=== PATIENT | male | born 1935 | race Caucasian/White ===

== ENCOUNTER 2017-07-27 20:28 | Emergency (ER) | payer MEDICARE, BC ==
[~2017-07-27] VITALS: Ht 5954.8 cm; Wt 95.0 kg
[~2017-07-27 20:28] MED LIST: FURO40TA4 PO; IPRA4AER IH; METH5TAB PO; MULT1TAB74 PO; NORCO10T PO; PANT-47 PO; POTA20TA19 PO
[2017-07-27 22:00] LABS: BASOPHILS % (AUTO) 0.5 % (0-1); EOSINOPHILS # (AUTO) 0.3 X10'3 (0-0.9); EOSINOPHILS % (AUTO) 3.6 % (0-6); HEMATOCRIT 31.5 % (42.0-52.0); HEMOGLOBIN 10.1 g/dl (14.0-17.9); LYMPHOCYTES # (AUTO) 1.1 X10'3 (1.1-4.8); LYMPHOCYTES % (AUTO) 15.7 % (21-51); MEAN CORPUSCULAR HGB CONC 31.9 % (33.0-36.5); MEAN CORPUSCULAR VOLUME 84.7 FL (78-98); MONOCYTES % (AUTO) 13.5 % (2-12); NEUTROPHILS # (AUTO) 4.7 X10'3 (1.8-7.7); NEUTROPHILS % (AUTO) 66.7 % (42-75); PLATELET COUNT 250 X10'3 (140-440); RED BLOOD COUNT 3.72 X10'6 (4.70-6.10); RED CELL DISTRIBUTION WIDTH 17.3 % (11.5-14.5); WHITE BLOOD COUNT 7.1 X10'3 (4.5-11.0)
[2017-07-27] MEDS ORDERED: LISI10TA4 (22:11)
[2017-07-27] MEDS ORDERED: PER5325T (22:11)
[2017-07-27] MEDS ORDERED: APIX5TAB3 (22:11)
[2017-07-27] MEDS ORDERED: CARV-50 (22:11)
[2017-07-27 22:16] LABS: ACETAMINOPHEN < 2.0 UG/ML (10-30); ALANINE AMINOTRANSFERASE 21 U/L (12-78); ALBUMIN 3.4 G/DL (3.4-5.0); ALBUMIN/GLOBULIN RATIO 1.1 (1.1-1.5); ALKALINE PHOSPHATASE 72 IU/L (46-116); ANION GAP 4 (8-16); ASPARTATE AMINO TRANSFERASE 19 U/L (10-37); BILIRUBIN,TOTAL 0.4 MG/DL (0.1-1.0); BLOOD UREA NITROGEN 20 MG/DL (7-18); BUN/CREATININE RATIO 16.3 (5.4-32.0); CALCIUM 8.2 MG/DL (8.5-10.1); CHLORIDE 105 MMOL/L (99-107); CREATININE 1.23 MG/DL (0.60-1.10); ETHANOL 0.202 GM/DL (0.0-0.010); GLUCOSE 94 MG/DL (70-104); POTASSIUM 4.2 MMOL/L (3.5-5.1); SODIUM 142 MMOL/L (135-145); TOTAL CARBON DIOXIDE 32.9 MMOL/L (24-32); TOTAL PROTEIN 6.5 G/DL (6.4-8.2); eGFR 57 ML/MIN
[2017-07-27 22:51] LABS: URINE AMPHETAMINE SCREEN NEGATIVE (Neg); URINE BARBITUATE SCREEN NEGATIVE (Neg); URINE BENZODIAZEPINES SCREEN NEGATIVE (Neg); URINE CANNABINOID SCREEN NEGATIVE (Neg); URINE COCAINE SCREEN NEGATIVE (Neg); URINE METHADONE SCREEN POSITIVE (Neg); URINE OPIATE SCREEN NEGATIVE (Neg); URINE PHENCYCLIDINE SCREEN NEGATIVE (Neg)
[2017-07-28] MEDS ORDERED: ipratropium/albuterol 3ml nebule IH PRN (03:30)
[2017-07-28] MEDS ORDERED: lisinopril 10 MG tablet PO SCH (08:00)
[2017-07-28] MEDS ORDERED: carVEDilol 12.5mg tablet PO SCH (08:00)
[2017-07-28] MEDS ORDERED: potassium Cl 20 mEq SR tablet PO SCH (08:00)
[2017-07-28] MEDS ORDERED: methadone 5mg tablet PO SCH (08:00)
[2017-07-28] MEDS ORDERED: multivitamins, therapeutics tablet PO SCH (08:00)
[2017-07-28] MEDS ORDERED: apixaban 5mg tablet PO SCH (08:00)
[2017-07-28] MEDS ORDERED: HYDROcodone/acetaminophen 10/325mg tab PO ONE (08:45)
[2017-07-28] MEDS ORDERED: LORazepam 1 MG tablet PO ONE (10:45)
[2017-07-28] MEDS ORDERED: LORA0.5T PO (11:20)
[2017-07-28 11:35] VITALS: BP 130/84
== END 2017-07-28 11:42 | disposition home or self-care (01) ==
LOC: ER 20:28
DX: T51.91XA Toxic effect of unspecified alcohol, accidental (unintentional), initial encounter (principal); R45.851 Suicidal ideations; I11.0 Hypertensive heart disease with heart failure; I50.9 Heart failure, unspecified; I48.91 Unspecified atrial fibrillation; J44.9 Chronic obstructive pulmonary disease, unspecified; K21.9 Gastro-esophageal reflux disease without esophagitis; G89.29 Other chronic pain; Z95.0 Presence of cardiac pacemaker; Z79.899 Other long term (current) drug therapy; Y92.89 Other specified places as the place of occurrence of the external cause
CPT/HCPCS: 36415; 80053; 80305; 80320; 80329; 85025; 94760; 99284

== ENCOUNTER 2018-02-07 07:53 | Day surgery (SDC) | payer MEDICARE, BC ==
[2018-01-31 14:37] LABS: BASOPHILS % (AUTO) 0.5 % (0-1); EOSINOPHILS # (AUTO) 0.2 X10'3 (0-0.9); EOSINOPHILS % (AUTO) 2.9 % (0-6); LYMPHOCYTES # (AUTO) 1.1 X10'3 (1.1-4.8); LYMPHOCYTES % (AUTO) 15.6 % (21-51); MEAN CORPUSCULAR HEMOGLOBIN 28.1 PG (27.0-31.0); MEAN CORPUSCULAR HGB CONC 31.8 % (33.0-36.5); MEAN CORPUSCULAR VOLUME 88.1 FL (78-98); MEAN PLATELET VOLUME 6.4 FL (7.4-10.4); MONOCYTES % (AUTO) 14.1 % (2-12); NEUTROPHILS # (AUTO) 4.6 X10'3 (1.8-7.7); NEUTROPHILS % (AUTO) 66.9 % (42-75); PRE OP HEMATOCRIT 33.9 % (42.0-52.0); PRE OP PLATELET COUNT 167 X10'3 (140-440); RED BLOOD COUNT 3.85 X10'6 (4.70-6.10); RED CELL DISTRIBUTION WIDTH 19.7 % (11.5-14.5)
[2018-01-31 14:42] LABS: PRE OP HEMOGLOBIN 10.8 g/dL (14.0-17.9)
[2018-01-31 14:47] LABS: PRE OP INR 1.1 INR; PRE OP PROTIME 10.9 SECONDS (9.0-12.0)
[2018-01-31 14:51] LABS: ALBUMIN 3.5 G/DL (3.4-5.0); ALBUMIN/GLOBULIN RATIO 1.1 (1.1-1.5); ALKALINE PHOSPHATASE 53 IU/L (46-116); BLOOD UREA NITROGEN 24 MG/DL (7-18); BUN/CREATININE RATIO 23.8 (5.4-32.0); CHLORIDE 103 MMOL/L (99-107); CREATININE 1.01 MG/DL (0.60-1.10); PRE OP ALT 18 U/L (30-65); PRE OP ANION GAP 3 (8-16); PRE OP AST 17 U/L (10-37); PRE OP BILIRUB, TOTAL 0.4 MG/DL (0.0-1.0); PRE OP GLUCOSE 108 MG/DL (70-104); PRE OP POTASSIUM 4.4 MMOL/L (3.4-5.1); PRE OP SODIUM 140 MMOL/L (135-145); TOTAL CARBON DIOXIDE 33.6 MMOL/L (24-32); TOTAL PROTEIN 6.7 G/DL (6.4-8.2); eGFR 71 ML/MIN
[~2018-02-07] VITALS: Ht 180.3 cm; Wt 100.5 kg
[2018-02-07] VITALS (7 sets, daily range): BP systolic 130–144; BP diastolic 74–82
[~2018-02-07 07:53] MED LIST changes: +ALBU18HF2 IH; +ASPI-1265 PO; +CARV-50 PO; +Cefazolin 2GM/50ML dext iso,osmotic IVPB IV ONE; +DOCUMENT DATE & TIME OF BETA-BLOCKER PO ONE; -FURO40TA4 PO; +FURO80TA87 PO; -IPRA4AER IH; +LISI40TA4 PO; -MULT1TAB74 PO; -PANT-47 PO; +albuterol 2.5 MG/3 ML nebule NEB ONE; +famotidine 20mg tablet PO ONE; +ringers solution, lacted 1,000 ML IV SCH
[2018-02-07] MEDS ORDERED: LIDOcaine 0.5% (5mg/ml) 50ml vial ONE (09:00)
[2018-02-07] MEDS ORDERED: BUPIVAcaine/PF 2.5mg/ml (0.25%) 10ml vial ONE (10:13)
[2018-02-07] MEDS ORDERED: ondansetron/PF 4mg/2ml inj IV PRN (10:20)
[2018-02-07] MEDS ORDERED: ringers solution, lacted 1,000 ML IV SCH (10:20)
[2018-02-07] MEDS ORDERED: morphine 4 MG/ML inj SYRINge IV PRN (10:20)
[2018-02-07] MEDS ORDERED: midazolam 2 mg/2 ml injection ONE (10:22)
[2018-02-07] MEDS ORDERED: fentaNYL/PF 50MCG/1 ML 2ML syringe ONE (10:22)
[2018-02-07] MEDS ORDERED: labetalol 5mg/ml 20ml inj. IV ONE (10:44)
== END 2018-02-07 11:37 | disposition home or self-care (01) ==
LOC: PAS 07:53
PROVIDERS: ATTEND Orthopaedic Surgery Hand Surgery
DX: G56.02 Carpal tunnel syndrome, left upper limb (principal); I48.91 Unspecified atrial fibrillation; I42.8 Other cardiomyopathies; J44.9 Chronic obstructive pulmonary disease, unspecified; I49.8 Other specified cardiac arrhythmias; I11.0 Hypertensive heart disease with heart failure; I50.9 Heart failure, unspecified; G89.29 Other chronic pain; K21.9 Gastro-esophageal reflux disease without esophagitis; M06.9 Rheumatoid arthritis, unspecified; Z90.89 Acquired absence of other organs; Z79.82 Long term (current) use of aspirin; Z95.1 Presence of aortocoronary bypass graft; Z99.81 Dependence on supplemental oxygen; Z72.89 Other problems related to lifestyle; Z90.49 Acquired absence of other specified parts of digestive tract; Z95.0 Presence of cardiac pacemaker; Z86.14 Personal history of Methicillin resistant Staphylococcus aureus infection; Z87.891 Personal history of nicotine dependence; Z87.01 Personal history of pneumonia (recurrent); Z85.028 Personal history of other malignant neoplasm of stomach; Z96.641 Presence of right artificial hip joint; Z79.891 Long term (current) use of opiate analgesic; Z79.2 Long term (current) use of antibiotics; Z98.890 Other specified postprocedural states; Z79.899 Other long term (current) drug therapy
CPT/HCPCS: 36415; 64721; 71046; 80053; 85025; 85610; 85730; 93005; A6222; A6449; J0690; J2001; J2250; J3010; J3490; J7120

== ENCOUNTER 2018-03-16 12:04 | Inpatient (IN) | payer MEDICARE, BC ==
[~2018-03-16] VITALS: Ht 180.3 cm; Wt 97.7 kg
[~2018-03-16 12:04] MED LIST changes: -Cefazolin 2GM/50ML dext iso,osmotic IVPB IV ONE; -DOCUMENT DATE & TIME OF BETA-BLOCKER PO ONE; -albuterol 2.5 MG/3 ML nebule NEB ONE; -famotidine 20mg tablet PO ONE; -ringers solution, lacted 1,000 ML IV SCH
[2018-03-16] MEDS ORDERED: normal saline 1000ML IV soln IVB ONE (12:30)
[2018-03-16] MEDS ORDERED: ondansetron/PF 4mg/2ml inj IV ONE ×2 (12:30)
[2018-03-16] MEDS ORDERED: pantoprazole 40 MG vial IV ONE ×2 (12:30→14:30)
[2018-03-16 12:57] LABS: BASOPHILS # (AUTO) 0.1 X10'3 (0-0.2); BASOPHILS % (AUTO) 0.8 % (0-1); EOSINOPHILS # (AUTO) 0.3 X10'3 (0-0.9); EOSINOPHILS % (AUTO) 2.8 % (0-6); HEMATOCRIT 36.4 % (42.0-52.0); HEMOGLOBIN 12.1 g/dl (14.0-17.9); LYMPHOCYTES # (AUTO) 1.1 X10'3 (1.1-4.8); LYMPHOCYTES % (AUTO) 9.3 % (21-51); MEAN CORPUSCULAR HEMOGLOBIN 30.1 PG (27.0-31.0); MEAN CORPUSCULAR HGB CONC 33.3 % (33.0-36.5); MEAN CORPUSCULAR VOLUME 90.2 FL (78-98); MEAN PLATELET VOLUME 6.6 FL (7.4-10.4); MONOCYTES # (AUTO) 1.1 X10'3 (0-0.9); MONOCYTES % (AUTO) 9.3 % (2-12); NEUTROPHILS % (AUTO) 77.8 % (42-75); PLATELET COUNT 227 X10'3 (140-440); RED BLOOD COUNT 4.03 X10'6 (4.70-6.10); RED CELL DISTRIBUTION WIDTH 19.2 % (11.5-14.5); WHITE BLOOD COUNT 11.5 X10'3 (4.5-11.0)
[2018-03-16 13:07] LABS: PROTHROMBIN TIME 10.3 SECONDS (9.0-12.0)
[2018-03-16 13:16] LABS: ALANINE AMINOTRANSFERASE 13 U/L (12-78); ALBUMIN 3.7 G/DL (3.4-5.0); ALBUMIN/GLOBULIN RATIO 1.3 (1.1-1.5); ALKALINE PHOSPHATASE 55 IU/L (46-116); ANION GAP 7 (8-16); ASPARTATE AMINO TRANSFERASE 14 U/L (10-37); BILIRUBIN,TOTAL 0.7 MG/DL (0.1-1.0); BLOOD UREA NITROGEN 51 MG/DL (7-18); BUN/CREATININE RATIO 41.5 (5.4-32.0); CALCIUM 8.6 MG/DL (8.5-10.1); CHLORIDE 103 MMOL/L (99-107); CREATININE 1.23 MG/DL (0.60-1.10); GLUCOSE 116 MG/DL (70-104); POTASSIUM 4.6 MMOL/L (3.5-5.1); SODIUM 138 MMOL/L (135-145); TOTAL CARBON DIOXIDE 28.3 MMOL/L (24-32); TOTAL PROTEIN 6.6 G/DL (6.4-8.2); eGFR 57 ML/MIN
[2018-03-16 13:21] LABS: MAGNESIUM 2.1 MG/DL (1.5-2.4); TROPONIN I < 0.04 NG/ML (0.0-0.05)
[2018-03-16] MEDS: morphine 4 MG/ML inj SYRINge IV PRN ×4 (13:25→19:30)
[2018-03-16] MEDS ORDERED: TRAM50TA2 PO (13:36)
[2018-03-16 14:30] LABS: OCCULT BLOOD STOOL POSITIVE (Neg)
[2018-03-16] MEDS: normal saline 1000ml 1,000 ML IV SCH (14:49)
[2018-03-16] MEDS ORDERED: magnesium 1gm/100ml D5W IVPB 100 ML IV PRN (14:50)
[2018-03-16] MEDS ORDERED: diphenhydrAMINE 50 mg/ml inj IV PRN (14:50)
[2018-03-16] MEDS ORDERED: magnesium hydroxide 30ml (MOM) UD suspension PO PRN (14:50)
[2018-03-16] MEDS ORDERED: magnesium 4gm in 100ml NS 100 ML IV PRN (14:50)
[2018-03-16] MEDS ORDERED: potassium Cl 20 mEq SR tablet PO PRN ×2 (14:50)
[2018-03-16] MEDS ORDERED: potassium Cl 40MEQ/NS 500ml 500 ML IV PRN ×2 (14:50)
[2018-03-16] MEDS ORDERED: mag hydrox/Alum hydrox/simeth 30ml oral suspension PO PRN (14:50)
[2018-03-16] MEDS ORDERED: diphenhydrAMINE 25mg capsule PO PRN (14:50)
[2018-03-16] MEDS ORDERED: metoclopramide 5 mg/ml inj IV PRN (14:50)
[2018-03-16] MEDS ORDERED: HYDROcodone/acetaminophen 5mg/325mg tablet PO PRN (14:50)
[2018-03-16] MEDS: K and/or MAG REPLACEMENT MC SCH (14:50)
[2018-03-16] MEDS ORDERED: morphine 4 MG/ML inj SYRINge IV PRN (14:50)
[2018-03-16] MEDS ORDERED: acetaminophen 325mg tablet PO PRN ×2 (14:50)
[2018-03-16] MEDS ORDERED: ondansetron/PF 4mg/2ml inj IV PRN (14:50)
[2018-03-16] MEDS ORDERED: magnesium Cl slow-release 64mg tablet PO PRN (14:50)
[2018-03-16 15:25] LABS: CLARITY,URINE CLEAR (Clear); COLOR,URINE YELLOW (Yellow); GLUCOSE, URINE NEGATIVE (Neg); KETONES,URINE NEGATIVE (Neg); LEUKOCYTE ESTERASE ,URINE NEGATIVE (Neg); NITRITES, URINE NEGATIVE (Neg); OCCULT BLOOD,URINE NEGATIVE (Neg); PROTEIN,URINE NEGATIVE (Neg); UROBILINOGEN,URINE 0.2 E.U/dL (0.2-1.0)
[2018-03-16 15:30] LABS: UA COLLECTION TYPE URINAL
[2018-03-16 16:07] VITALS: BP 144/94
[2018-03-16] MEDS: pantoprazole 40MG/NS 100ML BAG 100 ML IV SCH ×2 (17:12→21:14)
[2018-03-16 19:20] VITALS: BP 135/62
[2018-03-16] MEDS ORDERED: temazepam 15mg capsule PO PRN (21:00)
[2018-03-16] MEDS: carVEDilol 12.5mg tablet PO SCH (21:13)
[2018-03-16] MEDS: albuterol 2.5 MG/3 ML nebule NEB SCH (22:19)
[2018-03-16 23:00] VITALS: BP 103/54
[2018-03-16] MEDS: HYDROcodone/acetaminophen 10/325mg tab PO PRN (23:39)
[2018-03-17] VITALS (15 sets, daily range): BP systolic 91–144; BP diastolic 43–88
[2018-03-17] MEDS: pantoprazole 40MG/NS 100ML BAG 100 ML IV SCH ×5 (01:39→21:04)
[2018-03-17] MEDS: normal saline 1000ml 1,000 ML IV SCH ×3 (01:40→20:49)
[2018-03-17] MEDS: HYDROcodone/acetaminophen 10/325mg tab PO PRN ×4 (03:48→23:50)
[2018-03-17] MEDS: morphine 4 MG/ML inj SYRINge IV PRN ×3 (05:02→15:51)
[2018-03-17 05:46] LABS: BASOPHILS % (AUTO) 0.4 % (0-1); EOSINOPHILS # (AUTO) 0.2 X10'3 (0-0.9); HEMATOCRIT 32.4 % (42.0-52.0); HEMOGLOBIN 10.7 g/dl (14.0-17.9); LYMPHOCYTES # (AUTO) 1.2 X10'3 (1.1-4.8); LYMPHOCYTES % (AUTO) 14.9 % (21-51); MEAN CORPUSCULAR HEMOGLOBIN 30.2 PG (27.0-31.0); MEAN CORPUSCULAR HGB CONC 32.9 % (33.0-36.5); MEAN CORPUSCULAR VOLUME 91.7 FL (78-98); MEAN PLATELET VOLUME 7.3 FL (7.4-10.4); MONOCYTES # (AUTO) 0.9 X10'3 (0-0.9); MONOCYTES % (AUTO) 11.9 % (2-12); NEUTROPHILS # (AUTO) 5.6 X10'3 (1.8-7.7); NEUTROPHILS % (AUTO) 69.8 % (42-75); PLATELET COUNT 199 X10'3 (140-440); RED BLOOD COUNT 3.54 X10'6 (4.70-6.10); RED CELL DISTRIBUTION WIDTH 18.3 % (11.5-14.5); WHITE BLOOD COUNT 7.9 X10'3 (4.5-11.0)
[2018-03-17 06:06] LABS: ANION GAP 7 (8-16); BLOOD UREA NITROGEN 32 MG/DL (7-18); BUN/CREATININE RATIO 34.8 (5.4-32.0); CHLORIDE 107 MMOL/L (99-107); CREATININE 0.92 MG/DL (0.60-1.10); GLUCOSE 93 MG/DL (70-104); POTASSIUM 4.3 MMOL/L (3.5-5.1); SODIUM 140 MMOL/L (135-145); TOTAL CARBON DIOXIDE 26.3 MMOL/L (24-32); eGFR 79 ML/MIN
[2018-03-17 06:07] LABS: ALANINE AMINOTRANSFERASE 11 U/L (12-78); ALBUMIN 2.9 G/DL (3.4-5.0); ALKALINE PHOSPHATASE 44 IU/L (46-116); ASPARTATE AMINO TRANSFERASE 12 U/L (10-37); BILIRUBIN,TOTAL 0.4 MG/DL (0.1-1.0); TOTAL PROTEIN 5.7 G/DL (6.4-8.2)
[2018-03-17] MEDS: K and/or MAG REPLACEMENT MC SCH (08:00)
[2018-03-17] MEDS: furosemide 40mg tablet PO SCH (08:26)
[2018-03-17] MEDS: carVEDilol 12.5mg tablet PO SCH ×2 (08:26→20:00)
[2018-03-17] MEDS: lisinopril 10 MG tablet PO SCH (08:26)
[2018-03-17] MEDS: albuterol 2.5 MG/3 ML nebule NEB SCH ×2 (09:39→20:38)
[2018-03-17] MEDS ORDERED: MIDAZolam 5mg/5ml vial ONE (12:48)
[2018-03-17] MEDS ORDERED: fentaNYL/PF 50MCG/1 ML 2ML syringe ONE (12:48)
[2018-03-17] MEDS ORDERED: LIDOcaine Viscous 15ml cup ONE (12:48)
[2018-03-18] MEDS: normal saline 1000ml 1,000 ML IV SCH ×2 (01:12→11:16)
[2018-03-18] MEDS: pantoprazole 40MG/NS 100ML BAG 100 ML IV SCH ×3 (01:47→11:15)
[2018-03-18] MEDS: morphine 4 MG/ML inj SYRINge IV PRN ×2 (01:56→07:50)
[2018-03-18] MEDS: HYDROcodone/acetaminophen 10/325mg tab PO PRN ×2 (05:40→11:19)
[2018-03-18 06:13] LABS: BASOPHILS % (AUTO) 0.3 % (0-1); EOSINOPHILS # (AUTO) 0.3 X10'3 (0-0.9); EOSINOPHILS % (AUTO) 3.5 % (0-6); HEMATOCRIT 30.8 % (42.0-52.0); HEMOGLOBIN 10.1 g/dl (14.0-17.9); LYMPHOCYTES % (AUTO) 12.4 % (21-51); MEAN CORPUSCULAR HEMOGLOBIN 29.8 PG (27.0-31.0); MEAN CORPUSCULAR VOLUME 90.2 FL (78-98); MEAN PLATELET VOLUME 6.6 FL (7.4-10.4); MONOCYTES # (AUTO) 0.8 X10'3 (0-0.9); NEUTROPHILS # (AUTO) 5.6 X10'3 (1.8-7.7); NEUTROPHILS % (AUTO) 72.8 % (42-75); PLATELET COUNT 182 X10'3 (140-440); RED BLOOD COUNT 3.41 X10'6 (4.70-6.10); RED CELL DISTRIBUTION WIDTH 19.5 % (11.5-14.5); WHITE BLOOD COUNT 7.7 X10'3 (4.5-11.0)
[2018-03-18 06:19] LABS: ALANINE AMINOTRANSFERASE 19 U/L (12-78); ALBUMIN 2.9 G/DL (3.4-5.0); ALKALINE PHOSPHATASE 45 IU/L (46-116); ANION GAP 5 (8-16); ASPARTATE AMINO TRANSFERASE 15 U/L (10-37); BILIRUBIN,TOTAL 0.6 MG/DL (0.1-1.0); BLOOD UREA NITROGEN 23 MG/DL (7-18); BUN/CREATININE RATIO 21.3 (5.4-32.0); CALCIUM 8.3 MG/DL (8.5-10.1); CHLORIDE 105 MMOL/L (99-107); CREATININE 1.08 MG/DL (0.60-1.10); GLUCOSE 114 MG/DL (70-104); MAGNESIUM 1.9 MG/DL (1.5-2.4); POTASSIUM 4.4 MMOL/L (3.5-5.1); SODIUM 139 MMOL/L (135-145); TOTAL CARBON DIOXIDE 28.6 MMOL/L (24-32); TOTAL PROTEIN 5.8 G/DL (6.4-8.2); eGFR 66 ML/MIN
[2018-03-18 06:34] LABS: ANISOCYTOSIS 2+; PLATELET ESTIMATE NORMAL
[2018-03-18 07:00] VITALS: BP 120/51
[2018-03-18] MEDS: lisinopril 10 MG tablet PO SCH (07:48)
[2018-03-18] MEDS: carVEDilol 12.5mg tablet PO SCH (07:49)
[2018-03-18] MEDS: furosemide 40mg tablet PO SCH (07:49)
[2018-03-18] MEDS: K and/or MAG REPLACEMENT MC SCH (08:00)
[2018-03-18] MEDS: albuterol 2.5 MG/3 ML nebule NEB SCH (09:04)
[2018-03-18 11:00] VITALS: BP 106/58
[2018-03-18] MEDS ORDERED: MELA3TAB PO (14:34)
[2018-03-18] MEDS ORDERED: PANT40TA4 PO (14:34)
== END 2018-03-18 15:44 | disposition home or self-care (01) | DRG 377 ==
LOC: ER 12:04 → ED HOLD 14:49 → EDBEDREQ 15:12 → SUR 3N 15:55
PROVIDERS: ADMIT Family Medicine; ATTEND Family Medicine
PROC: 0DB68ZX Excision of Stomach, Via Natural or Artificial Opening Endoscopic, Diagnostic (ICD-10-PCS; principal; 2018-03-17)
DX: K92.1 Melena (principal); N17.0 Acute kidney failure with tubular necrosis; S27.321A Contusion of lung, unilateral, initial encounter; K26.9 Duodenal ulcer, unspecified as acute or chronic, without hemorrhage or perforation; K29.70 Gastritis, unspecified, without bleeding; E86.0 Dehydration; I25.10 Atherosclerotic heart disease of native coronary artery without angina pectoris; D35.01 Benign neoplasm of right adrenal gland; G89.4 Chronic pain syndrome; I11.0 Hypertensive heart disease with heart failure; I48.91 Unspecified atrial fibrillation; I50.9 Heart failure, unspecified; J44.9 Chronic obstructive pulmonary disease, unspecified; J98.4 Other disorders of lung; K21.9 Gastro-esophageal reflux disease without esophagitis; M54.9 Dorsalgia, unspecified; I25.2 Old myocardial infarction; Z98.0 Intestinal bypass and anastomosis status; Z95.0 Presence of cardiac pacemaker; Z79.82 Long term (current) use of aspirin; Z79.899 Other long term (current) drug therapy; Z87.891 Personal history of nicotine dependence; Z87.01 Personal history of pneumonia (recurrent); Z80.0 Family history of malignant neoplasm of digestive organs
CPT/HCPCS: 36415; 43239; 71045; 71250; 80053; 81003; 82272; 83735; 83880; 84100; 84484; 85025; 85610; 86885; 86900; 86901; 87070; 88305; 93005; 94640; 94760; 96361; 96374; 96375; 99285; A4620; C9113; G0500; J2250; J2270; J2405; J3010; J7030

== ENCOUNTER 2018-04-11 16:01 | Emergency (ER) | payer MEDICARE, BC ==
[~2018-04-11] VITALS: Ht 647.4 cm; Wt 101.8 kg
[~2018-04-11 16:01] MED LIST changes: -ASPI-1265 PO; +MELA3TAB PO; -METH5TAB PO; +PANT40TA4 PO; +TRAM50TA2 PO
[2018-04-11 16:40] LABS: BASOPHILS % (AUTO) 0.3 % (0-1); EOSINOPHILS # (AUTO) 0.2 X10'3 (0-0.9); EOSINOPHILS % (AUTO) 2.9 % (0-6); HEMOGLOBIN 8.9 g/dl (14.0-17.9); LYMPHOCYTES # (AUTO) 0.9 X10'3 (1.1-4.8); LYMPHOCYTES % (AUTO) 13.7 % (21-51); MEAN CORPUSCULAR HEMOGLOBIN 28.4 PG (27.0-31.0); MEAN CORPUSCULAR HGB CONC 31.9 % (33.0-36.5); MEAN CORPUSCULAR VOLUME 88.8 FL (78-98); MONOCYTES % (AUTO) 15.3 % (2-12); NEUTROPHILS # (AUTO) 4.5 X10'3 (1.8-7.7); NEUTROPHILS % (AUTO) 67.8 % (42-75); PLATELET COUNT 177 X10'3 (140-440); RED BLOOD COUNT 3.16 X10'6 (4.70-6.10); RED CELL DISTRIBUTION WIDTH 19.1 % (11.5-14.5); WHITE BLOOD COUNT 6.6 X10'3 (4.5-11.0)
[2018-04-11 16:49] LABS: INR 1.1 INR; PARTIAL THROMBOPLASTIN TIME 29 SECONDS (22-32); PROTHROMBIN TIME 11.3 SECONDS (9.0-12.0)
[2018-04-11 16:54] LABS: ALANINE AMINOTRANSFERASE 22 U/L (12-78); ALBUMIN 3.3 G/DL (3.4-5.0); ALBUMIN/GLOBULIN RATIO 1.1 (1.1-1.5); ALKALINE PHOSPHATASE 60 IU/L (46-116); ANION GAP 4 (8-16); ASPARTATE AMINO TRANSFERASE 20 U/L (10-37); BILIRUBIN,TOTAL 0.7 MG/DL (0.1-1.0); BLOOD UREA NITROGEN 19 MG/DL (7-18); BUN/CREATININE RATIO 17.1 (5.4-32.0); CALCIUM 8.4 MG/DL (8.5-10.1); CHLORIDE 105 MMOL/L (99-107); CREATININE 1.11 MG/DL (0.60-1.10); GLUCOSE 90 MG/DL (70-104); POTASSIUM 4.2 MMOL/L (3.5-5.1); SODIUM 145 MMOL/L (135-145); TOTAL CARBON DIOXIDE 36.1 MMOL/L (24-32); TOTAL PROTEIN 6.4 G/DL (6.4-8.2); eGFR 64 ML/MIN
[2018-04-11] MEDS ORDERED: LEVO750T46 PO (17:43)
[2018-04-11] MEDS ORDERED: furosemide 10 MG/1 ML 10ml inj IV ONE (17:55)
[2018-04-11 18:32] VITALS: BP 147/89
== END 2018-04-11 18:35 | disposition home or self-care (01) ==
LOC: ER 16:01
DX: J90 Pleural effusion, not elsewhere classified (principal); J18.1 Lobar pneumonia, unspecified organism; I48.91 Unspecified atrial fibrillation; I25.10 Atherosclerotic heart disease of native coronary artery without angina pectoris; I11.0 Hypertensive heart disease with heart failure; I50.9 Heart failure, unspecified; I25.2 Old myocardial infarction; J44.9 Chronic obstructive pulmonary disease, unspecified; K21.9 Gastro-esophageal reflux disease without esophagitis; G89.29 Other chronic pain; Z87.11 Personal history of peptic ulcer disease; Z90.49 Acquired absence of other specified parts of digestive tract; Z95.0 Presence of cardiac pacemaker; Z98.890 Other specified postprocedural states; Z79.899 Other long term (current) drug therapy; Z99.81 Dependence on supplemental oxygen
CPT/HCPCS: 36415; 71045; 80053; 84484; 85025; 85610; 85730; 93005; 96374; 99285; J1940

== ENCOUNTER 2018-04-18 13:16 | Inpatient (IN) | payer MEDICARE, BC ==
[2018-04-18] VITALS (10 sets, daily range): BP systolic 111–144; BP diastolic 62–86
[~2018-04-18] VITALS: Ht 182.9 cm; Wt 111.3 kg
[~2018-04-18 13:16] MED LIST changes: +LEVO750T46 PO
[2018-04-18 13:45] LABS: BASOPHILS # (AUTO) 0.1 X10'3 (0-0.2); BASOPHILS % (AUTO) 1.4 % (0-1); EOSINOPHILS % (AUTO) 0.5 % (0-6); HEMOGLOBIN 9.5 g/dl (14.0-17.9); LYMPHOCYTES # (AUTO) 0.8 X10'3 (1.1-4.8); LYMPHOCYTES % (AUTO) 9.8 % (21-51); MEAN CORPUSCULAR HEMOGLOBIN 27.5 PG (27.0-31.0); MEAN CORPUSCULAR HGB CONC 31.5 % (33.0-36.5); MEAN CORPUSCULAR VOLUME 87.4 FL (78-98); MEAN PLATELET VOLUME 6.6 FL (7.4-10.4); MONOCYTES # (AUTO) 1.4 X10'3 (0-0.9); MONOCYTES % (AUTO) 17.4 % (2-12); NEUTROPHILS # (AUTO) 5.9 X10'3 (1.8-7.7); NEUTROPHILS % (AUTO) 70.9 % (42-75); PLATELET COUNT 174 X10'3 (140-440); RED BLOOD COUNT 3.44 X10'6 (4.70-6.10); RED CELL DISTRIBUTION WIDTH 19.7 % (11.5-14.5); WHITE BLOOD COUNT 8.3 X10'3 (4.5-11.0)
[2018-04-18 13:55] LABS: INR 1.4 INR; PARTIAL THROMBOPLASTIN TIME 31 SECONDS (22-32)
[2018-04-18 13:59] LABS: ANISOCYTOSIS 2+; ELLIPTOCYTES FEW; HYPOCHROMASIA 1+; PLATELET ESTIMATE NORMAL; POLYCHROMASIA 1+; TARGET CELLS FEW
[2018-04-18 14:00] LABS: SCHISTOCYTES FEW
[2018-04-18 14:07] LABS: ALANINE AMINOTRANSFERASE 22 U/L (12-78); ALBUMIN 3.5 G/DL (3.4-5.0); ALBUMIN/GLOBULIN RATIO 1.2 (1.1-1.5); ALKALINE PHOSPHATASE 67 IU/L (46-116); ANION GAP 8 (8-16); ASPARTATE AMINO TRANSFERASE 26 U/L (10-37); BLOOD UREA NITROGEN 41 MG/DL (7-18); BUN/CREATININE RATIO 22.7 (5.4-32.0); CALCIUM 9.6 MG/DL (8.5-10.1); CHLORIDE 100 MMOL/L (99-107); CREATININE 1.81 MG/DL (0.60-1.10); GLUCOSE 104 MG/DL (70-104); POTASSIUM 4.2 MMOL/L (3.5-5.1); SODIUM 142 MMOL/L (135-145); TOTAL CARBON DIOXIDE 34.2 MMOL/L (24-32); TOTAL PROTEIN 6.5 G/DL (6.4-8.2); eGFR 36 ML/MIN
[2018-04-18] MEDS ORDERED: acetaminophen 325mg tablet PO PRN ×2 (15:25)
[2018-04-18] MEDS ORDERED: mag hydrox/Alum hydrox/simeth 30ml oral suspension PO PRN (15:25)
[2018-04-18] MEDS ORDERED: potassium Cl 40MEQ/NS 500ml 500 ML IV PRN ×2 (15:25)
[2018-04-18] MEDS ORDERED: potassium Cl 20 mEq SR tablet PO PRN ×2 (15:25)
[2018-04-18] MEDS ORDERED: magnesium Cl slow-release 64mg tablet PO PRN (15:25)
[2018-04-18] MEDS ORDERED: magnesium 4gm in 100ml NS 100 ML IV PRN (15:25)
[2018-04-18] MEDS ORDERED: magnesium hydroxide 30ml (MOM) UD suspension PO PRN (15:25)
[2018-04-18] MEDS ORDERED: magnesium 1gm/100ml D5W IVPB 100 ML IV PRN (15:25)
[2018-04-18] MEDS ORDERED: ondansetron/PF 4mg/2ml inj IV PRN (15:25)
[2018-04-18] MEDS ORDERED: albuterol 2.5 MG/3 ML nebule NEB PRN (15:35)
[2018-04-18] MEDS: normal saline 1000ml 1,000 ML IV SCH (16:00)
[2018-04-18] MEDS: pantoprazole 40mg Tablet.DR PO SCH (20:39)
[2018-04-18] MEDS: heparin, porcine 5000 units/ml vial SQ SCH (20:40)
[2018-04-18] MEDS ORDERED: temazepam 15mg capsule PO PRN (21:00)
[2018-04-18 21:21] LABS: HEMATOCRIT 28.9 % (42.0-52.0); HEMOGLOBIN 9.2 g/dl (14.0-17.9); MEAN CORPUSCULAR HEMOGLOBIN 27.3 PG (27.0-31.0); MEAN CORPUSCULAR HGB CONC 31.8 % (33.0-36.5); MEAN CORPUSCULAR VOLUME 85.8 FL (78-98); MEAN PLATELET VOLUME 6.5 FL (7.4-10.4); PLATELET COUNT 153 X10'3 (140-440); RED BLOOD COUNT 3.36 X10'6 (4.70-6.10); WHITE BLOOD COUNT 6.8 X10'3 (4.5-11.0)
[2018-04-18] MEDS: HYDROcodone/acetaminophen 5mg/325mg tablet PO PRN (22:15)
[2018-04-19] VITALS (8 sets, daily range): BP systolic 104–158; BP diastolic 53–93
[2018-04-19] MEDS: morphine 2 MG/ML inj. syringe IV PRN (01:32)
[2018-04-19] MEDS: normal saline 1000ml 1,000 ML IV SCH ×2 (01:32→13:08)
[2018-04-19 01:44] LABS: INR 1.3 INR; PROTHROMBIN TIME 13.3 SECONDS (9.0-12.0)
[2018-04-19 01:49] LABS: ANION GAP 9 (8-16); BLOOD UREA NITROGEN 37 MG/DL (7-18); BUN/CREATININE RATIO 26.1 (5.4-32.0); CHLORIDE 102 MMOL/L (99-107); CREATININE 1.42 MG/DL (0.60-1.10); GLUCOSE 109 MG/DL (70-104); POTASSIUM 3.5 MMOL/L (3.5-5.1); SODIUM 142 MMOL/L (135-145); TOTAL CARBON DIOXIDE 31.2 MMOL/L (24-32)
[2018-04-19 01:50] LABS: ALANINE AMINOTRANSFERASE 22 U/L (12-78); ALBUMIN 3.2 G/DL (3.4-5.0); ALBUMIN/GLOBULIN RATIO 1.1 (1.1-1.5); ALKALINE PHOSPHATASE 66 IU/L (46-116); ASPARTATE AMINO TRANSFERASE 25 U/L (10-37); BILIRUBIN,TOTAL 0.9 MG/DL (0.1-1.0); CALCIUM 8.5 MG/DL (8.5-10.1); TOTAL PROTEIN 6.1 G/DL (6.4-8.2); eGFR 48 ML/MIN
[2018-04-19 01:52] LABS: MAGNESIUM 2.2 MG/DL (1.5-2.4)
[2018-04-19 02:25] LABS: HEMOGLOBIN 9.9 g/dl (14.0-17.9); RED BLOOD COUNT 3.65 X10'6 (4.70-6.10); WHITE BLOOD COUNT 7.5 X10'3 (4.5-11.0)
[2018-04-19 02:26] LABS: HEMATOCRIT 31.5 % (42.0-52.0); MEAN CORPUSCULAR HEMOGLOBIN 27.2 PG (27.0-31.0); MEAN CORPUSCULAR HGB CONC 31.5 % (33.0-36.5); MEAN CORPUSCULAR VOLUME 86.4 FL (78-98); PLATELET COUNT 147 X10'3 (140-440); RED CELL DISTRIBUTION WIDTH 18.5 % (11.5-14.5)
[2018-04-19] MEDS: HYDROcodone/acetaminophen 5mg/325mg tablet PO PRN ×4 (03:13→19:55)
[2018-04-19 03:14] LABS: ANISOCYTOSIS 2+; PLATELET ESTIMATE NORMAL; TOTAL CELLS COUNTED 100
[2018-04-19 03:15] LABS: HYPOCHROMASIA 1+; POLYCHROMASIA 1+
[2018-04-19] MEDS: K and/or MAG REPLACEMENT MC SCH (07:32)
[2018-04-19] MEDS: pantoprazole 40mg Tablet.DR PO SCH ×2 (07:37→19:54)
[2018-04-19] MEDS: heparin, porcine 5000 units/ml vial SQ SCH ×2 (07:38→20:01)
[2018-04-19 09:59] LABS: BASOPHILS % (AUTO) 0 % (0-1); EOSINOPHILS # (AUTO) 0.2 X10'3 (0-0.9); EOSINOPHILS % (AUTO) 2.4 % (0-6); HEMATOCRIT 32.3 % (42.0-52.0); HEMOGLOBIN 10.4 g/dl (14.0-17.9); LYMPHOCYTES # (AUTO) 0.6 X10'3 (1.1-4.8); MEAN CORPUSCULAR HEMOGLOBIN 27.8 PG (27.0-31.0); MEAN CORPUSCULAR HGB CONC 32.2 % (33.0-36.5); MEAN CORPUSCULAR VOLUME 86.4 FL (78-98); MEAN PLATELET VOLUME 6.7 FL (7.4-10.4); MONOCYTES % (AUTO) 12.2 % (2-12); NEUTROPHILS # (AUTO) 6.7 X10'3 (1.8-7.7); NEUTROPHILS % (AUTO) 78.4 % (42-75); PLATELET COUNT 173 X10'3 (140-440); RED BLOOD COUNT 3.74 X10'6 (4.70-6.10); RED CELL DISTRIBUTION WIDTH 19.7 % (11.5-14.5); WHITE BLOOD COUNT 8.5 X10'3 (4.5-11.0)
[2018-04-19 10:43] LABS: ANISOCYTOSIS 2+; HYPOCHROMASIA 1+; PLATELET ESTIMATE NORMAL; POLYCHROMASIA 1+; TARGET CELLS FEW
[2018-04-19 10:44] LABS: ELLIPTOCYTES FEW; SCHISTOCYTES FEW; TEAR DROP CELLS FEW
[2018-04-19 15:45] LABS: BASOPHILS # (AUTO) 0.1 X10'3 (0-0.2); BASOPHILS % (AUTO) 1.3 % (0-1); EOSINOPHILS # (AUTO) 0.1 X10'3 (0-0.9); EOSINOPHILS % (AUTO) 1.5 % (0-6); HEMATOCRIT 33.9 % (42.0-52.0); HEMOGLOBIN 10.7 g/dl (14.0-17.9); LYMPHOCYTES # (AUTO) 0.8 X10'3 (1.1-4.8); LYMPHOCYTES % (AUTO) 8.6 % (21-51); MEAN CORPUSCULAR HEMOGLOBIN 27.5 PG (27.0-31.0); MEAN CORPUSCULAR HGB CONC 31.6 % (33.0-36.5); MEAN CORPUSCULAR VOLUME 87.1 FL (78-98); MEAN PLATELET VOLUME 6.7 FL (7.4-10.4); MONOCYTES # (AUTO) 1.5 X10'3 (0-0.9); NEUTROPHILS % (AUTO) 72.6 % (42-75); PLATELET COUNT 198 X10'3 (140-440); RED BLOOD COUNT 3.89 X10'6 (4.70-6.10); RED CELL DISTRIBUTION WIDTH 19.9 % (11.5-14.5); WHITE BLOOD COUNT 9.6 X10'3 (4.5-11.0)
[2018-04-19] MEDS: aspirin 81mg tablet.DR PO SCH (16:19)
[2018-04-19] MEDS: potassium Cl 20mEq in NS 1,000 ML IV SCH (18:05)
[2018-04-19] MEDS: metoprolol tartrate 12.5mg (1/2 tablet) PO SCH (19:54)
[2018-04-20 03:00] VITALS: BP 159/86
[2018-04-20] MEDS: potassium Cl 20mEq in NS 1,000 ML IV SCH ×2 (05:12→21:43)
[2018-04-20 06:00] VITALS: BP 110/72
[2018-04-20 06:31] LABS: INR 1.2 INR; PROTHROMBIN TIME 12.7 SECONDS (9.0-12.0)
[2018-04-20 06:38] LABS: BASOPHILS % (AUTO) 0.4 % (0-1); EOSINOPHILS # (AUTO) 0.2 X10'3 (0-0.9); EOSINOPHILS % (AUTO) 2.2 % (0-6); HEMATOCRIT 33.6 % (42.0-52.0); HEMOGLOBIN 10.6 g/dl (14.0-17.9); LYMPHOCYTES # (AUTO) 0.9 X10'3 (1.1-4.8); LYMPHOCYTES % (AUTO) 9.3 % (21-51); MEAN CORPUSCULAR HEMOGLOBIN 27.6 PG (27.0-31.0); MEAN CORPUSCULAR HGB CONC 31.7 % (33.0-36.5); MEAN CORPUSCULAR VOLUME 87.2 FL (78-98); MEAN PLATELET VOLUME 6.7 FL (7.4-10.4); MONOCYTES # (AUTO) 1.8 X10'3 (0-0.9); MONOCYTES % (AUTO) 18.5 % (2-12); NEUTROPHILS # (AUTO) 6.9 X10'3 (1.8-7.7); NEUTROPHILS % (AUTO) 69.6 % (42-75); PLATELET COUNT 196 X10'3 (140-440); RED BLOOD COUNT 3.85 X10'6 (4.70-6.10); RED CELL DISTRIBUTION WIDTH 20.2 % (11.5-14.5)
[2018-04-20 06:47] LABS: ALANINE AMINOTRANSFERASE 24 U/L (12-78); ALBUMIN 3.4 G/DL (3.4-5.0); ALBUMIN/GLOBULIN RATIO 1.1 (1.1-1.5); ALKALINE PHOSPHATASE 65 IU/L (46-116); ANION GAP 9 (8-16); ASPARTATE AMINO TRANSFERASE 27 U/L (10-37); BILIRUBIN,TOTAL 1.1 MG/DL (0.1-1.0); BLOOD UREA NITROGEN 30 MG/DL (7-18); BUN/CREATININE RATIO 23.4 (5.4-32.0); CALCIUM 8.8 MG/DL (8.5-10.1); CHLORIDE 103 MMOL/L (99-107); CREATININE 1.28 MG/DL (0.60-1.10); GLUCOSE 129 MG/DL (70-104); MAGNESIUM 2.2 MG/DL (1.5-2.4); POTASSIUM 3.7 MMOL/L (3.5-5.1); SODIUM 144 MMOL/L (135-145); TOTAL CARBON DIOXIDE 32.2 MMOL/L (24-32); TOTAL PROTEIN 6.5 G/DL (6.4-8.2); eGFR 54 ML/MIN
[2018-04-20] MEDS: metoprolol tartrate 12.5mg (1/2 tablet) PO SCH (07:46)
[2018-04-20] MEDS: pantoprazole 40mg Tablet.DR PO SCH ×2 (07:46→19:13)
[2018-04-20] MEDS: heparin, porcine 5000 units/ml vial SQ SCH ×2 (08:00→19:13)
[2018-04-20] MEDS: K and/or MAG REPLACEMENT MC SCH (08:00)
[2018-04-20] MEDS: aspirin 81mg tablet.DR PO SCH (08:00)
[2018-04-20 11:00] VITALS: BP 148/63
[2018-04-20] MEDS: lisinopril 2.5mg tablet PO SCH (12:50)
[2018-04-20 15:00] VITALS: BP 146/86
[2018-04-20] MEDS: HYDROcodone/acetaminophen 5mg/325mg tablet PO PRN ×2 (15:23→23:01)
[2018-04-20 19:00] VITALS: BP 122/89
[2018-04-20] MEDS: metoprolol tartrate 25mg tablet PO SCH (19:13)
[2018-04-20 23:00] VITALS: BP 128/76
[2018-04-21 03:00] VITALS: BP 123/64
[2018-04-21] MEDS: HYDROcodone/acetaminophen 5mg/325mg tablet PO PRN ×5 (03:15→21:27)
[2018-04-21 05:34] LABS: INR 1.2 INR; PROTHROMBIN TIME 12.5 SECONDS (9.0-12.0)
[2018-04-21 05:47] LABS: ALANINE AMINOTRANSFERASE 24 U/L (12-78); ALBUMIN 3.3 G/DL (3.4-5.0); ALBUMIN/GLOBULIN RATIO 1.1 (1.1-1.5); ALKALINE PHOSPHATASE 66 IU/L (46-116); ANION GAP 7 (8-16); ASPARTATE AMINO TRANSFERASE 30 U/L (10-37); BILIRUBIN,TOTAL 1.1 MG/DL (0.1-1.0); BLOOD UREA NITROGEN 25 MG/DL (7-18); BUN/CREATININE RATIO 21.6 (5.4-32.0); CALCIUM 8.6 MG/DL (8.5-10.1); CHLORIDE 102 MMOL/L (99-107); CREATININE 1.16 MG/DL (0.60-1.10); GLUCOSE 104 MG/DL (70-104); MAGNESIUM 2.2 MG/DL (1.5-2.4); POTASSIUM 3.8 MMOL/L (3.5-5.1); SODIUM 142 MMOL/L (135-145); TOTAL CARBON DIOXIDE 32.6 MMOL/L (24-32); TOTAL PROTEIN 6.2 G/DL (6.4-8.2); eGFR 61 ML/MIN
[2018-04-21 06:25] VITALS: BP 105/67
[2018-04-21] MEDS: metoprolol tartrate 25mg tablet PO SCH ×2 (07:23→19:42)
[2018-04-21] MEDS: pantoprazole 40mg Tablet.DR PO SCH ×2 (07:23→19:42)
[2018-04-21] MEDS: lisinopril 2.5mg tablet PO SCH (07:23)
[2018-04-21] MEDS: heparin, porcine 5000 units/ml vial SQ SCH ×2 (07:24→19:42)
[2018-04-21] MEDS: aspirin 81mg tablet.DR PO SCH (08:00)
[2018-04-21] MEDS: K and/or MAG REPLACEMENT MC SCH (08:21)
[2018-04-21 08:47] LABS: CLARITY,URINE CLEAR (Clear); COLOR,URINE YELLOW (Yellow); GLUCOSE, URINE NEGATIVE (Neg); KETONES,URINE NEGATIVE (Neg); LEUKOCYTE ESTERASE ,URINE NEGATIVE (Neg); NITRITES, URINE NEGATIVE (Neg); OCCULT BLOOD,URINE NEGATIVE (Neg); PROTEIN,URINE 30 mg/dl (Neg); UROBILINOGEN,URINE 0.2 E.U/dL (0.2-1.0)
[2018-04-21 09:10] LABS: UA COLLECTION TYPE CLN CATCH MIDSTREAM
[2018-04-21 09:11] LABS: SQUAMOUS EPITHELIAL CELL,UR FEW /LPF (FEW)
[2018-04-21 09:12] LABS: BACTERIA,URINE FEW /HPF (Neg); RBC,URINE 0-2 /HPF (0-2); WBC,URINE 0-4 /HPF (0-4)
[2018-04-21 11:00] VITALS: BP 121/71
[2018-04-21 15:00] VITALS: BP 108/55
[2018-04-21 19:00] VITALS: BP 106/61
[2018-04-21] MEDS ORDERED: bisacodyl 10mg suppository rectal RC PRN (19:25)
[2018-04-21 23:00] VITALS: BP 89/71
[2018-04-22] MEDS: HYDROcodone/acetaminophen 5mg/325mg tablet PO PRN ×2 (01:40→05:42)
[2018-04-22 03:00] VITALS: BP 120/62
[2018-04-22 06:00] VITALS: BP 105/59
[2018-04-22 07:11] LABS: INR 1.2 INR; PROTHROMBIN TIME 12.1 SECONDS (9.0-12.0)
[2018-04-22] MEDS: metoprolol tartrate 25mg tablet PO SCH (07:15)
[2018-04-22] MEDS: pantoprazole 40mg Tablet.DR PO SCH (07:15)
[2018-04-22] MEDS: heparin, porcine 5000 units/ml vial SQ SCH (07:16)
[2018-04-22] MEDS: lisinopril 2.5mg tablet PO SCH (07:16)
[2018-04-22] MEDS: morphine 2 MG/ML inj. syringe IV PRN (07:17)
[2018-04-22 07:30] LABS: ALANINE AMINOTRANSFERASE 24 U/L (12-78); ALBUMIN 3.2 G/DL (3.4-5.0); ALBUMIN/GLOBULIN RATIO 1.1 (1.1-1.5); ALKALINE PHOSPHATASE 61 IU/L (46-116); ANION GAP 9 (8-16); ASPARTATE AMINO TRANSFERASE 30 U/L (10-37); BILIRUBIN,TOTAL 0.9 MG/DL (0.1-1.0); BLOOD UREA NITROGEN 29 MG/DL (7-18); BUN/CREATININE RATIO 22.1 (5.4-32.0); CALCIUM 8.6 MG/DL (8.5-10.1); CHLORIDE 102 MMOL/L (99-107); CREATININE 1.31 MG/DL (0.60-1.10); GLUCOSE 109 MG/DL (70-104); MAGNESIUM 2.2 MG/DL (1.5-2.4); POTASSIUM 4.2 MMOL/L (3.5-5.1); SODIUM 143 MMOL/L (135-145); TOTAL CARBON DIOXIDE 32.4 MMOL/L (24-32); TOTAL PROTEIN 6.1 G/DL (6.4-8.2); eGFR 53 ML/MIN
[2018-04-22 07:40] LABS: BASOPHILS % (AUTO) 0.5 % (0-1); EOSINOPHILS # (AUTO) 0.2 X10'3 (0-0.9); EOSINOPHILS % (AUTO) 2.6 % (0-6); HEMATOCRIT 33.3 % (42.0-52.0); HEMOGLOBIN 10.4 g/dl (14.0-17.9); LYMPHOCYTES # (AUTO) 0.9 X10'3 (1.1-4.8); LYMPHOCYTES % (AUTO) 10.4 % (21-51); MEAN CORPUSCULAR HEMOGLOBIN 27.4 PG (27.0-31.0); MEAN CORPUSCULAR HGB CONC 31.1 % (33.0-36.5); MEAN PLATELET VOLUME 6.8 FL (7.4-10.4); MONOCYTES # (AUTO) 1.5 X10'3 (0-0.9); MONOCYTES % (AUTO) 16.7 % (2-12); NEUTROPHILS # (AUTO) 6.3 X10'3 (1.8-7.7); NEUTROPHILS % (AUTO) 69.8 % (42-75); PLATELET COUNT 218 X10'3 (140-440); RED BLOOD COUNT 3.79 X10'6 (4.70-6.10); RED CELL DISTRIBUTION WIDTH 20.7 % (11.5-14.5)
[2018-04-22] MEDS: K and/or MAG REPLACEMENT MC SCH (08:00)
[2018-04-22] MEDS: aspirin 81mg tablet.DR PO SCH (08:00)
[2018-04-22] MEDS ORDERED: polyethylene glycol 3350 17gm powd pack PO SCH (08:00)
[2018-04-22 08:14] LABS: PLATELET ESTIMATE NORMAL
[2018-04-22 08:15] LABS: ANISOCYTOSIS 3+
[2018-04-22 08:18] LABS: POLYCHROMASIA 1+
[2018-04-22 11:00] VITALS: BP 110/71
[2018-04-24 15:24] LABS: OCCULT BLOOD STOOL NEGATIVE (Neg)
== END 2018-04-22 12:58 | disposition left against medical advice (07) | DRG 811 ==
LOC: ER 13:17 → ED HOLD 15:24 → PCU 3S 16:20
PROVIDERS: ADMIT Internal Medicine; ATTEND Internal Medicine
PROC: 30233N1 Transfusion of Nonautologous Red Blood Cells into Peripheral Vein, Percutaneous Approach (ICD-10-PCS; principal; 2018-04-18)
PROC: 4B02XSZ Measurement of Cardiac Pacemaker, External Approach (ICD-10-PCS; 2018-04-20)
DX: D64.9 Anemia, unspecified (principal); N17.0 Acute kidney failure with tubular necrosis; I13.0 Hypertensive heart and chronic kidney disease with heart failure and stage 1 through stage 4 chronic kidney disease, or unspecified chronic kidney disease; I47.2 Ventricular tachycardia; I42.9 Cardiomyopathy, unspecified; R55 Syncope and collapse; I48.91 Unspecified atrial fibrillation; R09.02 Hypoxemia; I25.10 Atherosclerotic heart disease of native coronary artery without angina pectoris; G89.4 Chronic pain syndrome; K59.00 Constipation, unspecified; M54.9 Dorsalgia, unspecified; N18.3 Chronic kidney disease, stage 3 (moderate); E86.0 Dehydration; I65.21 Occlusion and stenosis of right carotid artery; Z53.21 Procedure and treatment not carried out due to patient leaving prior to being seen by health care provider; I50.9 Heart failure, unspecified; J44.9 Chronic obstructive pulmonary disease, unspecified; K21.9 Gastro-esophageal reflux disease without esophagitis; Z95.0 Presence of cardiac pacemaker; Z87.11 Personal history of peptic ulcer disease; Z87.01 Personal history of pneumonia (recurrent); I25.2 Old myocardial infarction
CPT/HCPCS: 36415; 70450; 71045; 74022; 80053; 81001; 82272; 83735; 84484; 85025; 85027; 85610; 85730; 86885; 86900; 86901; 86920; 87070; 93005; 93306; 93880; 97116; 97162; 97530; 99285; A6212; J1644; J2270; J2405; J7030; P9016

== ENCOUNTER 2018-05-12 12:07 | Inpatient (IN) | payer MEDICARE, BC ==
[~2018-05-12] VITALS: Ht 182.9 cm; Wt 102.0 kg
[~2018-05-12 12:07] MED LIST changes: -LEVO750T46 PO
[2018-05-12 12:41] LABS: BASOPHILS % (AUTO) 0.2 % (0-1); EOSINOPHILS % (AUTO) 0.3 % (0-6); HEMATOCRIT 36.8 % (42.0-52.0); HEMOGLOBIN 11.3 g/dl (14.0-17.9); LYMPHOCYTES # (AUTO) 0.8 X10'3 (1.1-4.8); LYMPHOCYTES % (AUTO) 6.8 % (21-51); MEAN CORPUSCULAR HEMOGLOBIN 26.6 PG (27.0-31.0); MEAN CORPUSCULAR HGB CONC 30.7 % (33.0-36.5); MEAN CORPUSCULAR VOLUME 86.7 FL (78-98); MEAN PLATELET VOLUME 7.4 FL (7.4-10.4); MONOCYTES # (AUTO) 1.8 X10'3 (0-0.9); NEUTROPHILS # (AUTO) 9.4 X10'3 (1.8-7.7); NEUTROPHILS % (AUTO) 77.7 % (42-75); PLATELET COUNT 188 X10'3 (140-440); RED BLOOD COUNT 4.25 X10'6 (4.70-6.10); RED CELL DISTRIBUTION WIDTH 22.3 % (11.5-14.5); WHITE BLOOD COUNT 12.1 X10'3 (4.5-11.0)
[2018-05-12 12:57] LABS: ALANINE AMINOTRANSFERASE 26 U/L (12-78); ALBUMIN 3.6 G/DL (3.4-5.0); ALBUMIN/GLOBULIN RATIO 1.2 (1.1-1.5); ALKALINE PHOSPHATASE 78 IU/L (46-116); ANION GAP 8 (8-16); ASPARTATE AMINO TRANSFERASE 32 U/L (10-37); BILIRUBIN,TOTAL 0.8 MG/DL (0.1-1.0); BLOOD UREA NITROGEN 38 MG/DL (7-18); BUN/CREATININE RATIO 22.1 (5.4-32.0); CALCIUM 8.5 MG/DL (8.5-10.1); CHLORIDE 99 MMOL/L (99-107); CREATININE 1.72 MG/DL (0.60-1.10); GLUCOSE 71 MG/DL (70-104); POTASSIUM 3.7 MMOL/L (3.5-5.1); SODIUM 141 MMOL/L (135-145); TOTAL CARBON DIOXIDE 33.7 MMOL/L (24-32); TOTAL PROTEIN 6.7 G/DL (6.4-8.2); eGFR 38 ML/MIN
[2018-05-12 13:05] LABS: TROPONIN I < 0.04 NG/ML (0.0-0.05)
[2018-05-12] MEDS ORDERED: pantoprazole 40 MG vial IV ONE ×2 (13:10→19:45)
[2018-05-12 13:29] LABS: ANISOCYTOSIS 3+; HYPOCHROMASIA 1+; POIKILOCYTOSIS 1+; POLYCHROMASIA 1+
[2018-05-12 13:30] LABS: ELLIPTOCYTES 1+; SCHISTOCYTES FEW; SPHEROCYTES FEW; TARGET CELLS FEW
[2018-05-12 13:31] LABS: TEAR DROP CELLS 1+
[2018-05-12 13:37] LABS: INR 1.6 INR; PARTIAL THROMBOPLASTIN TIME 34 SECONDS (22-32); PROTHROMBIN TIME 15.2 SECONDS (9.0-12.0)
[2018-05-12 13:54] LABS: CLARITY,URINE CLEAR (Clear); COLOR,URINE YELLOW (Yellow); GLUCOSE, URINE NEGATIVE (Neg); KETONES,URINE NEGATIVE (Neg); LEUKOCYTE ESTERASE ,URINE NEGATIVE (Neg); NITRITES, URINE NEGATIVE (Neg); OCCULT BLOOD,URINE NEGATIVE (Neg); PH,URINE 5.5 (4.8-8.0); PROTEIN,URINE NEGATIVE (Neg); UROBILINOGEN,URINE 0.2 E.U/dL (0.2-1.0)
[2018-05-12 13:55] LABS: UA COLLECTION TYPE URINAL
[2018-05-12 14:07] LABS: PLATELET ESTIMATE NORMAL
[2018-05-12] MEDS ORDERED: magnesium hydroxide 30ml (MOM) UD suspension PO PRN (19:45)
[2018-05-12] MEDS ORDERED: morphine 2 MG/ML inj. syringe IV PRN (19:45)
[2018-05-12] MEDS ORDERED: potassium Cl 40MEQ/NS 500ml 500 ML IV PRN ×2 (19:45)
[2018-05-12] MEDS ORDERED: magnesium Cl slow-release 64mg tablet PO PRN (19:45)
[2018-05-12] MEDS ORDERED: magnesium 1gm/100ml D5W IVPB 100 ML IV PRN (19:45)
[2018-05-12] MEDS ORDERED: potassium Cl 20 mEq SR tablet PO PRN (19:45)
[2018-05-12] MEDS ORDERED: ondansetron/PF 4mg/2ml inj IV PRN (19:45)
[2018-05-12] MEDS ORDERED: magnesium 4gm in 100ml NS 100 ML IV PRN (19:45)
[2018-05-12] MEDS ORDERED: mag hydrox/Alum hydrox/simeth 30ml oral suspension PO PRN (19:45)
[2018-05-12] MEDS ORDERED: acetaminophen 325mg tablet PO PRN ×2 (19:45)
[2018-05-12 21:40] VITALS: BP 108/88
[2018-05-13] MEDS: HYDROcodone/acetaminophen 5mg/325mg tablet PO PRN ×2 (02:12→20:35)
[2018-05-13 05:59] VITALS: BP 117/70
[2018-05-13 06:34] LABS: BASOPHILS % (AUTO) 0.1 % (0-1); EOSINOPHILS # (AUTO) 0.2 X10'3 (0-0.9); EOSINOPHILS % (AUTO) 2.5 % (0-6); HEMATOCRIT 34.9 % (42.0-52.0); HEMOGLOBIN 10.6 g/dl (14.0-17.9); LYMPHOCYTES # (AUTO) 0.9 X10'3 (1.1-4.8); LYMPHOCYTES % (AUTO) 9.3 % (21-51); MEAN CORPUSCULAR HEMOGLOBIN 26.5 PG (27.0-31.0); MEAN CORPUSCULAR HGB CONC 30.4 % (33.0-36.5); MEAN CORPUSCULAR VOLUME 87.1 FL (78-98); MONOCYTES # (AUTO) 1.2 X10'3 (0-0.9); MONOCYTES % (AUTO) 12.7 % (2-12); NEUTROPHILS # (AUTO) 6.9 X10'3 (1.8-7.7); NEUTROPHILS % (AUTO) 75.4 % (42-75); PLATELET COUNT 168 X10'3 (140-440); RED CELL DISTRIBUTION WIDTH 22.7 % (11.5-14.5); WHITE BLOOD COUNT 9.2 X10'3 (4.5-11.0)
[2018-05-13 06:48] LABS: ANISOCYTOSIS 3+; PLATELET ESTIMATE NORMAL; SCHISTOCYTES FEW; SPHEROCYTES FEW
[2018-05-13 06:53] LABS: ALANINE AMINOTRANSFERASE 26 U/L (12-78); ALBUMIN/GLOBULIN RATIO 1.1 (1.1-1.5); ALKALINE PHOSPHATASE 66 IU/L (46-116); ANION GAP 7 (8-16); ASPARTATE AMINO TRANSFERASE 26 U/L (10-37); BILIRUBIN,TOTAL 0.8 MG/DL (0.1-1.0); BLOOD UREA NITROGEN 26 MG/DL (7-18); BUN/CREATININE RATIO 22.4 (5.4-32.0); CALCIUM 8.2 MG/DL (8.5-10.1); CHLORIDE 103 MMOL/L (99-107); CREATININE 1.16 MG/DL (0.60-1.10); GLUCOSE 92 MG/DL (70-104); MAGNESIUM 2.1 MG/DL (1.5-2.4); POTASSIUM 3.2 MMOL/L (3.5-5.1); SODIUM 145 MMOL/L (135-145); TOTAL CARBON DIOXIDE 35.1 MMOL/L (24-32); TOTAL PROTEIN 5.8 G/DL (6.4-8.2); eGFR 61 ML/MIN
[2018-05-13] MEDS: K and/or MAG REPLACEMENT MC SCH (07:55)
[2018-05-13] MEDS: potassium Cl 20 mEq SR tablet PO PRN ×3 (08:00→22:21)
[2018-05-13] MEDS ORDERED: furosemide 40mg/4ml inj IV SCH (08:00)
[2018-05-13] MEDS ORDERED: enoxaparin 40mg/0.4ml syringe SQ SCH (08:00)
[2018-05-13 08:55] VITALS: BP 117/70
[2018-05-13] MEDS ORDERED: albuterol 2.5 MG/3 ML nebule NEB PRN (09:10)
[2018-05-13 10:00] VITALS: BP 132/84
[2018-05-13 10:12] LABS: OCCULT BLOOD STOOL POSITIVE (Neg)
[2018-05-13] MEDS: pantoprazole 40 MG vial IV SCH ×2 (10:13→20:35)
[2018-05-13] MEDS: piperacillin/tazo 3.375gm/50ml 50 ML IV SCH ×3 (10:13→20:35)
[2018-05-13] MEDS: normal saline 1000ml 1,000 ML IV SCH (10:19)
[2018-05-13 18:00] VITALS: BP 114/53
[2018-05-13] MEDS: carVEDilol 12.5mg tablet PO SCH (20:35)
[2018-05-13] MEDS: Melatonin 3mg tablet PO SCH (20:35)
[2018-05-13] MEDS: lactobacillus rhamnosus 10,000 MMU CELLS/CAPSULE PO SCH (20:35)
[2018-05-13] MEDS ORDERED: VANCOMYCIN LEVEL IV ONE (21:30)
[2018-05-13 22:00] VITALS: BP 106/57
[2018-05-14] VITALS (9 sets, daily range): BP systolic 85–184; BP diastolic 42–97
[2018-05-14] MEDS: piperacillin/tazo 3.375gm/50ml 50 ML IV SCH ×2 (02:56→09:28)
[2018-05-14] MEDS: normal saline 1000ml 1,000 ML IV SCH (06:15)
[2018-05-14 07:30] LABS: BASOPHILS % (AUTO) 0.3 % (0-1); EOSINOPHILS # (AUTO) 0.2 X10'3 (0-0.9); EOSINOPHILS % (AUTO) 3.3 % (0-6); HEMATOCRIT 34.4 % (42.0-52.0); HEMOGLOBIN 10.6 g/dl (14.0-17.9); LYMPHOCYTES # (AUTO) 0.7 X10'3 (1.1-4.8); LYMPHOCYTES % (AUTO) 10.1 % (21-51); MEAN CORPUSCULAR HEMOGLOBIN 26.6 PG (27.0-31.0); MEAN CORPUSCULAR HGB CONC 30.6 % (33.0-36.5); MEAN CORPUSCULAR VOLUME 86.8 FL (78-98); MEAN PLATELET VOLUME 6.6 FL (7.4-10.4); MONOCYTES % (AUTO) 14.4 % (2-12); NEUTROPHILS # (AUTO) 5.2 X10'3 (1.8-7.7); NEUTROPHILS % (AUTO) 71.9 % (42-75); PLATELET COUNT 170 X10'3 (140-440); RED BLOOD COUNT 3.96 X10'6 (4.70-6.10); RED CELL DISTRIBUTION WIDTH 22.8 % (11.5-14.5); WHITE BLOOD COUNT 7.2 X10'3 (4.5-11.0)
[2018-05-14 07:42] LABS: ALANINE AMINOTRANSFERASE 20 U/L (12-78); ALBUMIN 2.9 G/DL (3.4-5.0); ALKALINE PHOSPHATASE 69 IU/L (46-116); ANION GAP 3 (8-16); ASPARTATE AMINO TRANSFERASE 20 U/L (10-37); BILIRUBIN,TOTAL 0.9 MG/DL (0.1-1.0); BLOOD UREA NITROGEN 17 MG/DL (7-18); BUN/CREATININE RATIO 15.9 (5.4-32.0); CALCIUM 7.6 MG/DL (8.5-10.1); CHLORIDE 104 MMOL/L (99-107); CREATININE 1.07 MG/DL (0.60-1.10); GLUCOSE 107 MG/DL (70-104); MAGNESIUM 1.9 MG/DL (1.5-2.4); POTASSIUM 3.8 MMOL/L (3.5-5.1); SODIUM 145 MMOL/L (135-145); TOTAL PROTEIN 5.7 G/DL (6.4-8.2); eGFR 66 ML/MIN
[2018-05-14 07:44] LABS: ANISOCYTOSIS 3+; PLATELET ESTIMATE NORMAL; SCHISTOCYTES FEW
[2018-05-14] MEDS: K and/or MAG REPLACEMENT MC SCH (08:00)
[2018-05-14] MEDS ORDERED: furosemide 40mg tablet PO SCH (08:00)
[2018-05-14] MEDS: lactobacillus rhamnosus 10,000 MMU CELLS/CAPSULE PO SCH ×2 (09:12→19:54)
[2018-05-14] MEDS: lisinopril 10 MG tablet PO SCH (09:13)
[2018-05-14] MEDS: carVEDilol 12.5mg tablet PO SCH ×2 (09:13→19:54)
[2018-05-14] MEDS: HYDROcodone/acetaminophen 5mg/325mg tablet PO PRN ×2 (09:14→19:54)
[2018-05-14] MEDS: pantoprazole 40 MG vial IV SCH ×2 (09:28→19:54)
[2018-05-14] MEDS: levoFLOXACIN-Levaquin 750MG/D5 150 ML IV SCH (13:41)
[2018-05-14] MEDS: ipratropium/albuterol 3ml nebule NEB SCH ×3 (15:45→23:48)
[2018-05-14] MEDS ORDERED: fentaNYL/PF 50MCG/1 ML 2ML syringe ONE (15:49)
[2018-05-14] MEDS ORDERED: LIDOcaine Viscous 15ml cup ONE (15:49)
[2018-05-14] MEDS ORDERED: MIDAZolam 5mg/5ml vial ONE (15:49)
[2018-05-14] MEDS: Melatonin 3mg tablet PO SCH (19:53)
[2018-05-14] MEDS: potassium Cl 20 mEq SR tablet PO SCH (19:53)
[2018-05-14] MEDS: furosemide 40mg tablet PO SCH (19:54)
[2018-05-15] MEDS: HYDROcodone/acetaminophen 5mg/325mg tablet PO PRN ×3 (01:56→10:34)
[2018-05-15] MEDS: ipratropium/albuterol 3ml nebule NEB SCH ×3 (03:24→11:00)
[2018-05-15 06:00] VITALS: BP 124/66
[2018-05-15 06:58] LABS: BASOPHILS % (AUTO) 0.1 % (0-1); EOSINOPHILS # (AUTO) 0.2 X10'3 (0-0.9); EOSINOPHILS % (AUTO) 3.5 % (0-6); HEMATOCRIT 34.4 % (42.0-52.0); HEMOGLOBIN 10.5 g/dl (14.0-17.9); LYMPHOCYTES # (AUTO) 0.7 X10'3 (1.1-4.8); LYMPHOCYTES % (AUTO) 10.1 % (21-51); MEAN CORPUSCULAR HEMOGLOBIN 26.5 PG (27.0-31.0); MEAN CORPUSCULAR HGB CONC 30.5 % (33.0-36.5); MEAN CORPUSCULAR VOLUME 86.8 FL (78-98); MEAN PLATELET VOLUME 6.5 FL (7.4-10.4); MONOCYTES # (AUTO) 1.1 X10'3 (0-0.9); MONOCYTES % (AUTO) 15.7 % (2-12); NEUTROPHILS % (AUTO) 70.6 % (42-75); PLATELET COUNT 167 X10'3 (140-440); RED BLOOD COUNT 3.97 X10'6 (4.70-6.10); RED CELL DISTRIBUTION WIDTH 22.6 % (11.5-14.5); WHITE BLOOD COUNT 7.1 X10'3 (4.5-11.0)
[2018-05-15 07:06] LABS: ALANINE AMINOTRANSFERASE 21 U/L (12-78); ALBUMIN 2.9 G/DL (3.4-5.0); ALKALINE PHOSPHATASE 67 IU/L (46-116); ANION GAP 5 (8-16); ASPARTATE AMINO TRANSFERASE 22 U/L (10-37); BLOOD UREA NITROGEN 13 MG/DL (7-18); BUN/CREATININE RATIO 13.1 (5.4-32.0); CALCIUM 7.8 MG/DL (8.5-10.1); CHLORIDE 99 MMOL/L (99-107); CREATININE 0.99 MG/DL (0.60-1.10); GLUCOSE 102 MG/DL (70-104); MAGNESIUM 1.7 MG/DL (1.5-2.4); POTASSIUM 3.5 MMOL/L (3.5-5.1); SODIUM 143 MMOL/L (135-145); TOTAL CARBON DIOXIDE 39.3 MMOL/L (24-32); TOTAL PROTEIN 5.9 G/DL (6.4-8.2); eGFR 73 ML/MIN
[2018-05-15 07:23] LABS: ANISOCYTOSIS 3+; ELLIPTOCYTES 1+; PLATELET ESTIMATE NORMAL
[2018-05-15 07:26] VITALS: BP 98/64
[2018-05-15 07:55] VITALS: BP 124/64
[2018-05-15] MEDS: carVEDilol 12.5mg tablet PO SCH (07:55)
[2018-05-15] MEDS: lactobacillus rhamnosus 10,000 MMU CELLS/CAPSULE PO SCH (07:55)
[2018-05-15] MEDS: potassium Cl 20 mEq SR tablet PO SCH (07:56)
[2018-05-15] MEDS: lisinopril 10 MG tablet PO SCH (07:56)
[2018-05-15] MEDS: levoFLOXACIN-Levaquin 750MG/D5 150 ML IV SCH (07:57)
[2018-05-15] MEDS: furosemide 40mg tablet PO SCH (07:57)
[2018-05-15 08:00] VITALS: BP_SYST 132; BP_SYST 149; BP_SYST 169; BP_DIAS 69; BP_DIAS 71; BP_DIAS 76
[2018-05-15] MEDS: K and/or MAG REPLACEMENT MC SCH (08:00)
[2018-05-15] MEDS: pantoprazole 40 MG vial IV SCH (08:00)
[2018-05-15 10:00] VITALS: BP_SYST 154; BP_SYST 158; BP_SYST 178; BP_SYST 85; BP_DIAS 43; BP_DIAS 64; BP_DIAS 71; BP_DIAS 72
[2018-05-15] MEDS ORDERED: LEVO750T21 PO (10:19)
[2018-05-15] MEDS ORDERED: PANT-47 PO (10:19)
== END 2018-05-15 12:25 | disposition home or self-care (01) | DRG 377 ==
LOC: ER 12:07 → ED HOLD 19:42 → ORTHO 4S 21:20
PROVIDERS: ADMIT Internal Medicine; ATTEND Internal Medicine
PROC: 0DB98ZX Excision of Duodenum, Via Natural or Artificial Opening Endoscopic, Diagnostic (ICD-10-PCS; principal; 2018-05-14)
DX: K26.4 Chronic or unspecified duodenal ulcer with hemorrhage (principal); J96.20 Acute and chronic respiratory failure, unspecified whether with hypoxia or hypercapnia; I50.23 Acute on chronic systolic (congestive) heart failure; J18.9 Pneumonia, unspecified organism; N17.9 Acute kidney failure, unspecified; J44.1 Chronic obstructive pulmonary disease with (acute) exacerbation; J44.0 Chronic obstructive pulmonary disease with (acute) lower respiratory infection; R65.10 Systemic inflammatory response syndrome (SIRS) of non-infectious origin without acute organ dysfunction; D62 Acute posthemorrhagic anemia; I13.0 Hypertensive heart and chronic kidney disease with heart failure and stage 1 through stage 4 chronic kidney disease, or unspecified chronic kidney disease; N18.3 Chronic kidney disease, stage 3 (moderate); D35.01 Benign neoplasm of right adrenal gland; E87.6 Hypokalemia; I48.91 Unspecified atrial fibrillation; M54.9 Dorsalgia, unspecified; K21.0 Gastro-esophageal reflux disease with esophagitis; G89.4 Chronic pain syndrome; I25.10 Atherosclerotic heart disease of native coronary artery without angina pectoris; I25.2 Old myocardial infarction; Z95.0 Presence of cardiac pacemaker; Z79.899 Other long term (current) drug therapy; Z87.891 Personal history of nicotine dependence
CPT/HCPCS: 36415; 43239; 71045; 74176; 80053; 81003; 82272; 83735; 83880; 84145; 84484; 85025; 85610; 85730; 86885; 86900; 86901; 87040; 87070; 93005; 94640; 94760; 96374; 99152; 99285; A4620; C9113; G0378; J1650; J1940; J1956; J2250; J2543; J3010; J3370; J7030

== ENCOUNTER 2018-05-26 10:08 | Inpatient (IN) | payer MEDICARE, BC ==
[~2018-05-26] VITALS: Ht 180.3 cm; Wt 104.5 kg
[~2018-05-26 10:08] MED LIST changes: +PANT-47 PO; -PANT40TA4 PO; -TRAM50TA2 PO
[2018-05-26 10:55] LABS: BASOPHILS % (AUTO) 0.3 % (0-1); EOSINOPHILS # (AUTO) 0.3 X10'3 (0-0.9); EOSINOPHILS % (AUTO) 3.9 % (0-6); HEMATOCRIT 31.6 % (42.0-52.0); HEMOGLOBIN 9.8 g/dl (14.0-17.9); LYMPHOCYTES # (AUTO) 0.4 X10'3 (1.1-4.8); LYMPHOCYTES % (AUTO) 4.8 % (21-51); MEAN CORPUSCULAR HEMOGLOBIN 26.6 PG (27.0-31.0); MEAN CORPUSCULAR HGB CONC 30.8 % (33.0-36.5); MEAN CORPUSCULAR VOLUME 86.4 FL (78-98); MEAN PLATELET VOLUME 6.5 FL (7.4-10.4); MONOCYTES # (AUTO) 1.3 X10'3 (0-0.9); MONOCYTES % (AUTO) 15.6 % (2-12); NEUTROPHILS # (AUTO) 6.4 X10'3 (1.8-7.7); NEUTROPHILS % (AUTO) 75.4 % (42-75); PLATELET COUNT 251 X10'3 (140-440); RED BLOOD COUNT 3.66 X10'6 (4.70-6.10); WHITE BLOOD COUNT 8.4 X10'3 (4.5-11.0)
[2018-05-26 11:09] LABS: ALANINE AMINOTRANSFERASE 19 U/L (12-78); ALBUMIN 2.9 G/DL (3.4-5.0); ALBUMIN/GLOBULIN RATIO 0.8 (1.1-1.5); ALKALINE PHOSPHATASE 98 IU/L (46-116); ANION GAP 2 (8-16); ASPARTATE AMINO TRANSFERASE 18 U/L (10-37); BLOOD UREA NITROGEN 55 MG/DL (7-18); BUN/CREATININE RATIO 29.7 (5.4-32.0); CALCIUM 8.7 MG/DL (8.5-10.1); CHLORIDE 99 MMOL/L (99-107); CREATININE 1.85 MG/DL (0.60-1.10); GLUCOSE 115 MG/DL (70-104); POTASSIUM 5.3 MMOL/L (3.5-5.1); SODIUM 137 MMOL/L (135-145); TOTAL CARBON DIOXIDE 36.4 MMOL/L (24-32); TOTAL PROTEIN 6.4 G/DL (6.4-8.2); eGFR 35 ML/MIN
[2018-05-26 11:10] LABS: INR 1.1 INR; PARTIAL THROMBOPLASTIN TIME 34 SECONDS (22-32); PROTHROMBIN TIME 11.4 SECONDS (9.0-12.0)
[2018-05-26 11:37] LABS: ANISOCYTOSIS 3+; HYPOCHROMASIA 1+; PLATELET ESTIMATE NORMAL; POIKILOCYTOSIS 1+; POLYCHROMASIA FEW; TARGET CELLS FEW; TEAR DROP CELLS FEW
[2018-05-26 11:45] LABS: CLARITY,URINE CLEAR (Clear); COLOR,URINE YELLOW (Yellow); GLUCOSE, URINE NEGATIVE (Neg); KETONES,URINE NEGATIVE (Neg); LEUKOCYTE ESTERASE ,URINE NEGATIVE (Neg); NITRITES, URINE NEGATIVE (Neg); OCCULT BLOOD,URINE NEGATIVE (Neg); PROTEIN,URINE NEGATIVE (Neg); UROBILINOGEN,URINE 0.2 E.U/dL (0.2-1.0)
[2018-05-26 11:50] LABS: UA COLLECTION TYPE VOIDED
[2018-05-26] MEDS ORDERED: furosemide 10 MG/1 ML 10ml inj IV ONE (11:50)
[2018-05-26] MEDS ORDERED: morphine 4 MG/ML inj SYRINge IV ONE ×2 (11:55→14:55)
[2018-05-26] MEDS ORDERED: mag hydrox/Alum hydrox/simeth 30ml oral suspension PO PRN (13:25)
[2018-05-26] MEDS ORDERED: ondansetron/PF 4mg/2ml inj IV PRN (13:25)
[2018-05-26] MEDS ORDERED: bisacodyl 10mg suppository rectal RC PRN (13:25)
[2018-05-26] MEDS ORDERED: HYDROcodone/acetaminophen 5mg/325mg tablet PO PRN (13:25)
[2018-05-26] MEDS ORDERED: magnesium hydroxide 30ml (MOM) UD suspension PO PRN (13:25)
[2018-05-26] MEDS ORDERED: acetaminophen 325mg tablet PO PRN (13:25)
[2018-05-26] MEDS ORDERED: magnesium Cl slow-release 64mg tablet PO PRN (13:25)
[2018-05-26] MEDS ORDERED: potassium Cl 40MEQ/NS 500ml 500 ML IV PRN ×2 (13:25)
[2018-05-26] MEDS ORDERED: magnesium 4gm in 100ml NS 100 ML IV PRN (13:25)
[2018-05-26] MEDS ORDERED: magnesium 1gm/100ml D5W IVPB 100 ML IV PRN (13:25)
[2018-05-26] MEDS ORDERED: potassium Cl 20 mEq SR tablet PO PRN ×2 (13:25)
[2018-05-26] MEDS ORDERED: morphine 2 MG/ML inj. syringe IV PRN ×2 (13:25)
[2018-05-26] MEDS ORDERED: HYDROcodone/acetaminophen 10/325mg tab PO PRN (13:25)
[2018-05-26] MEDS ORDERED: albuterol 2.5 MG/3 ML nebule NEB PRN (13:40)
[2018-05-26] MEDS ORDERED: BUME1TAB4 PO (14:16)
[2018-05-26] MEDS ORDERED: BUPR2TAB11 SL (14:18)
[2018-05-26] MEDS ORDERED: GABA-532 PO (14:18)
[2018-05-26] MEDS ORDERED: TIZA2TAB4 PO (14:20)
[2018-05-26] MEDS ORDERED: DIPH50CA3 PO (14:21)
[2018-05-26] MEDS: aspirin 81mg tablet.DR PO SCH (14:56)
[2018-05-26 16:30] VITALS: BP 160/85
[2018-05-26] MEDS: furosemide 20 MG/2 ML vial IV SCH (16:50)
[2018-05-26] MEDS ORDERED: TIZANIDINE HCL PO PRN (18:25)
[2018-05-26] MEDS ORDERED: tizanidine 4mg tablet PO PRN (18:30)
[2018-05-26 19:00] VITALS: BP 91/54
[2018-05-26] MEDS ORDERED: non-formulary drug (Albuterol Sulfate (Ventolin Hfa) 2 PUFFS) IH SCH (20:00)
[2018-05-26] MEDS ORDERED: pantoprazole 40mg Tablet.DR PO SCH (20:00)
[2018-05-26] MEDS: docusate sod 100mg capsule PO SCH (20:00)
[2018-05-26 20:05] VITALS: BP 126/64
[2018-05-26] MEDS: heparin, porcine 5000 units/ml vial SQ SCH (20:05)
[2018-05-26] MEDS: pantoprazole 40 MG vial IV SCH (20:05)
[2018-05-26] MEDS: HYDROcodone/acetaminophen 10/325mg tab PO PRN (20:06)
[2018-05-26] MEDS: diphenhydrAMINE 25mg capsule PO SCH (20:18)
[2018-05-26] MEDS: carVEDilol 12.5mg tablet PO SCH (20:18)
[2018-05-26] MEDS ORDERED: DIPHENHYDRAMINE HCL PO SCH (21:00)
[2018-05-26 22:56] VITALS: BP 93/55
[2018-05-27 03:00] VITALS: BP 115/60
[2018-05-27] MEDS: HYDROcodone/acetaminophen 10/325mg tab PO PRN ×2 (04:31→19:12)
[2018-05-27 05:10] LABS: BASOPHILS # (AUTO) 0.1 X10'3 (0-0.2); BASOPHILS % (AUTO) 0.6 % (0-1); EOSINOPHILS # (AUTO) 0.4 X10'3 (0-0.9); EOSINOPHILS % (AUTO) 5.4 % (0-6); HEMATOCRIT 31.2 % (42.0-52.0); HEMOGLOBIN 9.8 g/dl (14.0-17.9); LYMPHOCYTES # (AUTO) 0.6 X10'3 (1.1-4.8); LYMPHOCYTES % (AUTO) 7.9 % (21-51); MEAN CORPUSCULAR HGB CONC 31.5 % (33.0-36.5); MEAN CORPUSCULAR VOLUME 85.7 FL (78-98); MEAN PLATELET VOLUME 6.6 FL (7.4-10.4); MONOCYTES # (AUTO) 1.4 X10'3 (0-0.9); MONOCYTES % (AUTO) 17.5 % (2-12); NEUTROPHILS # (AUTO) 5.6 X10'3 (1.8-7.7); NEUTROPHILS % (AUTO) 68.6 % (42-75); PLATELET COUNT 277 X10'3 (140-440); RED BLOOD COUNT 3.64 X10'6 (4.70-6.10); WHITE BLOOD COUNT 8.2 X10'3 (4.5-11.0)
[2018-05-27 05:23] LABS: ALANINE AMINOTRANSFERASE 15 U/L (12-78); ALBUMIN 2.9 G/DL (3.4-5.0); ALBUMIN/GLOBULIN RATIO 0.8 (1.1-1.5); ALKALINE PHOSPHATASE 96 IU/L (46-116); ANION GAP 3 (8-16); ASPARTATE AMINO TRANSFERASE 17 U/L (10-37); BILIRUBIN,TOTAL 1.2 MG/DL (0.1-1.0); BLOOD UREA NITROGEN 45 MG/DL (7-18); CALCIUM 8.8 MG/DL (8.5-10.1); CHLORIDE 98 MMOL/L (99-107); CREATININE 1.61 MG/DL (0.60-1.10); GLUCOSE 89 MG/DL (70-104); MAGNESIUM 2.1 MG/DL (1.5-2.4); POTASSIUM 4.6 MMOL/L (3.5-5.1); SODIUM 136 MMOL/L (135-145); TOTAL CARBON DIOXIDE 34.9 MMOL/L (24-32); TOTAL PROTEIN 6.4 G/DL (6.4-8.2); eGFR 41 ML/MIN
[2018-05-27 05:41] LABS: ANISOCYTOSIS 3+; HYPOCHROMASIA 1+; PLATELET ESTIMATE NORMAL; POIKILOCYTOSIS 1+; SCHISTOCYTES FEW; TARGET CELLS FEW
[2018-05-27 06:00] VITALS: BP 103/59
[2018-05-27] MEDS: pantoprazole 40 MG vial IV SCH (07:39)
[2018-05-27] MEDS: docusate sod 100mg capsule PO SCH ×2 (07:40→19:12)
[2018-05-27] MEDS: carVEDilol 12.5mg tablet PO SCH ×2 (07:40→19:13)
[2018-05-27] MEDS: heparin, porcine 5000 units/ml vial SQ SCH ×2 (07:40→19:12)
[2018-05-27] MEDS: aspirin 81mg tablet.DR PO SCH (07:40)
[2018-05-27] MEDS: gabapentin 300mg capsule PO SCH (07:40)
[2018-05-27] MEDS ORDERED: K and/or MAG REPLACEMENT MC SCH (08:00)
[2018-05-27] MEDS ORDERED: non-formulary drug (Buprenorphine Hcl 1 TAB) SL SCH (08:00)
[2018-05-27] MEDS ORDERED: non-formulary drug (Lisinopril* 10 MG) PO SCH (08:00)
[2018-05-27] MEDS: furosemide 20 MG/2 ML vial IV SCH ×3 (08:00→23:44)
[2018-05-27] MEDS ORDERED: buprenorphine/naloxone 2-0.5mg sublingual tablet SL SCH (08:00)
[2018-05-27] MEDS: lisinopril 10 MG tablet PO SCH (08:00)
[2018-05-27] MEDS: albuterol 2.5 MG/3 ML nebule NEB SCH ×2 (09:00→19:51)
[2018-05-27 11:00] VITALS: BP 150/117
[2018-05-27 15:00] VITALS: BP 115/55
[2018-05-27 19:00] VITALS: BP 148/73
[2018-05-27] MEDS: pantoprazole 40mg Tablet.DR PO SCH (19:12)
[2018-05-27] MEDS: diphenhydrAMINE 25mg capsule PO SCH (20:23)
[2018-05-27 23:00] VITALS: BP 107/56
[2018-05-28 03:00] VITALS: BP 123/69
[2018-05-28 05:27] LABS: ALANINE AMINOTRANSFERASE 14 U/L (12-78); ALBUMIN 2.6 G/DL (3.4-5.0); ALBUMIN/GLOBULIN RATIO 0.8 (1.1-1.5); ALKALINE PHOSPHATASE 92 IU/L (46-116); ANION GAP 3 (8-16); ASPARTATE AMINO TRANSFERASE 14 U/L (10-37); BLOOD UREA NITROGEN 32 MG/DL (7-18); BUN/CREATININE RATIO 29.1 (5.4-32.0); CALCIUM 8.8 MG/DL (8.5-10.1); CHLORIDE 97 MMOL/L (99-107); GLUCOSE 108 MG/DL (70-104); POTASSIUM 4.1 MMOL/L (3.5-5.1); SODIUM 138 MMOL/L (135-145); TOTAL CARBON DIOXIDE 37.9 MMOL/L (24-32); TOTAL PROTEIN 5.9 G/DL (6.4-8.2); eGFR 64 ML/MIN
[2018-05-28 06:00] VITALS: BP 144/74
[2018-05-28] MEDS: lisinopril 10 MG tablet PO SCH (08:00)
[2018-05-28] MEDS: docusate sod 100mg capsule PO SCH (08:58)
[2018-05-28] MEDS: furosemide 20 MG/2 ML vial IV SCH (08:58)
[2018-05-28] MEDS: heparin, porcine 5000 units/ml vial SQ SCH (08:59)
[2018-05-28] MEDS: carVEDilol 12.5mg tablet PO SCH (08:59)
[2018-05-28] MEDS: aspirin 81mg tablet.DR PO SCH (09:00)
[2018-05-28] MEDS: gabapentin 300mg capsule PO SCH (09:00)
[2018-05-28] MEDS: pantoprazole 40mg Tablet.DR PO SCH (09:00)
[2018-05-28] MEDS: albuterol 2.5 MG/3 ML nebule NEB SCH (09:35)
[2018-05-28] MEDS ORDERED: ASPI-1071 PO (10:35)
[2018-05-28 11:00] VITALS: BP 137/81
== END 2018-05-28 13:20 | DRG 562 ==
LOC: ER 10:09 → PCU 3S 13:23 → CMPBEDREQ 19:33
PROVIDERS: ADMIT Internal Medicine; ATTEND Internal Medicine
DX: S82.61XA Displaced fracture of lateral malleolus of right fibula, initial encounter for closed fracture (principal); I50.23 Acute on chronic systolic (congestive) heart failure; I13.0 Hypertensive heart and chronic kidney disease with heart failure and stage 1 through stage 4 chronic kidney disease, or unspecified chronic kidney disease; N17.9 Acute kidney failure, unspecified; J96.10 Chronic respiratory failure, unspecified whether with hypoxia or hypercapnia; J98.11 Atelectasis; N18.9 Chronic kidney disease, unspecified; D64.9 Anemia, unspecified; E87.5 Hyperkalemia; G62.9 Polyneuropathy, unspecified; G89.4 Chronic pain syndrome; I48.91 Unspecified atrial fibrillation; I95.1 Orthostatic hypotension; J43.9 Emphysema, unspecified; K21.9 Gastro-esophageal reflux disease without esophagitis; Z96.641 Presence of right artificial hip joint; I25.10 Atherosclerotic heart disease of native coronary artery without angina pectoris; M54.9 Dorsalgia, unspecified; S82.435A Nondisplaced oblique fracture of shaft of left fibula, initial encounter for closed fracture; W18.39XA Other fall on same level, initial encounter; I25.2 Old myocardial infarction; Z90.49 Acquired absence of other specified parts of digestive tract; Z95.0 Presence of cardiac pacemaker; Z99.81 Dependence on supplemental oxygen; Z91.81 History of falling; Z87.11 Personal history of peptic ulcer disease; Z87.891 Personal history of nicotine dependence; Y92.89 Other specified places as the place of occurrence of the external cause; Y93.89 Activity, other specified; Y99.8 Other external cause status
CPT/HCPCS: 36415; 71045; 73502; 73610; 74018; 80053; 81003; 83735; 83880; 84484; 85025; 85610; 85730; 87070; 93005; 94640; 94760; 96374; 96375; 97110; 97116; 97161; 97530; 99285; C9113; G0378; J1644; J1940; J2270; Q0163

== ENCOUNTER 2018-05-30 14:28 | Inpatient (IN) | payer MEDICARE, BC ==
[~2018-05-30] VITALS: Ht 180.3 cm; Wt 105.8 kg
[~2018-05-30 14:28] MED LIST changes: +ASPI-1071 PO; +BUME1TAB4 PO; +BUPR2TAB11 SL; +DIPH50CA3 PO; -FURO80TA87 PO; +GABA-532 PO; -MELA3TAB PO; -POTA20TA19 PO; +TIZA2TAB4 PO
[2018-05-30] MEDS ORDERED: normal saline 1000ML IV soln IV ONE (14:45)
[2018-05-30 15:06] LABS: BASOPHILS # (AUTO) 0.1 X10'3 (0-0.2); BASOPHILS % (AUTO) 0.8 % (0-1); EOSINOPHILS # (AUTO) 0.4 X10'3 (0-0.9); EOSINOPHILS % (AUTO) 5.3 % (0-6); HEMOGLOBIN 8.4 g/dl (14.0-17.9); LYMPHOCYTES # (AUTO) 0.6 X10'3 (1.1-4.8); LYMPHOCYTES % (AUTO) 8.7 % (21-51); MEAN CORPUSCULAR HEMOGLOBIN 26.9 PG (27.0-31.0); MEAN PLATELET VOLUME 6.2 FL (7.4-10.4); MONOCYTES # (AUTO) 1.3 X10'3 (0-0.9); MONOCYTES % (AUTO) 18.4 % (2-12); NEUTROPHILS # (AUTO) 4.8 X10'3 (1.8-7.7); NEUTROPHILS % (AUTO) 66.8 % (42-75); PLATELET COUNT 322 X10'3 (140-440); RED CELL DISTRIBUTION WIDTH 23.8 % (11.5-14.5); WHITE BLOOD COUNT 7.1 X10'3 (4.5-11.0)
[2018-05-30] MEDS ORDERED: pantoprazole 40 MG vial IV ONE (15:20)
[2018-05-30 15:21] LABS: ALANINE AMINOTRANSFERASE 17 U/L (12-78); ALBUMIN 2.4 G/DL (3.4-5.0); ALBUMIN/GLOBULIN RATIO 0.7 (1.1-1.5); ALKALINE PHOSPHATASE 101 IU/L (46-116); ANION GAP 3 (8-16); ASPARTATE AMINO TRANSFERASE 17 U/L (10-37); BILIRUBIN,TOTAL 0.6 MG/DL (0.1-1.0); BLOOD UREA NITROGEN 54 MG/DL (7-18); BUN/CREATININE RATIO 28.3 (5.4-32.0); CALCIUM 7.7 MG/DL (8.5-10.1); CHLORIDE 103 MMOL/L (99-107); CREATININE 1.91 MG/DL (0.60-1.10); GLUCOSE 75 MG/DL (70-104); POTASSIUM 4.7 MMOL/L (3.5-5.1); SODIUM 141 MMOL/L (135-145); TOTAL PROTEIN 5.7 G/DL (6.4-8.2); eGFR 34 ML/MIN
[2018-05-30 15:27] LABS: INR 1.1 INR; PARTIAL THROMBOPLASTIN TIME 31 SECONDS (22-32); PROTHROMBIN TIME 11.3 SECONDS (9.0-12.0)
[2018-05-30] MEDS ORDERED: tranexamic acid 100mg/ml inj. IV ONE (15:30)
[2018-05-30 15:32] LABS: ANISOCYTOSIS 3+; ELLIPTOCYTES 1+; HYPOCHROMASIA 2+; PLATELET ESTIMATE NORMAL
[2018-05-30 15:52] LABS: CLARITY,URINE CLEAR (Clear); COLOR,URINE YELLOW (Yellow); GLUCOSE, URINE NEGATIVE (Neg); KETONES,URINE NEGATIVE (Neg); LEUKOCYTE ESTERASE ,URINE NEGATIVE (Neg); NITRITES, URINE NEGATIVE (Neg); OCCULT BLOOD,URINE NEGATIVE (Neg); PH,URINE 5.5 (4.8-8.0); PROTEIN,URINE NEGATIVE (Neg); UROBILINOGEN,URINE 0.2 E.U/dL (0.2-1.0)
[2018-05-30 15:58] LABS: UA COLLECTION TYPE FOLEY CATH
[2018-05-30] MEDS ORDERED: normal saline 1000ml 1,000 ML IV ONE (16:00)
[2018-05-30] MEDS: pantoprazole 40MG/NS 100ML BAG 100 ML IV SCH ×3 (16:00→21:47)
[2018-05-30] MEDS ORDERED: HYDROcodone/acetaminophen 10/325mg tab PO PRN (18:25)
[2018-05-30] MEDS ORDERED: normal saline 1000ml 1,000 ML IV SCH (18:29)
[2018-05-30] MEDS ORDERED: magnesium 4gm in 100ml NS 100 ML IV PRN (18:30)
[2018-05-30] MEDS ORDERED: magnesium 1gm/100ml D5W IVPB 100 ML IV PRN (18:30)
[2018-05-30] MEDS ORDERED: potassium Cl 20 mEq SR tablet PO PRN ×2 (18:30)
[2018-05-30] MEDS ORDERED: magnesium Cl slow-release 64mg tablet PO PRN (18:30)
[2018-05-30] MEDS ORDERED: acetaminophen 325mg tablet PO PRN ×2 (18:30)
[2018-05-30] MEDS ORDERED: docusate sod 100mg capsule PO PRN (18:30)
[2018-05-30] MEDS ORDERED: mag hydrox/Alum hydrox/simeth 30ml oral suspension PO PRN (18:30)
[2018-05-30] MEDS ORDERED: potassium Cl 40MEQ/NS 500ml 500 ML IV PRN ×2 (18:30)
[2018-05-30] MEDS ORDERED: ondansetron/PF 4mg/2ml inj IV PRN (18:30)
[2018-05-30] MEDS ORDERED: albuterol 2.5 MG/3 ML nebule NEB SCH (20:00)
[2018-05-30] MEDS ORDERED: temazepam 15mg capsule PO PRN (21:00)
[2018-05-30 21:10] VITALS: BP 105/67
[2018-05-31] VITALS: BP 130/70
[2018-05-31] MEDS: HYDROcodone/acetaminophen 10/325mg tab PO PRN ×3 (00:10→19:59)
[2018-05-31] MEDS: pantoprazole 40MG/NS 100ML BAG 100 ML IV SCH ×5 (02:05→21:22)
[2018-05-31 05:23] LABS: BASOPHILS % (AUTO) 0.7 % (0-1); EOSINOPHILS # (AUTO) 0.5 X10'3 (0-0.9); EOSINOPHILS % (AUTO) 7.4 % (0-6); HEMATOCRIT 28.9 % (42.0-52.0); LYMPHOCYTES # (AUTO) 0.7 X10'3 (1.1-4.8); LYMPHOCYTES % (AUTO) 9.5 % (21-51); MEAN CORPUSCULAR HEMOGLOBIN 26.9 PG (27.0-31.0); MEAN CORPUSCULAR VOLUME 86.8 FL (78-98); MEAN PLATELET VOLUME 6.1 FL (7.4-10.4); MONOCYTES # (AUTO) 1.3 X10'3 (0-0.9); MONOCYTES % (AUTO) 18.3 % (2-12); NEUTROPHILS # (AUTO) 4.6 X10'3 (1.8-7.7); NEUTROPHILS % (AUTO) 64.1 % (42-75); PLATELET COUNT 352 X10'3 (140-440); RED BLOOD COUNT 3.33 X10'6 (4.70-6.10); RED CELL DISTRIBUTION WIDTH 23.5 % (11.5-14.5); WHITE BLOOD COUNT 7.2 X10'3 (4.5-11.0)
[2018-05-31 05:38] LABS: INR 1.2 INR; PROTHROMBIN TIME 11.6 SECONDS (9.0-12.0)
[2018-05-31 05:40] LABS: ALANINE AMINOTRANSFERASE 14 U/L (12-78); ALBUMIN 2.6 G/DL (3.4-5.0); ALBUMIN/GLOBULIN RATIO 0.8 (1.1-1.5); ALKALINE PHOSPHATASE 97 IU/L (46-116); ANION GAP 3 (8-16); ASPARTATE AMINO TRANSFERASE 16 U/L (10-37); BILIRUBIN,TOTAL 0.8 MG/DL (0.1-1.0); BLOOD UREA NITROGEN 45 MG/DL (7-18); BUN/CREATININE RATIO 32.1 (5.4-32.0); CALCIUM 8.5 MG/DL (8.5-10.1); CHLORIDE 102 MMOL/L (99-107); GLUCOSE 105 MG/DL (70-104); POTASSIUM 4.3 MMOL/L (3.5-5.1); SODIUM 142 MMOL/L (135-145); TOTAL CARBON DIOXIDE 37.3 MMOL/L (24-32); eGFR 49 ML/MIN
[2018-05-31 06:42] LABS: ANISOCYTOSIS 3+; PLATELET ESTIMATE NORMAL
[2018-05-31 06:43] LABS: HYPOCHROMASIA 1+; MICROCYTOSIS 1+
[2018-05-31 07:00] VITALS: BP 106/67
[2018-05-31] MEDS: K and/or MAG REPLACEMENT MC SCH (08:00)
[2018-05-31] MEDS: BUPRENORPHINE 2 MG SL SCH (08:00)
[2018-05-31] MEDS: gabapentin 300mg capsule PO SCH (08:06)
[2018-05-31] MEDS: bumetanide 1mg tablet PO SCH (08:58)
[2018-05-31 11:38] LABS: BASOPHILS % (AUTO) 0.4 % (0-1); EOSINOPHILS # (AUTO) 0.5 X10'3 (0-0.9); EOSINOPHILS % (AUTO) 5.5 % (0-6); HEMOGLOBIN 9.3 g/dl (14.0-17.9); LYMPHOCYTES # (AUTO) 0.6 X10'3 (1.1-4.8); LYMPHOCYTES % (AUTO) 7.1 % (21-51); MEAN CORPUSCULAR HEMOGLOBIN 26.9 PG (27.0-31.0); MEAN CORPUSCULAR VOLUME 86.8 FL (78-98); MEAN PLATELET VOLUME 6.4 FL (7.4-10.4); MONOCYTES # (AUTO) 1.3 X10'3 (0-0.9); NEUTROPHILS # (AUTO) 6.1 X10'3 (1.8-7.7); PLATELET COUNT 373 X10'3 (140-440); RED BLOOD COUNT 3.46 X10'6 (4.70-6.10); WHITE BLOOD COUNT 8.5 X10'3 (4.5-11.0)
[2018-05-31 12:06] VITALS: BP 113/54
[2018-05-31 12:34] LABS: TOTAL CELLS COUNTED 100
[2018-05-31 12:35] LABS: ANISOCYTOSIS 3+; ELLIPTOCYTES 1+; HYPOCHROMASIA 1+; PLATELET ESTIMATE NORMAL; POLYCHROMASIA 1+; TARGET CELLS FEW
[2018-05-31 19:00] VITALS: BP 122/73
[2018-05-31 19:20] VITALS: BP 122/73
[2018-05-31] MEDS: lisinopril 5mg tablet PO SCH (19:58)
[2018-05-31] MEDS: carVEDilol 3.125mg tablet PO SCH (21:21)
[2018-06-01] VITALS: BP 103/58
[2018-06-01] MEDS: HYDROcodone/acetaminophen 10/325mg tab PO PRN ×5 (00:07→21:27)
[2018-06-01] MEDS: pantoprazole 40MG/NS 100ML BAG 100 ML IV SCH ×5 (03:41→21:21)
[2018-06-01 06:08] LABS: BASOPHILS # (AUTO) 0.1 X10'3 (0-0.2); BASOPHILS % (AUTO) 0.7 % (0-1); EOSINOPHILS # (AUTO) 0.4 X10'3 (0-0.9); HEMATOCRIT 26.2 % (42.0-52.0); HEMOGLOBIN 8.1 g/dl (14.0-17.9); LYMPHOCYTES # (AUTO) 0.6 X10'3 (1.1-4.8); LYMPHOCYTES % (AUTO) 8.3 % (21-51); MEAN CORPUSCULAR HEMOGLOBIN 26.8 PG (27.0-31.0); MEAN CORPUSCULAR HGB CONC 31.1 % (33.0-36.5); MEAN CORPUSCULAR VOLUME 86.3 FL (78-98); MEAN PLATELET VOLUME 6.2 FL (7.4-10.4); MONOCYTES # (AUTO) 1.2 X10'3 (0-0.9); NEUTROPHILS # (AUTO) 4.9 X10'3 (1.8-7.7); PLATELET COUNT 330 X10'3 (140-440); RED BLOOD COUNT 3.04 X10'6 (4.70-6.10); RED CELL DISTRIBUTION WIDTH 23.6 % (11.5-14.5); WHITE BLOOD COUNT 7.2 X10'3 (4.5-11.0)
[2018-06-01 06:12] LABS: INR 1.2 INR
[2018-06-01 06:25] LABS: ALANINE AMINOTRANSFERASE 13 U/L (12-78); ALBUMIN 2.4 G/DL (3.4-5.0); ALBUMIN/GLOBULIN RATIO 0.8 (1.1-1.5); ALKALINE PHOSPHATASE 99 IU/L (46-116); ANION GAP 4 (8-16); ASPARTATE AMINO TRANSFERASE 14 U/L (10-37); BILIRUBIN,TOTAL 0.8 MG/DL (0.1-1.0); BLOOD UREA NITROGEN 30 MG/DL (7-18); CALCIUM 8.3 MG/DL (8.5-10.1); CHLORIDE 102 MMOL/L (99-107); CREATININE 1.07 MG/DL (0.60-1.10); GLUCOSE 97 MG/DL (70-104); MAGNESIUM 1.7 MG/DL (1.5-2.4); POTASSIUM 4.1 MMOL/L (3.5-5.1); SODIUM 142 MMOL/L (135-145); TOTAL CARBON DIOXIDE 36.1 MMOL/L (24-32); TOTAL PROTEIN 5.6 G/DL (6.4-8.2); eGFR 66 ML/MIN
[2018-06-01 07:10] VITALS: BP 99/58
[2018-06-01 07:19] LABS: TOTAL CELLS COUNTED 100
[2018-06-01 07:20] LABS: ANISOCYTOSIS 3+; PLATELET ESTIMATE NORMAL
[2018-06-01 07:21] LABS: ELLIPTOCYTES 1+; HYPOCHROMASIA 1+; POLYCHROMASIA 1+; SCHISTOCYTES FEW; TARGET CELLS FEW; TEAR DROP CELLS FEW
[2018-06-01] MEDS: gabapentin 300mg capsule PO SCH (08:00)
[2018-06-01] MEDS: K and/or MAG REPLACEMENT MC SCH (08:00)
[2018-06-01] MEDS: BUPRENORPHINE 2 MG SL SCH (08:00)
[2018-06-01] MEDS: bumetanide 1mg tablet PO SCH (09:28)
[2018-06-01] MEDS: lisinopril 5mg tablet PO SCH (09:35)
[2018-06-01] MEDS: carVEDilol 3.125mg tablet PO SCH ×2 (09:37→20:10)
[2018-06-01 19:00] VITALS: BP 105/61
[2018-06-01 23:00] VITALS: BP 101/51
[2018-06-02] MEDS: albuterol 2.5 MG/3 ML nebule NEB PRN (00:04)
[2018-06-02] MEDS: HYDROcodone/acetaminophen 10/325mg tab PO PRN ×5 (01:47→23:53)
[2018-06-02] MEDS: pantoprazole 40MG/NS 100ML BAG 100 ML IV SCH ×4 (02:52→16:00)
[2018-06-02 05:22] LABS: BASOPHILS % (AUTO) 0.4 % (0-1); EOSINOPHILS # (AUTO) 0.5 X10'3 (0-0.9); EOSINOPHILS % (AUTO) 5.8 % (0-6); HEMATOCRIT 26.7 % (42.0-52.0); HEMOGLOBIN 8.5 g/dl (14.0-17.9); LYMPHOCYTES # (AUTO) 0.7 X10'3 (1.1-4.8); LYMPHOCYTES % (AUTO) 8.3 % (21-51); MEAN CORPUSCULAR HEMOGLOBIN 27.1 PG (27.0-31.0); MEAN CORPUSCULAR HGB CONC 31.7 % (33.0-36.5); MEAN CORPUSCULAR VOLUME 85.5 FL (78-98); MEAN PLATELET VOLUME 6.2 FL (7.4-10.4); MONOCYTES # (AUTO) 1.4 X10'3 (0-0.9); MONOCYTES % (AUTO) 16.8 % (2-12); NEUTROPHILS # (AUTO) 5.5 X10'3 (1.8-7.7); NEUTROPHILS % (AUTO) 68.7 % (42-75); PLATELET COUNT 342 X10'3 (140-440); RED BLOOD COUNT 3.12 X10'6 (4.70-6.10); RED CELL DISTRIBUTION WIDTH 23.1 % (11.5-14.5); WHITE BLOOD COUNT 8.1 X10'3 (4.5-11.0)
[2018-06-02 05:29] LABS: INR 1.2 INR; PROTHROMBIN TIME 12.3 SECONDS (9.0-12.0)
[2018-06-02 05:37] LABS: ALANINE AMINOTRANSFERASE 12 U/L (12-78); ALBUMIN 2.3 G/DL (3.4-5.0); ALBUMIN/GLOBULIN RATIO 0.7 (1.1-1.5); ALKALINE PHOSPHATASE 101 IU/L (46-116); ANION GAP 3 (8-16); ASPARTATE AMINO TRANSFERASE 15 U/L (10-37); BILIRUBIN,TOTAL 0.9 MG/DL (0.1-1.0); BLOOD UREA NITROGEN 23 MG/DL (7-18); BUN/CREATININE RATIO 22.5 (5.4-32.0); CALCIUM 8.3 MG/DL (8.5-10.1); CHLORIDE 100 MMOL/L (99-107); CREATININE 1.02 MG/DL (0.60-1.10); GLUCOSE 94 MG/DL (70-104); MAGNESIUM 1.7 MG/DL (1.5-2.4); POTASSIUM 3.8 MMOL/L (3.5-5.1); SODIUM 140 MMOL/L (135-145); TOTAL CARBON DIOXIDE 37.3 MMOL/L (24-32); TOTAL PROTEIN 5.6 G/DL (6.4-8.2); eGFR 70 ML/MIN
[2018-06-02 06:54] LABS: PLATELET ESTIMATE NORMAL
[2018-06-02 06:55] LABS: ANISOCYTOSIS 3+; HYPOCHROMASIA 1+; MICROCYTOSIS 1+
[2018-06-02 06:56] LABS: SCHISTOCYTES FEW
[2018-06-02 07:00] VITALS: BP 112/61
[2018-06-02] MEDS: BUPRENORPHINE 2 MG SL SCH (08:00)
[2018-06-02] MEDS: K and/or MAG REPLACEMENT MC SCH (08:00)
[2018-06-02] MEDS: lisinopril 5mg tablet PO SCH (08:00)
[2018-06-02] MEDS: gabapentin 300mg capsule PO SCH (08:00)
[2018-06-02] MEDS: bumetanide 1mg tablet PO SCH (09:19)
[2018-06-02] MEDS: carVEDilol 3.125mg tablet PO SCH ×2 (09:20→19:54)
[2018-06-02 11:15] VITALS: BP 93/51
[2018-06-02 18:50] VITALS: BP 103/60
[2018-06-02 23:00] VITALS: BP 113/81
[2018-06-03 05:25] LABS: BASOPHILS # (AUTO) 0.1 X10'3 (0-0.2); BASOPHILS % (AUTO) 0.8 % (0-1); EOSINOPHILS # (AUTO) 0.7 X10'3 (0-0.9); EOSINOPHILS % (AUTO) 7.3 % (0-6); HEMATOCRIT 29.7 % (42.0-52.0); HEMOGLOBIN 9.1 g/dl (14.0-17.9); LYMPHOCYTES # (AUTO) 0.8 X10'3 (1.1-4.8); LYMPHOCYTES % (AUTO) 8.6 % (21-51); MEAN CORPUSCULAR HEMOGLOBIN 26.2 PG (27.0-31.0); MEAN CORPUSCULAR HGB CONC 30.5 % (33.0-36.5); MEAN CORPUSCULAR VOLUME 85.9 FL (78-98); MEAN PLATELET VOLUME 6.1 FL (7.4-10.4); MONOCYTES # (AUTO) 1.6 X10'3 (0-0.9); MONOCYTES % (AUTO) 17.4 % (2-12); NEUTROPHILS # (AUTO) 5.9 X10'3 (1.8-7.7); NEUTROPHILS % (AUTO) 65.9 % (42-75); PLATELET COUNT 362 X10'3 (140-440); RED BLOOD COUNT 3.45 X10'6 (4.70-6.10); RED CELL DISTRIBUTION WIDTH 22.8 % (11.5-14.5)
[2018-06-03] MEDS: HYDROcodone/acetaminophen 10/325mg tab PO PRN ×2 (05:42→12:27)
[2018-06-03 05:54] LABS: INR 1.1 INR; PROTHROMBIN TIME 11.4 SECONDS (9.0-12.0)
[2018-06-03 06:00] LABS: ALANINE AMINOTRANSFERASE 13 U/L (12-78); ALBUMIN 2.7 G/DL (3.4-5.0); ALBUMIN/GLOBULIN RATIO 0.8 (1.1-1.5); ALKALINE PHOSPHATASE 110 IU/L (46-116); ANION GAP 3 (8-16); ASPARTATE AMINO TRANSFERASE 15 U/L (10-37); BILIRUBIN,TOTAL 0.8 MG/DL (0.1-1.0); BLOOD UREA NITROGEN 20 MG/DL (7-18); BUN/CREATININE RATIO 17.7 (5.4-32.0); CALCIUM 8.4 MG/DL (8.5-10.1); CHLORIDE 99 MMOL/L (99-107); CREATININE 1.13 MG/DL (0.60-1.10); GLUCOSE 90 MG/DL (70-104); MAGNESIUM 1.9 MG/DL (1.5-2.4); POTASSIUM 3.9 MMOL/L (3.5-5.1); SODIUM 140 MMOL/L (135-145); TOTAL CARBON DIOXIDE 38.2 MMOL/L (24-32); TOTAL PROTEIN 6.3 G/DL (6.4-8.2); eGFR 62 ML/MIN
[2018-06-03 06:16] LABS: ANISOCYTOSIS 3+; PLATELET ESTIMATE NORMAL
[2018-06-03 06:17] LABS: HYPOCHROMASIA 1+; POLYCHROMASIA FEW
[2018-06-03 07:00] VITALS: BP 118/63
[2018-06-03] MEDS: gabapentin 300mg capsule PO SCH (08:00)
[2018-06-03] MEDS: BUPRENORPHINE 2 MG SL SCH (08:00)
[2018-06-03] MEDS: K and/or MAG REPLACEMENT MC SCH (08:00)
[2018-06-03] MEDS ORDERED: pantoprazole 40mg Tablet.DR PO SCH (08:00)
[2018-06-03] MEDS: bumetanide 1mg tablet PO SCH (08:11)
[2018-06-03] MEDS: lisinopril 5mg tablet PO SCH (08:11)
[2018-06-03] MEDS: carVEDilol 3.125mg tablet PO SCH (08:12)
[2018-06-03] MEDS: albuterol 2.5 MG/3 ML nebule NEB PRN (09:56)
[2018-06-03 11:30] VITALS: BP 95/56
[2018-06-05 10:30] LABS: OCCULT BLOOD STOOL POSITIVE (Neg)
== END 2018-06-03 14:29 | DRG 314 ==
LOC: ER 14:29 → ED HOLD 18:29 → SUR 3N 21:09
PROVIDERS: ADMIT Internal Medicine; ATTEND Family Medicine
DX: I95.9 Hypotension, unspecified (principal); N17.0 Acute kidney failure with tubular necrosis; I50.23 Acute on chronic systolic (congestive) heart failure; K92.2 Gastrointestinal hemorrhage, unspecified; J96.10 Chronic respiratory failure, unspecified whether with hypoxia or hypercapnia; I13.0 Hypertensive heart and chronic kidney disease with heart failure and stage 1 through stage 4 chronic kidney disease, or unspecified chronic kidney disease; G89.4 Chronic pain syndrome; I25.10 Atherosclerotic heart disease of native coronary artery without angina pectoris; I48.91 Unspecified atrial fibrillation; J43.9 Emphysema, unspecified; N18.9 Chronic kidney disease, unspecified; T44.7X5A Adverse effect of beta-adrenoreceptor antagonists, initial encounter; K21.9 Gastro-esophageal reflux disease without esophagitis; M54.9 Dorsalgia, unspecified; Z96.641 Presence of right artificial hip joint; S82.402D Unspecified fracture of shaft of left fibula, subsequent encounter for closed fracture with routine healing; S82.401D Unspecified fracture of shaft of right fibula, subsequent encounter for closed fracture with routine healing; I25.2 Old myocardial infarction; Z95.0 Presence of cardiac pacemaker; Z90.49 Acquired absence of other specified parts of digestive tract; Z99.81 Dependence on supplemental oxygen; Z79.899 Other long term (current) drug therapy; Z79.82 Long term (current) use of aspirin; Z85.9 Personal history of malignant neoplasm, unspecified; Z87.11 Personal history of peptic ulcer disease; Y92.89 Other specified places as the place of occurrence of the external cause; Y93.89 Activity, other specified; Y99.8 Other external cause status
CPT/HCPCS: 36415; 71045; 74176; 80053; 81003; 82272; 83605; 83735; 83880; 84145; 85025; 85610; 85730; 86885; 86900; 86901; 87040; 87070; 93005; 94640; 94760; 96374; 96375; 97116; 97162; 97530; 99285; C9113; G0378; J7030

== ENCOUNTER 2018-06-19 11:09 | Outpatient (CLI) | payer MEDICARE, BC ==
[2018-06-19 11:05] VITALS: BP 109/52
[~2018-06-19 11:09] MED LIST changes: -BUPR2TAB11 SL; -GABA-532 PO; -LISI40TA4 PO
== END 2018-06-19 11:46 | disposition home or self-care (01) ==
LOC: ORTHO 11:09
PROVIDERS: ATTEND Nurse Practitioner Family
DX: S82.832A Other fracture of upper and lower end of left fibula, initial encounter for closed fracture (principal); S82.831A Other fracture of upper and lower end of right fibula, initial encounter for closed fracture; M85.872 Other specified disorders of bone density and structure, left ankle and foot; I48.91 Unspecified atrial fibrillation; I25.10 Atherosclerotic heart disease of native coronary artery without angina pectoris; I50.9 Heart failure, unspecified; I11.0 Hypertensive heart disease with heart failure; I25.2 Old myocardial infarction; J43.9 Emphysema, unspecified; G89.29 Other chronic pain; Z87.891 Personal history of nicotine dependence; Z79.82 Long term (current) use of aspirin; W19.XXXA Unspecified fall, initial encounter; Y93.89 Activity, other specified; Y92.89 Other specified places as the place of occurrence of the external cause; Y99.8 Other external cause status
CPT/HCPCS: 73610; 99213

== ENCOUNTER 2018-07-10 11:51 | Outpatient (CLI) | payer MEDICARE, BC ==
[2018-07-10 11:37] VITALS: BP 120/89
== END 2018-07-10 12:52 | disposition home or self-care (01) ==
LOC: ORTHO 11:51
PROVIDERS: ATTEND Nurse Practitioner Family
DX: S82.831G Other fracture of upper and lower end of right fibula, subsequent encounter for closed fracture with delayed healing (principal); S82.832G Other fracture of upper and lower end of left fibula, subsequent encounter for closed fracture with delayed healing; M19.072 Primary osteoarthritis, left ankle and foot; M19.071 Primary osteoarthritis, right ankle and foot; I48.91 Unspecified atrial fibrillation; I25.10 Atherosclerotic heart disease of native coronary artery without angina pectoris; I11.0 Hypertensive heart disease with heart failure; I50.9 Heart failure, unspecified; I25.2 Old myocardial infarction; J43.9 Emphysema, unspecified; G89.29 Other chronic pain; Z72.89 Other problems related to lifestyle; Z87.891 Personal history of nicotine dependence; Z79.82 Long term (current) use of aspirin; X58.XXXD Exposure to other specified factors, subsequent encounter
CPT/HCPCS: 73610; 99213

== ENCOUNTER 2018-08-04 15:43 | Emergency (ER) | payer MEDICARE, BC ==
[~2018-08-04] VITALS: Ht 182.9 cm; Wt 102.2 kg
[2018-08-04] MEDS ORDERED: morphine 4 MG/ML inj SYRINge IV PRN (16:05)
[2018-08-04] MEDS ORDERED: normal saline 1000ML IV soln IVB ONE (16:05)
[2018-08-04] MEDS ORDERED: ondansetron/PF 4mg/2ml inj IV ONE (16:05)
--- NOTE | 2018-08-04 16:52 | NUR ---
PATIENT HAS CHRONIC LOW BACK PAIN FOR WHICH HE TAKES 4-8 NORCO FROM [facility] PMD. PATIENT STATES THAT HE LAST GHASD A NORMAL BUT RIBBON LIKE BM 4 DAYS AGO SOFT BROWN AND HAS HAD SMALL AMOUNT OF DIARHHEA SINCE THEN INCLUDING TODAY. PT WQITH LEFT QUADRANT PAIN "LIKE IM GONNA BURST" PT HAD SBO SURGERY 04/[address] WISE FOR A PERFED VISCOUS PATIENT CURRENTLY CHARO LAX DAILY AND A STOOL SOFTENER AND MOM DAILY AND PRUNE JUICE
[2018-08-04 16:56] LABS: BASOPHILS % (AUTO) 0.6 % (0-1); EOSINOPHILS # (AUTO) 0.2 X10'3 (0-0.9); HEMATOCRIT 32.3 % (42.0-52.0); HEMOGLOBIN 9.9 g/dl (14.0-17.9); LYMPHOCYTES # (AUTO) 1.1 X10'3 (1.1-4.8); LYMPHOCYTES % (AUTO) 13.2 % (21-51); MEAN CORPUSCULAR HEMOGLOBIN 22.9 PG (27.0-31.0); MEAN CORPUSCULAR HGB CONC 30.5 % (33.0-36.5); MEAN PLATELET VOLUME 6.3 FL (7.4-10.4); MONOCYTES # (AUTO) 1.1 X10'3 (0-0.9); MONOCYTES % (AUTO) 13.6 % (2-12); NEUTROPHILS # (AUTO) 5.8 X10'3 (1.8-7.7); NEUTROPHILS % (AUTO) 70.6 % (42-75); PLATELET COUNT 260 X10'3 (140-440); RED BLOOD COUNT 4.31 X10'6 (4.70-6.10); RED CELL DISTRIBUTION WIDTH 18.8 % (11.5-14.5); WHITE BLOOD COUNT 8.2 X10'3 (4.5-11.0)
[2018-08-04 16:57] LABS: ALANINE AMINOTRANSFERASE 21 U/L (12-78); ALBUMIN 4.1 G/DL (3.4-5.0); ALBUMIN/GLOBULIN RATIO 1.1 (1.1-1.5); ALKALINE PHOSPHATASE 90 IU/L (46-116); ANION GAP 8 (8-16); ASPARTATE AMINO TRANSFERASE 22 U/L (10-37); BILIRUBIN,TOTAL 0.7 MG/DL (0.1-1.0); BLOOD UREA NITROGEN 18 MG/DL (7-18); BUN/CREATININE RATIO 19.6 (5.4-32.0); CALCIUM 9.6 MG/DL (8.5-10.1); CHLORIDE 97 MMOL/L (99-107); CREATININE 0.92 MG/DL (0.60-1.10); GLUCOSE 94 MG/DL (70-104); POTASSIUM 4.3 MMOL/L (3.5-5.1); SODIUM 137 MMOL/L (135-145); TOTAL CARBON DIOXIDE 31.9 MMOL/L (24-32); TOTAL PROTEIN 7.7 G/DL (6.4-8.2); eGFR 79 ML/MIN
--- NOTE | 2018-08-04 16:58 | NUR ---
TO CT SCAN
[2018-08-04 17:13] LABS: LIPASE 76 U/L (73-393)
[2018-08-04 17:16] LABS: CLARITY,URINE CLEAR (Clear); COLOR,URINE STRAW (Yellow); GLUCOSE, URINE NEGATIVE (Neg); KETONES,URINE NEGATIVE (Neg); LEUKOCYTE ESTERASE ,URINE NEGATIVE (Neg); NITRITES, URINE NEGATIVE (Neg); OCCULT BLOOD,URINE NEGATIVE (Neg); PH,URINE 7.5 (4.8-8.0); PROTEIN,URINE NEGATIVE (Neg); UROBILINOGEN,URINE 0.2 E.U/dL (0.2-1.0)
--- NOTE | 2018-08-04 17:18 | NUR ---
BACK FROM CT
[2018-08-04 17:23] LABS: UA COLLECTION TYPE CLN CATCH MIDSTREAM
[2018-08-04 18:12] VITALS: BP 126/79
== END 2018-08-04 18:13 | disposition home or self-care (01) ==
LOC: ER 15:43
DX: R10.32 Left lower quadrant pain (principal); I48.91 Unspecified atrial fibrillation; I25.10 Atherosclerotic heart disease of native coronary artery without angina pectoris; I25.2 Old myocardial infarction; J44.9 Chronic obstructive pulmonary disease, unspecified; G89.29 Other chronic pain; K21.9 Gastro-esophageal reflux disease without esophagitis; I11.0 Hypertensive heart disease with heart failure; I50.9 Heart failure, unspecified; Z79.82 Long term (current) use of aspirin; Z79.899 Other long term (current) drug therapy; Z87.11 Personal history of peptic ulcer disease; Z90.49 Acquired absence of other specified parts of digestive tract; Z95.0 Presence of cardiac pacemaker
CPT/HCPCS: 36415; 74176; 80053; 81003; 83690; 85025; 96374; 96375; 99284; J2270; J2405; J7030

== ENCOUNTER 2018-08-13 14:41 | Outpatient (CLI) | payer MEDICARE, BC ==
[2018-08-13 14:39] VITALS: BP 112/67
== END 2018-08-13 15:22 | disposition home or self-care (01) ==
LOC: ORTHO 14:41
PROVIDERS: ATTEND Nurse Practitioner Family
DX: S82.831K Other fracture of upper and lower end of right fibula, subsequent encounter for closed fracture with nonunion (principal); S82.832G Other fracture of upper and lower end of left fibula, subsequent encounter for closed fracture with delayed healing; M25.471 Effusion, right ankle; I11.0 Hypertensive heart disease with heart failure; I50.9 Heart failure, unspecified; J44.9 Chronic obstructive pulmonary disease, unspecified; Z79.82 Long term (current) use of aspirin; X58.XXXD Exposure to other specified factors, subsequent encounter
CPT/HCPCS: 73610; 99213

== ENCOUNTER 2018-08-16 11:24 | Emergency (ER) | payer MEDICARE, BC ==
[~2018-08-16] VITALS: Ht 182.9 cm; Wt 100.0 kg
[2018-08-16 11:30] VITALS: BP 117/58
[2018-08-16] MEDS ORDERED: LORazepam 1 MG tablet PO ONE (15:15)
[2018-08-16] MEDS ORDERED: LORazepam 0.5 MG tablet PO ONE (15:25)
--- NOTE | 2018-08-16 15:27 | NUR ---
PHARMACY TO CHANGE ORDERS. ATIVAN 1MG MG OUT OF STOCK.
== END 2018-08-16 15:40 | disposition home or self-care (01) ==
LOC: ER 11:25
DX: F41.9 Anxiety disorder, unspecified (principal); I11.0 Hypertensive heart disease with heart failure; I50.9 Heart failure, unspecified; I25.10 Atherosclerotic heart disease of native coronary artery without angina pectoris; I48.91 Unspecified atrial fibrillation; J44.9 Chronic obstructive pulmonary disease, unspecified; K21.9 Gastro-esophageal reflux disease without esophagitis; G89.29 Other chronic pain; M54.9 Dorsalgia, unspecified; Z95.0 Presence of cardiac pacemaker; Z79.82 Long term (current) use of aspirin
CPT/HCPCS: 99284

== ENCOUNTER 2018-08-26 15:18 | Outpatient (CLI) | payer MEDICARE, BC ==
[2018-09-06] MEDS ORDERED: FURO80TA87 PO (14:54)
[2018-09-06] MEDS ORDERED: CARV-50 PO (14:58)
[2018-09-06] MEDS ORDERED: QUET50TA22 PO (15:01)
[2018-09-06] MEDS ORDERED: HYDR-3965 PO (15:01)
[2018-09-06] MEDS ORDERED: QUET25TA PO (15:01)
== END 2018-08-26 16:02 | disposition home or self-care (01) ==
LOC: ORTHO 15:18
PROVIDERS: ATTEND Nurse Practitioner Family
DX: S82.831K Other fracture of upper and lower end of right fibula, subsequent encounter for closed fracture with nonunion (principal); X58.XXXD Exposure to other specified factors, subsequent encounter
CPT/HCPCS: 73610; 99213

== ENCOUNTER 2018-09-06 10:56 | Inpatient (IN) | payer MEDICARE, BC | END 2018-09-14 16:09 | disposition home or self-care (01) | LOC: ER 10:56 → ED HOLD 15:21 → PCU 3S 22:20 | DX: I27.20 Pulmonary hypertension, unspecified (principal); I50.21 Acute systolic (congestive) heart failure; J96.11 Chronic respiratory failure with hypoxia; N17.9 Acute kidney failure, unspecified; J44.1 Chronic obstructive pulmonary disease with (acute) exacerbation; Z68.43 Body mass index [BMI] 50.0-59.9, adult; I26.09 Other pulmonary embolism with acute cor pulmonale; I25.10 Atherosclerotic heart disease of native coronary artery without angina pectoris; E66.01 Morbid (severe) obesity due to excess calories ==

== ENCOUNTER 2018-09-29 12:00 | Inpatient (IN) | payer MEDICARE, BC ==
[~2018-09-29] VITALS: Ht 177.8 cm; Wt 95.6 kg
[~2018-09-29 12:00] MED LIST changes: -ALBU18HF2 IH; -ASPI-1071 PO; +ASPI81TA52 PO; +ATI0.5T PO; -BUME1TAB4 PO; -DIPH50CA3 PO; +FURO40TA4 PO; +LEVO750T46 PO; +LISI2.5T2 PO; -NORCO10T PO; -PANT-47 PO; +PRED20TA PO; +QUET25TA PO; +QUET50TA22 PO; +SERT25TA5 PO; -TIZA2TAB4 PO
[2018-09-29] MEDS ORDERED: furosemide 10 MG/1 ML 10ml inj IV ONE (12:10)
[2018-09-29 13:01] LABS: BASOPHILS # (AUTO) 0.1 X10'3 (0-0.2); BASOPHILS % (AUTO) 0.8 % (0-1); EOSINOPHILS # (AUTO) 0.1 X10'3 (0-0.9); EOSINOPHILS % (AUTO) 1.7 % (0-6); HEMATOCRIT 31.7 % (42.0-52.0); HEMOGLOBIN 9.9 g/dl (14.0-17.9); LYMPHOCYTES # (AUTO) 2.1 X10'3 (1.1-4.8); LYMPHOCYTES % (AUTO) 26.4 % (21-51); MEAN CORPUSCULAR HEMOGLOBIN 23.2 PG (27.0-31.0); MEAN CORPUSCULAR HGB CONC 31.3 g/dL (33.0-36.5); MEAN CORPUSCULAR VOLUME 74.2 FL (78-98); MEAN PLATELET VOLUME 7.2 FL (7.4-10.4); MONOCYTES # (AUTO) 0.9 X10'3 (0-0.9); MONOCYTES % (AUTO) 11.1 % (2-12); NEUTROPHILS # (AUTO) 4.8 X10'3 (1.8-7.7); PLATELET COUNT 136 X10'3 (140-440); RED BLOOD COUNT 4.28 X10'6 (4.70-6.10); RED CELL DISTRIBUTION WIDTH 26.8 % (11.5-14.5)
[2018-09-29 13:06] LABS: INR 1.3 INR; PARTIAL THROMBOPLASTIN TIME 36 SECONDS (22-32); PROTHROMBIN TIME 13.1 SECONDS (9.0-12.0)
[2018-09-29 13:07] LABS: ALANINE AMINOTRANSFERASE 22 U/L (12-78); ALBUMIN 3.3 G/DL (3.4-5.0); ALBUMIN/GLOBULIN RATIO 1.2 (1.1-1.5); ALKALINE PHOSPHATASE 87 IU/L (46-116); ANION GAP 5 (8-16); ASPARTATE AMINO TRANSFERASE 20 U/L (10-37); BILIRUBIN,TOTAL 1.1 MG/DL (0.1-1.0); BLOOD UREA NITROGEN 43 MG/DL (7-18); BUN/CREATININE RATIO 32.3 (5.4-32.0); CHLORIDE 103 MMOL/L (99-107); CREATININE 1.33 MG/DL (0.60-1.10); GLUCOSE 113 MG/DL (70-104); POTASSIUM 4.7 MMOL/L (3.5-5.1); SODIUM 138 MMOL/L (135-145); TOTAL CARBON DIOXIDE 30.3 MMOL/L (24-32); TOTAL PROTEIN 6.1 G/DL (6.4-8.2); eGFR 52 ML/MIN
[2018-09-29 14:45] LABS: ABG BASE EXCESS 2.2 mmol/L (-2.0-3.0); ABG HCO3 28.2 mmol/L (22.0-26.0); ABG OXYGEN SATURATION 93.9 % (95-98); ABG PCO2 (T) 50.2 mmHg (35.0-48.0); ABG PH (T) 7.367 (7.350-7.450); ABG PO2 (T) 77.7 mmHg (83-108); FCOHb 1.5 % (0.5-1.5); FLOW 2 L/min; FMetHb 0.3 % (0.3-1.12); FO2Hb 92.2 % (94-100)
--- NOTE | 2018-09-29 15:00 | NUR ---
Patient ambulated with multi purpose machine operator. patient used walker. SPO2 dropped to 88% RA with ambulation. Dr. Carmona informed.
[2018-09-29] MEDS ORDERED: magnesium hydroxide 30ml (MOM) UD suspension PO PRN (15:30)
[2018-09-29] MEDS ORDERED: magnesium 4gm in 100ml NS 100 ML IV PRN (15:30)
[2018-09-29] MEDS ORDERED: acetaminophen 325mg tablet PO PRN (15:30)
[2018-09-29] MEDS ORDERED: mag hydrox/Alum hydrox/simeth 30ml oral suspension PO PRN (15:30)
[2018-09-29] MEDS ORDERED: potassium Cl 40MEQ/NS 500ml 500 ML IV PRN ×2 (15:30)
[2018-09-29] MEDS ORDERED: magnesium 2GM in 50ml NS 50 ML IV PRN (15:30)
[2018-09-29] MEDS ORDERED: potassium Cl 20 mEq SR tablet PO PRN ×2 (15:30)
[2018-09-29] MEDS ORDERED: morphine 4 MG/ML inj SYRINge IV PRN (15:30)
[2018-09-29] MEDS ORDERED: bisacodyl 10mg suppository rectal RC PRN (15:30)
[2018-09-29] MEDS ORDERED: ondansetron/PF 4mg/2ml inj IV PRN (15:30)
[2018-09-29] MEDS ORDERED: magnesium Cl slow-release 64mg tablet PO PRN (15:30)
--- NOTE | 2018-09-29 15:42 | NUR ---
Patient moved onto hospital bed.
[2018-09-29] MEDS: levoFLOXACIN-Levaquin 750MG/D5 150 ML IV SCH (15:50)
[2018-09-29] MEDS: pantoprazole 40mg Tablet.DR PO SCH (15:50)
[2018-09-29] MEDS: methylPREDNISolone sod succ 125mg/2ml vial IV SCH ×2 (15:50→19:46)
[2018-09-29] MEDS ORDERED: FURO40TA4 PO (16:47)
[2018-09-29] MEDS ORDERED: LISI2.5T2 PO (16:50)
[2018-09-29] MEDS ORDERED: LISI-600 PO (16:50)
[2018-09-29] MEDS ORDERED: LORA0.5T PO (16:52)
[2018-09-29] MEDS ORDERED: OMEP-50 PO (16:55)
[2018-09-29] MEDS ORDERED: HYDR-3973 PO (16:55)
[2018-09-29] MEDS ORDERED: ALBU18HF2 IH (16:57)
[2018-09-29] MEDS ORDERED: POTA20TA10 PO (16:58)
[2018-09-29] MEDS ORDERED: TIZA2TAB4 PO (16:59)
[2018-09-29] MEDS ORDERED: GABA-532 PO (17:00)
[2018-09-29] MEDS ORDERED: MULT-1085 PO (17:02)
[2018-09-29] MEDS ORDERED: gabapentin 300mg capsule PO PRN (17:15)
[2018-09-29] MEDS ORDERED: non-formulary drug (Albuterol Sulfate (Ventolin Hfa) 2 PUFFS) IH PRN (17:15)
[2018-09-29] MEDS ORDERED: LORazepam 0.5 MG tablet PO PRN (17:15)
[2018-09-29] MEDS ORDERED: TIZANIDINE HCL PO PRN (17:15)
[2018-09-29] MEDS ORDERED: albuterol 2.5 MG/3 ML nebule NEB PRN (17:20)
[2018-09-29] MEDS ORDERED: tizanidine 4mg tablet PO PRN (17:25)
--- NOTE | 2018-09-29 18:14 | NUR ---
called to give floor RN report, unable to take report at this time, explained it will be report from night RN.
[2018-09-29] MEDS: K and/or MAG REPLACEMENT MC SCH (18:18)
--- NOTE | 2018-09-29 18:38 | NUR ---
received report from Jonathan ENRIQUEZ, in ER.
--- NOTE | 2018-09-29 18:45 | NUR ---
pt arrived to unit from ER, transferred to 3013-A on hospital bed. pt A&O x4, in no distress at this time, all belongings accompanied pt and at bedside, call light placed in reach of pt and educated on use. will review orders and implement as necessary.
[2018-09-29 19:00] VITALS: BP 130/66
[2018-09-29] MEDS: heparin, porcine 5000 units/ml vial SQ SCH (19:45)
[2018-09-29] MEDS: HYDROcodone/acetaminophen 10/325mg tab PO PRN (19:45)
[2018-09-29] MEDS: carvedilol 6.25mg tablet PO SCH (19:46)
[2018-09-29] MEDS: docusate sod 100mg capsule PO SCH (19:46)
[2018-09-29] MEDS: furosemide 20 MG/2 ML vial IV SCH (19:46)
[2018-09-29] MEDS: ipratropium/albuterol 3ml nebule NEB SCH ×2 (19:48→23:21)
[2018-09-29 23:00] VITALS: BP 102/61
[2018-09-30 00:48] LABS: BASOPHILS % (AUTO) 0.8 % (0-1); EOSINOPHILS % (AUTO) 0 % (0-6); HEMATOCRIT 33.6 % (42.0-52.0); HEMOGLOBIN 10.3 g/dl (14.0-17.9); LYMPHOCYTES # (AUTO) 0.2 X10'3 (1.1-4.8); LYMPHOCYTES % (AUTO) 4.4 % (21-51); MEAN CORPUSCULAR HEMOGLOBIN 22.6 PG (27.0-31.0); MEAN CORPUSCULAR HGB CONC 30.5 g/dL (33.0-36.5); MEAN PLATELET VOLUME 8.3 FL (7.4-10.4); MONOCYTES # (AUTO) 0.1 X10'3 (0-0.9); MONOCYTES % (AUTO) 1.6 % (2-12); NEUTROPHILS # (AUTO) 5.2 X10'3 (1.8-7.7); NEUTROPHILS % (AUTO) 93.2 % (42-75); PLATELET COUNT 129 X10'3 (140-440); RED BLOOD COUNT 4.54 X10'6 (4.70-6.10); RED CELL DISTRIBUTION WIDTH 25.7 % (11.5-14.5); WHITE BLOOD COUNT 5.6 X10'3 (4.5-11.0)
[2018-09-30 01:00] LABS: ALBUMIN 3.1 G/DL (3.4-5.0); ANION GAP 6 (8-16); BLOOD UREA NITROGEN 36 MG/DL (7-18); BUN/CREATININE RATIO 24.5 (5.4-32.0); CALCIUM 8.3 MG/DL (8.5-10.1); CHLORIDE 101 MMOL/L (99-107); CREATININE 1.47 MG/DL (0.60-1.10); GLUCOSE 148 MG/DL (70-104); POTASSIUM 4.2 MMOL/L (3.5-5.1); SODIUM 139 MMOL/L (135-145); eGFR 46 ML/MIN
[2018-09-30 01:28] LABS: ANISOCYTOSIS 3+; ELLIPTOCYTES FEW; MICROCYTOSIS 1+; PLATELET ESTIMATE DECREASED; POLYCHROMASIA FEW; TARGET CELLS FEW
[2018-09-30 01:29] LABS: TEAR DROP CELLS FEW
[2018-09-30] MEDS: methylPREDNISolone sod succ 125mg/2ml vial IV SCH ×4 (02:08→19:14)
[2018-09-30 03:00] VITALS: BP 142/72
[2018-09-30] MEDS: ipratropium/albuterol 3ml nebule NEB SCH ×6 (03:10→22:59)
[2018-09-30] MEDS: HYDROcodone/acetaminophen 10/325mg tab PO PRN ×3 (03:25→19:16)
[2018-09-30 06:00] VITALS: BP 113/84
--- NOTE | 2018-09-30 06:34 | NUR ---
Patient in room PCU 3013. I have received report from ZOE Hernandez and had the opportunity to ask questions and assume patient care.
[2018-09-30] MEDS: heparin, porcine 5000 units/ml vial SQ SCH ×2 (07:13→19:15)
[2018-09-30] MEDS: furosemide 20 MG/2 ML vial IV SCH (07:13)
[2018-09-30] MEDS: potassium Cl 20 mEq SR tablet PO SCH (07:14)
[2018-09-30] MEDS: pantoprazole 40mg Tablet.DR PO SCH (07:14)
[2018-09-30] MEDS: carvedilol 6.25mg tablet PO SCH ×2 (07:14→20:22)
[2018-09-30] MEDS: multivitamins, therapeutics tablet PO SCH (07:14)
[2018-09-30] MEDS: lisinopril 2.5mg tablet PO SCH (07:14)
[2018-09-30] MEDS: docusate sod 100mg capsule PO SCH ×2 (07:14→19:14)
[2018-09-30] MEDS: levoFLOXACIN-Levaquin 750MG/D5 150 ML IV SCH (07:15)
[2018-09-30] MEDS: K and/or MAG REPLACEMENT MC SCH (08:00)
[2018-09-30] MEDS ORDERED: non-formulary drug (Multivitamin (Multi Vitamin Daily) 1 EACH) PO SCH (08:00)
--- NOTE | 2018-09-30 17:50 | NUR ---
Orientee documentation: I have reviewed and agree with all interventions, assessments performed and documented by Melina ENRIQUEZ. Orientee Medication Administration: For this medication-pass time frame, all medication were reviewed, dispensed, administered and documented per hospital policy by Melina ENRIQUEZ.
[2018-09-30 18:00] VITALS: BP 121/78
--- NOTE | 2018-09-30 18:16 | NUR ---
Problems reprioritized. Patient report given, questions answered & plan of care reviewed with Nataliia ENRIQUEZ and Alta RN. Patient is resting in bed and in no acute distress.
--- NOTE | 2018-09-30 18:40 | NUR ---
Patient in room PCU 3013. I have received report from Jhon ENRIQUEZ and had the opportunity to ask questions and assume patient care.
[2018-09-30] MEDS: furosemide 40mg/4ml inj IV SCH (20:22)
[2018-09-30 23:00] VITALS: BP 119/74
[2018-09-30] MEDS: morphine 4 MG/ML inj SYRINge IV PRN (23:24)
[2018-10-01] MEDS: HYDROcodone/acetaminophen 10/325mg tab PO PRN ×2 (00:27→16:17)
[2018-10-01] MEDS: methylPREDNISolone sod succ 125mg/2ml vial IV SCH ×4 (01:28→20:52)
[2018-10-01 03:00] VITALS: BP 127/79
[2018-10-01 05:12] LABS: LYMPHOCYTES # (AUTO) 0.3 X10'3 (1.1-4.8); MEAN PLATELET VOLUME 8.3 FL (7.4-10.4); MONOCYTES # (AUTO) 0.3 X10'3 (0-0.9); NEUTROPHILS # (AUTO) 6.9 X10'3 (1.8-7.7); WHITE BLOOD COUNT 7.5 X10'3 (4.5-11.0)
[2018-10-01 05:17] LABS: BASOPHILS % (AUTO) 0.3 % (0-1); EOSINOPHILS % (AUTO) 0 % (0-6); HEMATOCRIT 30.3 % (42.0-52.0); HEMOGLOBIN 9.9 g/dl (14.0-17.9); LYMPHOCYTES % (AUTO) 4.1 % (21-51); MEAN CORPUSCULAR HEMOGLOBIN 23.5 PG (27.0-31.0); MEAN CORPUSCULAR HGB CONC 32.5 g/dL (33.0-36.5); MEAN CORPUSCULAR VOLUME 72.1 FL (78-98); MONOCYTES % (AUTO) 3.6 % (2-12); PLATELET COUNT 138 X10'3 (140-440); RED BLOOD COUNT 4.21 X10'6 (4.70-6.10); RED CELL DISTRIBUTION WIDTH 25.6 % (11.5-14.5)
[2018-10-01 05:22] LABS: ALBUMIN 2.9 G/DL (3.4-5.0); ANION GAP 3 (8-16); BLOOD UREA NITROGEN 37 MG/DL (7-18); BUN/CREATININE RATIO 30.8 (5.4-32.0); CALCIUM 8.1 MG/DL (8.5-10.1); CHLORIDE 99 MMOL/L (99-107); GLUCOSE 138 MG/DL (70-104); POTASSIUM 3.8 MMOL/L (3.5-5.1); SODIUM 136 MMOL/L (135-145); TOTAL CARBON DIOXIDE 34.5 MMOL/L (24-32); eGFR 58 ML/MIN
[2018-10-01 06:00] VITALS: BP 139/71
--- NOTE | 2018-10-01 06:30 | NUR ---
Patient in room PCU 3013A. I have received report from Alta ENRIQUEZ and had the opportunity to ask questions and assume patient care.
--- NOTE | 2018-10-01 06:30 | NUR ---
Patient in room PCU 3013. I have received report from Alta ENRIQUEZ and had the opportunity to ask questions and assume patient care.
[2018-10-01 06:33] LABS: ANISOCYTOSIS 3+; HYPOCHROMASIA 1+; MICROCYTOSIS 1+; PLATELET ESTIMATE DECREASED; SCHISTOCYTES FEW
[2018-10-01] MEDS: ipratropium/albuterol 3ml nebule NEB SCH ×5 (07:30→23:10)
[2018-10-01] MEDS: K and/or MAG REPLACEMENT MC SCH (08:00)
[2018-10-01] MEDS: docusate sod 100mg capsule PO SCH ×2 (08:16→20:51)
[2018-10-01] MEDS: heparin, porcine 5000 units/ml vial SQ SCH ×2 (08:16→20:51)
[2018-10-01] MEDS: furosemide 40mg/4ml inj IV SCH ×2 (08:16→20:52)
[2018-10-01] MEDS: multivitamins, therapeutics tablet PO SCH (08:16)
[2018-10-01] MEDS: potassium Cl 20 mEq SR tablet PO SCH (08:17)
[2018-10-01] MEDS: carvedilol 6.25mg tablet PO SCH ×2 (08:17→20:51)
[2018-10-01] MEDS: pantoprazole 40mg Tablet.DR PO SCH (08:18)
[2018-10-01] MEDS: lisinopril 2.5mg tablet PO SCH (08:18)
--- NOTE | 2018-10-01 09:45 | NUR ---
Right hand IV no longer working--D/C'd with catheter intact. Initiated 22 G IV in right forearm. Patient tolerated procedure well with no complaints. IV patent and flushing well.
[2018-10-01 11:00] VITALS: BP 130/73
[2018-10-01] MEDS ORDERED: levoFLOXACIN 750MG TABLET PO SCH (11:00)
[2018-10-01 15:00] VITALS: BP 128/69
--- NOTE | 2018-10-01 18:15 | NUR ---
Problems reprioritized. Patient report given, questions answered & plan of care reviewed with Mare ENRIQUEZ .
--- NOTE | 2018-10-01 18:20 | NUR ---
Problems reprioritized. Patient report given, questions answered & plan of care reviewed with Mare ENRIQUEZ.
--- NOTE | 2018-10-01 18:21 | NUR ---
Patient in room PCU 3013. I have received report from MARIE ENRIQUEZ and had the opportunity to ask questions and assume patient care.
--- NOTE | 2018-10-01 18:26 | NUR ---
Orientee documentation: I have reviewed and agree with all interventions, assessments performed and documented by Melina ENRIQUEZ .\ Orientee Medication Administration: For this medication-pass time frame, all medication were reviewed, dispensed, administered and documented per hospital policy by Melina ENRIQUEZ.
[2018-10-01 19:00] VITALS: BP 117/58
[2018-10-01 23:00] VITALS: BP 125/73
[2018-10-02] VITALS (7 sets, daily range): BP systolic 105–137; BP diastolic 55–81
[2018-10-02] MEDS: HYDROcodone/acetaminophen 10/325mg tab PO PRN ×2 (00:30→20:24)
[2018-10-02] MEDS: methylPREDNISolone sod succ 125mg/2ml vial IV SCH ×4 (02:52→20:26)
[2018-10-02] MEDS: ipratropium/albuterol 3ml nebule NEB SCH ×6 (03:17→23:03)
--- NOTE | 2018-10-02 04:47 | NUR ---
called carlos a [employer] and stated to nurse he received culture
[2018-10-02 05:55] LABS: BASOPHILS % (AUTO) 0.2 % (0-1); EOSINOPHILS % (AUTO) 0 % (0-6)
[2018-10-02 05:58] LABS: HEMATOCRIT 33.6 % (42.0-52.0); HEMOGLOBIN 10.5 g/dl (14.0-17.9); LYMPHOCYTES # (AUTO) 0.3 X10'3 (1.1-4.8); LYMPHOCYTES % (AUTO) 3.6 % (21-51); MEAN CORPUSCULAR HEMOGLOBIN 22.6 PG (27.0-31.0); MEAN CORPUSCULAR HGB CONC 31.4 g/dL (33.0-36.5); MEAN CORPUSCULAR VOLUME 72.1 FL (78-98); MEAN PLATELET VOLUME 8.4 FL (7.4-10.4); MONOCYTES # (AUTO) 0.3 X10'3 (0-0.9); MONOCYTES % (AUTO) 3.9 % (2-12); NEUTROPHILS # (AUTO) 6.6 X10'3 (1.8-7.7); NEUTROPHILS % (AUTO) 92.3 % (42-75); PLATELET COUNT 142 X10'3 (140-440); RED BLOOD COUNT 4.65 X10'6 (4.70-6.10); RED CELL DISTRIBUTION WIDTH 25.7 % (11.5-14.5); WHITE BLOOD COUNT 7.1 X10'3 (4.5-11.0)
[2018-10-02 06:04] LABS: ALBUMIN 3.2 G/DL (3.4-5.0); ANION GAP 4 (8-16); BLOOD UREA NITROGEN 35 MG/DL (7-18); BUN/CREATININE RATIO 29.9 (5.4-32.0); CALCIUM 8.3 MG/DL (8.5-10.1); CHLORIDE 97 MMOL/L (99-107); CREATININE 1.17 MG/DL (0.60-1.10); GLUCOSE 130 MG/DL (70-104); MAGNESIUM 2.2 MG/DL (1.5-2.4); POTASSIUM 3.3 MMOL/L (3.5-5.1); SODIUM 137 MMOL/L (135-145); TOTAL CARBON DIOXIDE 36.3 MMOL/L (24-32); eGFR 60 ML/MIN
--- NOTE | 2018-10-02 06:08 | NUR ---
Problems reprioritized. Patient report given, questions answered & plan of care reviewed with oliverio amato.
--- NOTE | 2018-10-02 06:30 | NUR ---
Patient in room PCU 3013. I have received report from Mare ENRIQUEZ and had the opportunity to ask questions and assume patient care.
[2018-10-02 07:47] LABS: ANISOCYTOSIS 3+; MICROCYTOSIS 1+; PLATELET ESTIMATE NORMAL
[2018-10-02 07:48] LABS: ELLIPTOCYTES 1+; HYPOCHROMASIA 1+; SCHISTOCYTES 1+
[2018-10-02] MEDS: K and/or MAG REPLACEMENT MC SCH (08:00)
[2018-10-02] MEDS ORDERED: levoFLOXACIN 750MG TABLET PO SCH (08:00)
[2018-10-02] MEDS: furosemide 40mg/4ml inj IV SCH ×2 (09:10→20:26)
[2018-10-02] MEDS: carvedilol 6.25mg tablet PO SCH ×2 (09:10→20:25)
[2018-10-02] MEDS: pantoprazole 40mg Tablet.DR PO SCH (09:10)
[2018-10-02] MEDS: docusate sod 100mg capsule PO SCH ×2 (09:10→20:23)
[2018-10-02] MEDS: potassium Cl 20 mEq SR tablet PO SCH (09:11)
[2018-10-02] MEDS: multivitamins, therapeutics tablet PO SCH (09:11)
[2018-10-02] MEDS: lisinopril 2.5mg tablet PO SCH (09:12)
[2018-10-02] MEDS: heparin, porcine 5000 units/ml vial SQ SCH ×2 (09:13→20:26)
[2018-10-02] MEDS: morphine 4 MG/ML inj SYRINge IV PRN (12:07)
--- NOTE | 2018-10-02 15:00 | NUR ---
Student documentation: I have reviewed and agree with all interventions, assessments performed and documented by Vania SORIA. Student Medication Administration: For this medication-pass time frame, all medication were reviewed, dispensed, administered and documented per hospital policy by Vania SORIA.
--- NOTE | 2018-10-02 18:30 | NUR ---
Problems reprioritized. Patient report given, questions answered & plan of care reviewed with Sagrario ENRIQUEZ.
[2018-10-02] MEDS ORDERED: potassium Cl 20 mEq SR tablet PO PRN (19:50)
[2018-10-02] MEDS: potassium Cl 20 mEq SR tablet PO PRN (20:23)
[2018-10-03] MEDS: methylPREDNISolone sod succ 125mg/2ml vial IV SCH ×2 (02:29→08:04)
[2018-10-03] MEDS: potassium Cl 20 mEq SR tablet PO PRN (02:29)
[2018-10-03 03:00] VITALS: BP 139/77
[2018-10-03] MEDS: ipratropium/albuterol 3ml nebule NEB SCH ×3 (03:15→11:37)
[2018-10-03 05:56] LABS: ALBUMIN 2.9 G/DL (3.4-5.0); ANION GAP 4 (8-16); BLOOD UREA NITROGEN 34 MG/DL (7-18); BUN/CREATININE RATIO 28.6 (5.4-32.0); CALCIUM 8.2 MG/DL (8.5-10.1); CHLORIDE 98 MMOL/L (99-107); CREATININE 1.19 MG/DL (0.60-1.10); GLUCOSE 136 MG/DL (70-104); MAGNESIUM 2.1 MG/DL (1.5-2.4); POTASSIUM 3.6 MMOL/L (3.5-5.1); SODIUM 139 MMOL/L (135-145); TOTAL CARBON DIOXIDE 36.8 MMOL/L (24-32); eGFR 59 ML/MIN
[2018-10-03 05:57] LABS: BASOPHILS % (AUTO) 0 % (0-1); EOSINOPHILS % (AUTO) 0 % (0-6); HEMATOCRIT 33.4 % (42.0-52.0); HEMOGLOBIN 10.3 g/dl (14.0-17.9); LYMPHOCYTES # (AUTO) 0.2 X10'3 (1.1-4.8); LYMPHOCYTES % (AUTO) 3.3 % (21-51); MEAN CORPUSCULAR HEMOGLOBIN 22.3 PG (27.0-31.0); MEAN CORPUSCULAR HGB CONC 30.9 g/dL (33.0-36.5); MEAN CORPUSCULAR VOLUME 72.1 FL (78-98); MEAN PLATELET VOLUME 8.2 FL (7.4-10.4); MONOCYTES # (AUTO) 0.5 X10'3 (0-0.9); MONOCYTES % (AUTO) 7.7 % (2-12); NEUTROPHILS # (AUTO) 6.3 X10'3 (1.8-7.7); PLATELET COUNT 124 X10'3 (140-440); RED BLOOD COUNT 4.63 X10'6 (4.70-6.10); RED CELL DISTRIBUTION WIDTH 25.5 % (11.5-14.5); WHITE BLOOD COUNT 7.1 X10'3 (4.5-11.0)
[2018-10-03 06:00] VITALS: BP 157/89
--- NOTE | 2018-10-03 06:13 | NUR ---
Problems reprioritized. Patient report given, questions answered & plan of care reviewed with Latisha ENRIQUEZ.
[2018-10-03 06:37] LABS: TOTAL CELLS COUNTED 100
[2018-10-03 06:38] LABS: ANISOCYTOSIS 3+; HYPERSEGMENTED NEUTROPHILS 1+; HYPOCHROMASIA 1+; MICROCYTOSIS 1+; PLATELET ESTIMATE DECREASED
[2018-10-03 06:39] LABS: ELLIPTOCYTES 1+; SCHISTOCYTES FEW; TEAR DROP CELLS FEW
--- NOTE | 2018-10-03 06:45 | NUR ---
Patient in room PCU 3013A. I have received report from ZOE REYES and had the opportunity to ask questions and assume patient care.
[2018-10-03] MEDS: docusate sod 100mg capsule PO SCH (07:59)
[2018-10-03] MEDS: pantoprazole 40mg Tablet.DR PO SCH (08:00)
[2018-10-03] MEDS: potassium Cl 20 mEq SR tablet PO SCH (08:00)
[2018-10-03] MEDS: K and/or MAG REPLACEMENT MC SCH (08:00)
[2018-10-03] MEDS: multivitamins, therapeutics tablet PO SCH (08:01)
[2018-10-03] MEDS: lisinopril 2.5mg tablet PO SCH (08:01)
[2018-10-03] MEDS: carvedilol 6.25mg tablet PO SCH (08:02)
[2018-10-03] MEDS: furosemide 40mg/4ml inj IV SCH (08:04)
[2018-10-03] MEDS: heparin, porcine 5000 units/ml vial SQ SCH (08:06)
[2018-10-03] MEDS ORDERED: LEVO750T46 PO (09:51)
[2018-10-03] MEDS ORDERED: PRED10TA23 PO (09:51)
[2018-10-03] MEDS: HYDROcodone/acetaminophen 10/325mg tab PO PRN (10:02)
[2018-10-03 11:00] VITALS: BP 139/83
--- NOTE | 2018-10-03 11:00 | NUR ---
Patient claimed he came in with his own personal wheelchair which he described as a lift chair that is black with a brown cushion. The admissions belongings list does not have a wheelchair listed. ED was contacted as well as axillary to attempt to locate with no success. Patient notified we do not have record of it being at the hospital with him nor have a wheelchair that fits that description.
--- NOTE | 2018-10-03 12:44 | NUR ---
Problems reprioritized. Patient report given, questions answered & plan of care reviewed with ZOE Lantigua.
--- NOTE | 2018-10-03 12:50 | NUR ---
Patient in room PCU 3013. I have received report from Latisha Barbosa RN and had the opportunity to ask questions and assume patient care.
--- NOTE | 2018-10-03 13:20 | NUR ---
Patient discharged from unit with and hospital staff; patient mode of transport wheelchair that neonatal social worker arranged and patient agreed to take home.
== END 2018-10-03 14:45 | disposition home health service (06) | DRG 291 ==
LOC: ER 12:00 → ED HOLD 15:28 → PCU 3S 18:45
PROVIDERS: ADMIT Internal Medicine; ATTEND Internal Medicine
DX: I13.0 Hypertensive heart and chronic kidney disease with heart failure and stage 1 through stage 4 chronic kidney disease, or unspecified chronic kidney disease (principal); J96.20 Acute and chronic respiratory failure, unspecified whether with hypoxia or hypercapnia; I50.43 Acute on chronic combined systolic (congestive) and diastolic (congestive) heart failure; J44.1 Chronic obstructive pulmonary disease with (acute) exacerbation; J44.0 Chronic obstructive pulmonary disease with (acute) lower respiratory infection; N17.9 Acute kidney failure, unspecified; I42.9 Cardiomyopathy, unspecified; I27.20 Pulmonary hypertension, unspecified; I25.10 Atherosclerotic heart disease of native coronary artery without angina pectoris; D64.9 Anemia, unspecified; G47.30 Sleep apnea, unspecified; I36.1 Nonrheumatic tricuspid (valve) insufficiency; I48.91 Unspecified atrial fibrillation; J20.9 Acute bronchitis, unspecified; K21.9 Gastro-esophageal reflux disease without esophagitis; N18.9 Chronic kidney disease, unspecified; G89.29 Other chronic pain; M54.9 Dorsalgia, unspecified; Z90.49 Acquired absence of other specified parts of digestive tract; I25.2 Old myocardial infarction; Z95.0 Presence of cardiac pacemaker; Z99.81 Dependence on supplemental oxygen; Z79.82 Long term (current) use of aspirin; Z79.899 Other long term (current) drug therapy; Z87.891 Personal history of nicotine dependence; Z87.11 Personal history of peptic ulcer disease
CPT/HCPCS: 36415; 36600; 71045; 80048; 80053; 82803; 83735; 83880; 84484; 85018; 85025; 85610; 85730; 87070; 93005; 93306; 94640; 94760; 96374; 97110; 97116; 97161; 97530; 99285; G0378; J1644; J1940; J1956; J2270; J2930

== ENCOUNTER 2018-10-06 15:15 | Outpatient (CLI) | payer MEDICARE, BC ==
[~2018-10-06 15:15] MED LIST changes: +ALBU18HF2 IH; -ASPI81TA52 PO; -ATI0.5T PO; +GABA-532 PO; +HYDR-3973 PO; +LORA0.5T PO; +MULT-1085 PO; +OMEP-50 PO; +POTA20TA10 PO; +PRED10TA23 PO; -PRED20TA PO; -QUET25TA PO; -QUET50TA22 PO; -SERT25TA5 PO; +TIZA2TAB4 PO
[2018-10-06 15:23] VITALS: BP 127/79
== END 2018-10-06 15:45 | disposition home or self-care (01) ==
LOC: ORTHO 15:15
PROVIDERS: ATTEND Nurse Practitioner Family
DX: S82.64XG Nondisplaced fracture of lateral malleolus of right fibula, subsequent encounter for closed fracture with delayed healing (principal); S82.65XD Nondisplaced fracture of lateral malleolus of left fibula, subsequent encounter for closed fracture with routine healing; I48.91 Unspecified atrial fibrillation; I25.10 Atherosclerotic heart disease of native coronary artery without angina pectoris; I11.0 Hypertensive heart disease with heart failure; I50.9 Heart failure, unspecified; I25.2 Old myocardial infarction; J44.9 Chronic obstructive pulmonary disease, unspecified; Z98.890 Other specified postprocedural states; Z79.899 Other long term (current) drug therapy; W19.XXXD Unspecified fall, subsequent encounter
CPT/HCPCS: 73610; 99213

== ENCOUNTER 2018-10-17 05:55 | Day surgery (SDC) | payer MEDICARE, BC ==
[2018-10-09 15:53] LABS: MEAN PLATELET VOLUME 8.3 FL (7.4-10.4)
[2018-10-09 15:55] LABS: MEAN CORPUSCULAR HEMOGLOBIN 22.6 PG (27.0-31.0); MEAN CORPUSCULAR HGB CONC 30.1 g/dL (33.0-36.5); MEAN CORPUSCULAR VOLUME 75.3 FL (78-98); PRE OP PLATELET COUNT 161 X10'3 (140-440); RED BLOOD COUNT 4.78 X10'6 (4.70-6.10); RED CELL DISTRIBUTION WIDTH 25.9 % (11.5-14.5)
[2018-10-09 16:08] LABS: ALBUMIN 3.3 G/DL (3.4-5.0); ALBUMIN/GLOBULIN RATIO 1.2 (1.1-1.5); ALKALINE PHOSPHATASE 66 IU/L (46-116); BLOOD UREA NITROGEN 16 MG/DL (7-18); BUN/CREATININE RATIO 15.7 (5.4-32.0); CALCIUM 8.7 MG/DL (8.5-10.1); CHLORIDE 102 MMOL/L (99-107); CREATININE 1.02 MG/DL (0.60-1.10); PRE OP ALT 39 U/L (30-65); PRE OP ANION GAP 9 (8-16); PRE OP AST 17 U/L (10-37); PRE OP BILIRUB, TOTAL 0.7 MG/DL (0.0-1.0); PRE OP GLUCOSE 122 MG/DL (70-104); PRE OP POTASSIUM 4.3 MMOL/L (3.4-5.1); PRE OP SODIUM 140 MMOL/L (135-145); TOTAL CARBON DIOXIDE 29.2 MMOL/L (24-32); TOTAL PROTEIN 6.1 G/DL (6.4-8.2); eGFR 70 ML/MIN
[2018-10-09 16:29] LABS: PRE OP HEMOGLOBIN 10.8 g/dL (14.0-17.9)
[2018-10-09 16:31] LABS: TOTAL CELLS COUNTED 100
[2018-10-09 16:32] LABS: ANISOCYTOSIS 3+; MICROCYTOSIS 1+; PLATELET ESTIMATE NORMAL
[2018-10-09 16:33] LABS: ELLIPTOCYTES FEW; HYPOCHROMASIA 1+; POLYCHROMASIA 1+; SCHISTOCYTES FEW
[2018-10-17] VITALS (8 sets, daily range): BP systolic 128–165; BP diastolic 74–80
[~2018-10-17] VITALS: Ht 182.9 cm; Wt 95.3 kg
[~2018-10-17 05:55] MED LIST changes: +ACET-2119 PO; +DOCU-28 PO; +DOCUMENT DATE & TIME OF BETA-BLOCKER PO ONE; -GABA-532 PO; -HYDR-3973 PO; -LEVO750T46 PO; -LORA0.5T PO; -MULT-1085 PO; +POLY17PO10 PO; -PRED10TA23 PO; -TIZA2TAB4 PO; +albuterol 2.5 MG/3 ML nebule NEB ONE; +ceFAZolin 2gm in dextrose, iso 100 ML IV ONE; +famotidine 20mg tablet PO ONE; +ringers solution, lacted 1,000 ML IV SCH
[2018-10-17] MEDS ORDERED: LIDOcaine 0.5% (5mg/ml) 50ml vial ONE (07:26)
[2018-10-17] MEDS ORDERED: ringers solution, lacted 1,000 ML IV SCH (07:31)
[2018-10-17] MEDS ORDERED: ondansetron/PF 4mg/2ml inj IV PRN (07:35)
[2018-10-17] MEDS ORDERED: hydrALAZINE 20mg/ml inj. IV PRN (07:35)
[2018-10-17] MEDS ORDERED: fentaNYL/PF 50MCG/1 ML 2ML syringe IV PRN ×2 (07:35)
[2018-10-17] MEDS ORDERED: enalaprilat dihydrate 2.5mg/2ml vial IV PRN (07:35)
[2018-10-17] MEDS ORDERED: morphine 4 MG/ML inj SYRINge IV PRN ×2 (07:35)
[2018-10-17] MEDS ORDERED: BUPIVAcaine/PF 2.5mg/ml (0.25%) 10ml vial ONE (07:47)
[2018-10-17] MEDS ORDERED: fentaNYL/PF 50MCG/1 ML 2ML syringe ONE (08:47)
[2018-10-17] MEDS ORDERED: midazolam 2 mg/2 ml injection ONE (09:20)
--- NOTE | 2018-10-17 09:27 | NUR ---
Received from OR via , accompanied by Anesthesiologist RANDY and report given by Anesthesiolgist. AWAKE IN NO RESP DISTRESS SKIN WARM AND DRY HOB AND LUE ELEVATED, FINGERS WARM PINK GOOD CAP REFILL NO CO PAIN. VS WNL. USES O2 AT HOME. ICE TO LEFT HAND WRIST AREA.
--- NOTE | 2018-10-17 10:27 | NUR ---
AWAKE VS WNL, NO CO PAIN, DSG DI, FINGERS MOVE, WARM, PINK GOOD CAP REFILL, ICE TO BACK OF WRIST, TOLERATES LIQUIDS, USES O2 AT NITE, IS 93% ON ROOM AIR. DISCH HOME WITH INSTRUCTIONS GIVEN AND UNDERSTOOD. NO SCRIPT ORDERED BY OK, HOWEVER PT HAS PAIN MEDS AT HOME AND AWARE HOW TO USE THEM.
== END 2018-10-17 10:37 | disposition home or self-care (01) ==
LOC: PAS 05:55
PROVIDERS: ATTEND Orthopaedic Surgery Hand Surgery
DX: M19.032 Primary osteoarthritis, left wrist (principal); I42.9 Cardiomyopathy, unspecified; J44.9 Chronic obstructive pulmonary disease, unspecified; Z96.89 Presence of other specified functional implants; Z96.641 Presence of right artificial hip joint; M19.011 Primary osteoarthritis, right shoulder; Z98.890 Other specified postprocedural states; F17.210 Nicotine dependence, cigarettes, uncomplicated
CPT/HCPCS: 25215; 36415; 80053; 85025; 93005; A6449; J0690; J2001; J2250; J3010; J3490; A7000; J7120

== ENCOUNTER 2018-10-30 13:09 | Inpatient (IN) | payer MEDICARE, BC | END 2018-11-04 12:38 | LOC: ER 13:09 → ED HOLD 18:55 → ORTHO 4S 19:02 | PROC: 0JDK0ZZ Extraction of Left Hand Subcutaneous Tissue and Fascia, Open Approach (ICD-10-PCS; principal; 2018-10-31 12:46) | PROC: 0RBR0ZZ Excision of Left Carpal Joint, Open Approach (ICD-10-PCS; 2018-10-31 12:46) | PROC: 0PBN0ZZ Excision of Left Carpal, Open Approach (ICD-10-PCS; 2018-10-31 12:46) | DX: T81.41XA Infection following a procedure, superficial incisional surgical site, initial encounter (principal); L03.114 Cellulitis of left upper limb; M00.9 Pyogenic arthritis, unspecified; I48.2 Chronic atrial fibrillation; J44.9 Chronic obstructive pulmonary disease, unspecified; D64.9 Anemia, unspecified ==

== ENCOUNTER 2019-03-19 15:32 | Outpatient (CLI) | payer MEDICARE, BC ==
[~2019-03-19] VITALS: Ht 182.9 cm; Wt 97.5 kg
[~2019-03-19 15:32] MED LIST changes: -ACET-2119 PO; -ALBU18HF2 IH; +CEFD300C3 PO; -DOCU-28 PO; -DOCUMENT DATE & TIME OF BETA-BLOCKER PO ONE; +IPRA3AMP9 NEB; -OMEP-50 PO; +OXYC-511 PO; +PANT40SU2 PO; -POLY17PO10 PO; +ROPI0.2540 PO; -albuterol 2.5 MG/3 ML nebule NEB ONE; -ceFAZolin 2gm in dextrose, iso 100 ML IV ONE; -famotidine 20mg tablet PO ONE; -ringers solution, lacted 1,000 ML IV SCH
[2019-03-19 16:10] LABS: TOTAL HEMOGLOBIN 11.4 G/dl (14.0-17.9)
[2019-03-19] MEDS ORDERED: albuterol 2.5 MG/3 ML nebule NEB PRN (16:20)
== END 2019-03-19 23:59 | disposition home or self-care (01) ==
LOC: RT 15:32
PROVIDERS: ATTEND Internal Medicine Pulmonary Disease
DX: J44.9 Chronic obstructive pulmonary disease, unspecified (principal); I50.9 Heart failure, unspecified; Z87.891 Personal history of nicotine dependence; Z79.899 Other long term (current) drug therapy; Z95.0 Presence of cardiac pacemaker
CPT/HCPCS: 85018; 94060; 94727; 94729; 94760

== ENCOUNTER 2019-05-04 14:05 | Inpatient (IN) | payer MEDICARE, BC ==
[~2019-05-04] VITALS: Ht 182.9 cm; Wt 96.9 kg
[2019-05-04 15:28] LABS: BASOPHILS % (AUTO) 0.4 % (0-1); EOSINOPHILS % (AUTO) 0.1 % (0-6); HEMATOCRIT 31.9 % (42.0-52.0); HEMOGLOBIN 9.8 g/dl (14.0-17.9); LYMPHOCYTES # (AUTO) 0.4 X10'3 (1.1-4.8); LYMPHOCYTES % (AUTO) 5.3 % (21-51); MEAN CORPUSCULAR HEMOGLOBIN 25.1 PG (27.0-31.0); MEAN CORPUSCULAR HGB CONC 30.8 g/dL (33.0-36.5); MEAN CORPUSCULAR VOLUME 81.5 FL (78-98); MEAN PLATELET VOLUME 6.8 FL (7.4-10.4); MONOCYTES # (AUTO) 0.3 X10'3 (0-0.9); MONOCYTES % (AUTO) 4.2 % (2-12); NEUTROPHILS # (AUTO) 6.5 X10'3 (1.8-7.7); PLATELET COUNT 157 X10'3 (140-440); RED BLOOD COUNT 3.91 X10'6 (4.70-6.10); RED CELL DISTRIBUTION WIDTH 19.5 % (11.5-14.5); WHITE BLOOD COUNT 7.2 X10'3 (4.5-11.0)
[2019-05-04 15:43] LABS: ALANINE AMINOTRANSFERASE 18 U/L (12-78); ALBUMIN 3.5 G/DL (3.4-5.0); ALBUMIN/GLOBULIN RATIO 1.1 (1.1-1.5); ALKALINE PHOSPHATASE 67 IU/L (46-116); ANION GAP 4 (8-16); ASPARTATE AMINO TRANSFERASE 16 U/L (10-37); BILIRUBIN,TOTAL 0.8 MG/DL (0.1-1.0); BLOOD UREA NITROGEN 18 MG/DL (7-18); BUN/CREATININE RATIO 14.3 (5.4-32.0); CALCIUM 8.9 MG/DL (8.5-10.1); CHLORIDE 103 MMOL/L (99-107); CREATININE 1.26 MG/DL (0.60-1.10); GLUCOSE 123 MG/DL (70-104); POTASSIUM 4.7 MMOL/L (3.5-5.1); SODIUM 141 MMOL/L (135-145); TOTAL CARBON DIOXIDE 33.7 MMOL/L (24-32); TOTAL PROTEIN 6.8 G/DL (6.4-8.2); eGFR 55 ML/MIN
[2019-05-04] MEDS ORDERED: potassium Cl 20 mEq SR tablet PO STA (16:06)
[2019-05-04] MEDS ORDERED: furosemide 10 MG/1 ML 10ml inj IV ONE (16:10)
[2019-05-04] MEDS ORDERED: ipratropium/albuterol 3ml nebule NEB ONE (16:15)
[2019-05-04] MEDS ORDERED: CefTRIAXone 2gm/D5W 50ml 50 ML IV ONE (16:15)
[2019-05-04] MEDS ORDERED: methylPREDNISolone sod succ 125mg/2ml vial IV ONE (16:15)
[2019-05-04] MEDS ORDERED: ACET-75 PO (17:30)
[2019-05-04] MEDS ORDERED: FLUT1BLS4 PO (17:30)
[2019-05-04] MEDS ORDERED: HYDR-3972 PO (17:30)
[2019-05-04] MEDS ORDERED: acetaminophen 325mg tablet PO PRN (17:40)
[2019-05-04] MEDS ORDERED: ondansetron/PF 4mg/2ml inj IV PRN (17:40)
[2019-05-04] MEDS ORDERED: mag hydrox/Alum hydrox/simeth 30ml oral suspension PO PRN (17:40)
[2019-05-04] MEDS ORDERED: IPRA3AMP31 PO (17:53)
[2019-05-04] MEDS ORDERED: CARV6.253 PO (17:53)
[2019-05-04] MEDS ORDERED: MAGN400O6 PO (17:55)
[2019-05-04] MEDS: HYDROcodone/acetaminophen 5mg/325mg tablet PO PRN (18:12)
[2019-05-04] MEDS ORDERED: nitroGLYCERIN 0.4mg/hour patch TD ONE (18:15)
[2019-05-04 19:00] VITALS: BP 143/80
--- NOTE | 2019-05-04 19:11 | NUR ---
Patient arrived on unit at 1900 via wheelchair escorted by ZOE Greene. Patient is on 5 L NC. Vital signs are 99.1, 93% on 5 L NC, 143/80, RR 20 pain 0. Tele 51 applied, MRSA SWAB collected.
[2019-05-04] MEDS: furosemide 40mg/4ml inj IV SCH (20:26)
[2019-05-04] MEDS: carvedilol 6.25mg tablet PO SCH (20:27)
[2019-05-04] MEDS: magnesium hydroxide 30ml (MOM) UD suspension PO SCH (20:28)
[2019-05-04] MEDS: ipratropium/albuterol 3ml nebule NEB PRN (21:12)
--- NOTE | 2019-05-04 22:03 | NUR ---
Sent to Connie MESSAGE: Room 3017B, Al, Elliot: New EKG shows possible Mild ST elevation. Trops are all negative so far X3. Thank you, Maritza Coe [phone] ([phone] character message out of a maximum of [phone])
--- NOTE | 2019-05-04 22:19 | NUR ---
Patient in room PCU 3017. I have received report from ZOE Deal in ED and had the opportunity to ask questions and assume patient care.
[2019-05-04 22:54] VITALS: BP 104/68
--- NOTE | 2019-05-05 00:46 | NUR ---
sent to Connie MESSAGE: room 3017B, Elliot Melendez: Repeat EKG shows no significant changes Thank you, Maritza
[2019-05-05] MEDS: HYDROcodone/acetaminophen 5mg/325mg tablet PO PRN ×2 (00:51→19:38)
--- NOTE | 2019-05-05 01:29 | NUR ---
New small skin tear from NA removing electrode sticker from patient left shoulder. Picture taken, placed in chart
--- NOTE | 2019-05-05 01:30 | NUR ---
Dr. Rosales viewed both patients ekgs and signed of no ST elevation PR.
[2019-05-05 03:00] VITALS: BP 121/61
[2019-05-05 03:33] LABS: BASOPHILS % (AUTO) 0.1 % (0-1); EOSINOPHILS % (AUTO) 0 % (0-6); HEMATOCRIT 31.9 % (42.0-52.0); HEMOGLOBIN 9.8 g/dl (14.0-17.9); LYMPHOCYTES # (AUTO) 0.5 X10'3 (1.1-4.8); LYMPHOCYTES % (AUTO) 10.4 % (21-51); MEAN CORPUSCULAR HEMOGLOBIN 24.9 PG (27.0-31.0); MEAN CORPUSCULAR HGB CONC 30.7 g/dL (33.0-36.5); MEAN CORPUSCULAR VOLUME 81.2 FL (78-98); MEAN PLATELET VOLUME 7.1 FL (7.4-10.4); MONOCYTES # (AUTO) 0.3 X10'3 (0-0.9); MONOCYTES % (AUTO) 5.2 % (2-12); NEUTROPHILS # (AUTO) 4.2 X10'3 (1.8-7.7); NEUTROPHILS % (AUTO) 84.3 % (42-75); PLATELET COUNT 152 X10'3 (140-440); RED BLOOD COUNT 3.93 X10'6 (4.70-6.10); RED CELL DISTRIBUTION WIDTH 19.6 % (11.5-14.5)
[2019-05-05 03:43] LABS: ALBUMIN 3.5 G/DL (3.4-5.0); ANION GAP 4 (8-16); BLOOD UREA NITROGEN 20 MG/DL (7-18); BUN/CREATININE RATIO 13.8 (5.4-32.0); CALCIUM 8.1 MG/DL (8.5-10.1); CHLORIDE 101 MMOL/L (99-107); CREATININE 1.45 MG/DL (0.60-1.10); GLUCOSE 188 MG/DL (70-104); POTASSIUM 4.3 MMOL/L (3.5-5.1); SODIUM 141 MMOL/L (135-145); TOTAL CARBON DIOXIDE 36.3 MMOL/L (24-32); eGFR 47 ML/MIN
[2019-05-05 04:03] LABS: ANISOCYTOSIS 2+; ELLIPTOCYTES 1+; PLATELET ESTIMATE NORMAL
[2019-05-05 04:04] LABS: HYPOCHROMASIA 2+
[2019-05-05 06:00] VITALS: BP 141/86
--- NOTE | 2019-05-05 06:23 | NUR ---
Patient in room PCU 3017. I have received report from Maritza ENRIQUEZ and had the opportunity to ask questions and assume patient care.
--- NOTE | 2019-05-05 06:23 | NUR ---
Problems reprioritized. Patient report given, questions answered & plan of care reviewed with ZOE Park.
[2019-05-05] MEDS: potassium Cl 20 mEq SR tablet PO SCH (07:31)
[2019-05-05] MEDS: magnesium hydroxide 30ml (MOM) UD suspension PO SCH ×2 (07:31→19:19)
[2019-05-05] MEDS: furosemide 40mg/4ml inj IV SCH ×2 (07:31→19:17)
[2019-05-05] MEDS: pantoprazole 40mg Tablet.DR PO SCH (07:31)
[2019-05-05] MEDS: carvedilol 6.25mg tablet PO SCH ×2 (07:32→19:17)
[2019-05-05] MEDS: enoxaparin 40mg/0.4ml syringe SUBCUT SCH (07:32)
[2019-05-05] MEDS: ipratropium/albuterol 3ml nebule NEB PRN ×2 (08:11→12:02)
[2019-05-05] MEDS ORDERED: FLU VACC QS2019-20 36MOS UP/PF 60 MCG/0.5 ML SYRINGE IMVAC ONE (10:00)
[2019-05-05 11:00] VITALS: BP 128/95
[2019-05-05 15:00] VITALS: BP 133/85
[2019-05-05] MEDS: magnesium hydroxide 30ml (MOM) UD suspension PO PRN (15:30)
--- NOTE | 2019-05-05 18:12 | NUR ---
Problems reprioritized. Patient report given, questions answered & plan of care reviewed with Maritza. Patient stable at time of transfer of care.
--- NOTE | 2019-05-05 18:17 | NUR ---
Orientee documentation: I have reviewed and agree with all interventions, assessments performed and documented by Fay ENRIQUEZ. Orientee Medication Administration: For this medication-pass time frame, all medication were reviewed, dispensed, administered and documented per hospital policy by Fay ENRIQUEZ.
--- NOTE | 2019-05-05 18:33 | NUR ---
Patient in room PCU 3017. I have received report from Anali RN, Nora RN and had the opportunity to ask questions and assume patient care.
[2019-05-05 19:00] VITALS: BP 112/71
[2019-05-05] MEDS ORDERED: bisacodyl 10mg suppository rectal RC STA (21:08)
[2019-05-05] MEDS ORDERED: lactulose 20gm/30ml cup PO ONE (21:10)
[2019-05-05 23:00] VITALS: BP 106/60
[2019-05-05] MEDS: morphine 2 MG/ML inj. syringe IV PRN (23:15)
[2019-05-06] MEDS: HYDROcodone/acetaminophen 5mg/325mg tablet PO PRN ×4 (00:45→21:25)
--- NOTE | 2019-05-06 01:27 | NUR ---
Patient tried to resist his pain meds today due to his constipation. Tonight he has been in 10/10 pain, grunting, moaning, wincing, restless. Gave patient prn norco per md order. Pain still at 10, then gave patient prn morphine. Pain down to 8, next dose of prn norco given. Patient recieved 40 mg lactulose, and ducolax suppository. Patient was able to have small bowel movement. Stool sample ordered and posted on door of patient room, however, NA did not see it and flushed the stool. Will attempt to collect next BM.
[2019-05-06] MEDS ORDERED: HYDROmorphone 1 mg/ml syringe IV ONE (02:15)
[2019-05-06] MEDS ORDERED: mineral oil 133ml enema RC ONE (02:15)
--- NOTE | 2019-05-06 02:16 | NUR ---
This patient is still in 10/10 pain, visibly rocking, moving grunting and trying to get comfortable, O2 sat dropped to 80% on 2 L possibly due to increased RR possibly from pain... Received and order from Dr. Rosales for 1 mg Dilaudid. This patient is also very constipated and still having abdominal pain despite receiving 40 mg lactulose and Dulcolax suppository. Will administer mineral oil enema per MD order.
--- NOTE | 2019-05-06 02:21 | NUR ---
Spoke to Dr. Rosales and received orders to place patient back on tele with continuous pulse ox.
[2019-05-06 03:00] VITALS: BP 127/81
--- NOTE | 2019-05-06 03:38 | NUR ---
sent to Connie MESSAGE: room 3015L Elliot Melendez: Can I have a new order for tele fir this pt? His was a 24 hr tele order. He also needs continuous pulse ox. He is writhing in pain, 02 sat is 81 % on 2L bumped him to 5 L He is 90%. Maritza [phone]
[2019-05-06 05:19] LABS: BASOPHILS % (AUTO) 0.5 % (0-1); EOSINOPHILS # (AUTO) 0.1 X10'3 (0-0.9); EOSINOPHILS % (AUTO) 0.8 % (0-6); HEMATOCRIT 32.2 % (42.0-52.0); HEMOGLOBIN 10.3 g/dl (14.0-17.9); MEAN CORPUSCULAR HEMOGLOBIN 25.4 PG (27.0-31.0); MEAN CORPUSCULAR HGB CONC 31.9 g/dL (33.0-36.5); MEAN CORPUSCULAR VOLUME 79.5 FL (78-98); MEAN PLATELET VOLUME 6.5 FL (7.4-10.4); MONOCYTES # (AUTO) 1.4 X10'3 (0-0.9); MONOCYTES % (AUTO) 17.8 % (2-12); NEUTROPHILS # (AUTO) 5.6 X10'3 (1.8-7.7); NEUTROPHILS % (AUTO) 68.9 % (42-75); PLATELET COUNT 185 X10'3 (140-440); RED BLOOD COUNT 4.05 X10'6 (4.70-6.10); RED CELL DISTRIBUTION WIDTH 19.4 % (11.5-14.5); WHITE BLOOD COUNT 8.1 X10'3 (4.5-11.0)
--- NOTE | 2019-05-06 05:30 | NUR ---
This patient has had 40 mg of lactulose, a ducolax suppository, and a mineral oil enema. He had two small bowel movements, but of no significance given the medications given. He is still has a high amount of abdominal pain.
[2019-05-06 05:41] LABS: ALBUMIN 3.4 G/DL (3.4-5.0); ANION GAP 1 (8-16); BLOOD UREA NITROGEN 21 MG/DL (7-18); BUN/CREATININE RATIO 18.6 (5.4-32.0); CALCIUM 8.1 MG/DL (8.5-10.1); CHLORIDE 100 MMOL/L (99-107); CREATININE 1.13 MG/DL (0.60-1.10); GLUCOSE 97 MG/DL (70-104); POTASSIUM 3.7 MMOL/L (3.5-5.1); SODIUM 141 MMOL/L (135-145); TOTAL CARBON DIOXIDE 39.6 MMOL/L (24-32); eGFR 62 ML/MIN
[2019-05-06 06:00] VITALS: BP 119/81
--- NOTE | 2019-05-06 06:29 | NUR ---
Patient in room PCU 3017. I have received report from Maritza ENRIQUEZ and had the opportunity to ask questions and assume patient care.
--- NOTE | 2019-05-06 06:33 | NUR ---
Patient in room PCU 3017. I have received report from Maritza ENRIQUEZ and had the opportunity to ask questions and assume patient care. Patient asleep in bed and in no acute distress.
--- NOTE | 2019-05-06 06:34 | NUR ---
Problems reprioritized. Patient report given, questions answered & plan of care reviewed with DonnaRN, Nora RN.
[2019-05-06 06:50] LABS: ANISOCYTOSIS 2+; MICROCYTOSIS 1+; PLATELET ESTIMATE NORMAL
[2019-05-06 06:51] LABS: ELLIPTOCYTES FEW; SCHISTOCYTES FEW
[2019-05-06 06:52] LABS: HYPOCHROMASIA 1+
[2019-05-06] MEDS: carvedilol 6.25mg tablet PO SCH ×2 (07:22→19:33)
[2019-05-06] MEDS: pantoprazole 40mg Tablet.DR PO SCH (07:22)
[2019-05-06] MEDS: enoxaparin 40mg/0.4ml syringe SUBCUT SCH (07:24)
[2019-05-06] MEDS: furosemide 40mg/4ml inj IV SCH ×2 (07:25→19:33)
[2019-05-06] MEDS: magnesium hydroxide 30ml (MOM) UD suspension PO SCH ×2 (08:00→19:34)
[2019-05-06 08:47] LABS: OCCULT BLOOD STOOL NEGATIVE (Neg)
[2019-05-06] MEDS: ipratropium/albuterol 3ml nebule NEB PRN (10:40)
[2019-05-06 11:00] VITALS: BP 112/71
[2019-05-06] MEDS: potassium Cl 20 mEq SR tablet PO SCH (11:29)
[2019-05-06] MEDS: morphine 2 MG/ML inj. syringe IV PRN ×2 (13:17→19:32)
[2019-05-06] MEDS: magnesium hydroxide 30ml (MOM) UD suspension PO PRN (13:17)
--- NOTE | 2019-05-06 13:27 | NUR ---
Gave patient 2 doses of 5mg Gillham PO pain meds with no relief. Administered 1mg IV morphine, will continue to monitor pain level.
[2019-05-06 15:00] VITALS: BP 122/60
[2019-05-06 18:00] VITALS: BP 107/65
--- NOTE | 2019-05-06 18:16 | NUR ---
Orientee documentation: I have reviewed and agree with all interventions, assessments performed and documented by ZOE Melendez. Orientee Medication Administration: For this medication-pass time frame, all medication were reviewed, dispensed, administered and documented per hospital policy by ZOE Melendez.
--- NOTE | 2019-05-06 18:16 | NUR ---
Problems reprioritized. Patient report given, questions answered & plan of care reviewed with Alta ENRIQUEZ.
--- NOTE | 2019-05-06 18:16 | NUR ---
Problems reprioritized. Patient report given, questions answered & plan of care reviewed with Alta ENRIQUEZ.
[2019-05-06 23:00] VITALS: BP 147/77
--- NOTE | 2019-05-07 01:25 | NUR ---
pt walked to the restroom in a martinez naked without realized that the camoe and urinal were right next to him. Assisted pt back to bed after he was done using the toilet, pt stated that he did not remember about the camoe. pt was able to calm down and laid down in bed, vittal signs WNL
[2019-05-07 03:00] VITALS: BP 105/70
[2019-05-07] MEDS: morphine 2 MG/ML inj. syringe IV PRN (03:20)
--- NOTE | 2019-05-07 04:15 | NUR ---
pt vomitted out some thick slimy mucus wasnt sure frrm lung or stomach
[2019-05-07] MEDS: HYDROcodone/acetaminophen 5mg/325mg tablet PO PRN ×2 (04:45→10:04)
[2019-05-07 05:59] LABS: BASOPHILS # (AUTO) 0.1 X10'3 (0-0.2); BASOPHILS % (AUTO) 0.7 % (0-1); EOSINOPHILS # (AUTO) 0.1 X10'3 (0-0.9); EOSINOPHILS % (AUTO) 1.3 % (0-6); HEMATOCRIT 32.1 % (42.0-52.0); HEMOGLOBIN 9.9 g/dl (14.0-17.9); LYMPHOCYTES % (AUTO) 13.4 % (21-51); MEAN CORPUSCULAR HGB CONC 30.7 g/dL (33.0-36.5); MEAN CORPUSCULAR VOLUME 81.4 FL (78-98); MEAN PLATELET VOLUME 6.9 FL (7.4-10.4); MONOCYTES # (AUTO) 1.7 X10'3 (0-0.9); MONOCYTES % (AUTO) 22.5 % (2-12); NEUTROPHILS # (AUTO) 4.7 X10'3 (1.8-7.7); NEUTROPHILS % (AUTO) 62.1 % (42-75); PLATELET COUNT 184 X10'3 (140-440); RED BLOOD COUNT 3.94 X10'6 (4.70-6.10); RED CELL DISTRIBUTION WIDTH 19.2 % (11.5-14.5); WHITE BLOOD COUNT 7.5 X10'3 (4.5-11.0)
[2019-05-07 06:11] LABS: ALBUMIN 3.5 G/DL (3.4-5.0); ANION GAP 1 (8-16); BLOOD UREA NITROGEN 18 MG/DL (7-18); BUN/CREATININE RATIO 19.1 (5.4-32.0); CALCIUM 8.4 MG/DL (8.5-10.1); CHLORIDE 99 MMOL/L (99-107); CREATININE 0.94 MG/DL (0.60-1.10); GLUCOSE 108 MG/DL (70-104); POTASSIUM 4.3 MMOL/L (3.5-5.1); SODIUM 142 MMOL/L (135-145); eGFR 77 ML/MIN
[2019-05-07 06:16] LABS: TOTAL CARBON DIOXIDE 41.6 MMOL/L (24-32)
[2019-05-07 06:47] LABS: TOTAL CELLS COUNTED 100
[2019-05-07 06:48] LABS: ANISOCYTOSIS 2+; HYPOCHROMASIA 1+; LARGE PLATELETS FEW; PLATELET ESTIMATE NORMAL
[2019-05-07 06:49] LABS: ELLIPTOCYTES 1+
--- NOTE | 2019-05-07 06:49 | NUR ---
Problems reprioritized. Patient report given, questions answered & plan of care reviewed with Serena ENRIQUEZ.
[2019-05-07 07:13] VITALS: BP 106/68
--- NOTE | 2019-05-07 07:25 | NUR ---
Paged Dr Harrison about critical CO2 of 41.6, awaiting call back.
--- NOTE | 2019-05-07 07:26 | NUR ---
Patient in room PCU 3017. I have received report from ZOE Holm and had the opportunity to ask questions and assume patient care.
[2019-05-07] MEDS: magnesium hydroxide 30ml (MOM) UD suspension PO SCH (08:00)
[2019-05-07] MEDS ORDERED: HYDR-3972 PO (08:18)
[2019-05-07] MEDS ORDERED: FURO40TA4 PO (08:18)
--- NOTE | 2019-05-07 08:20 | NUR ---
Dr. Harrison aware of CO2 of 41.6 no new orders at this time.
[2019-05-07] MEDS: enoxaparin 40mg/0.4ml syringe SUBCUT SCH (08:22)
[2019-05-07] MEDS: potassium Cl 20 mEq SR tablet PO SCH (08:23)
[2019-05-07] MEDS: pantoprazole 40mg Tablet.DR PO SCH (08:23)
[2019-05-07] MEDS: furosemide 40mg/4ml inj IV SCH (08:25)
[2019-05-07] MEDS: carvedilol 6.25mg tablet PO SCH (08:26)
[2019-05-07 11:00] VITALS: BP 103/54
--- NOTE | 2019-05-07 11:56 | NUR ---
Patient stable and appropriate for discharge, IV taken out, tele taken off, education given, sent home with all belonging taken to lobby in a wheelchair to awaiting car where will to take patient home
[2019-05-07] MEDS ORDERED: FLU VACC QS2019-20 36MOS UP/PF 60 MCG/0.5 ML SYRINGE IMVAC ONE (12:35)
== END 2019-05-07 11:57 | disposition home health service (06) | DRG 291 ==
LOC: ER 14:05 → ED HOLD 17:47 → PCU 3S 19:00
PROVIDERS: ADMIT Internal Medicine; ATTEND Internal Medicine
DX: I13.0 Hypertensive heart and chronic kidney disease with heart failure and stage 1 through stage 4 chronic kidney disease, or unspecified chronic kidney disease (principal); J96.21 Acute and chronic respiratory failure with hypoxia; J18.1 Lobar pneumonia, unspecified organism; D62 Acute posthemorrhagic anemia; N17.9 Acute kidney failure, unspecified; I50.813 Acute on chronic right heart failure; I25.10 Atherosclerotic heart disease of native coronary artery without angina pectoris; Z96.649 Presence of unspecified artificial hip joint; G89.29 Other chronic pain; M54.9 Dorsalgia, unspecified; I27.81 Cor pulmonale (chronic); I48.91 Unspecified atrial fibrillation; J43.9 Emphysema, unspecified; K21.9 Gastro-esophageal reflux disease without esophagitis; N18.3 Chronic kidney disease, stage 3 (moderate); Z87.11 Personal history of peptic ulcer disease; Z87.891 Personal history of nicotine dependence; I25.2 Old myocardial infarction; Z79.899 Other long term (current) drug therapy; Z23 Encounter for immunization
CPT/HCPCS: 36415; 71046; 74018; 80048; 80053; 82272; 83605; 83880; 84484; 85025; 87040; 87081; 93005; 93306; 94640; 94760; 96365; 96375; 97110; 97112; 97116; 97530; 99285; G0378; J0696; J1170; J1650; J1940; J2270; J2930; Q2037

== ENCOUNTER 2019-05-16 17:19 | Inpatient (IN) | payer MEDICARE, BC ==
[~2019-05-16] VITALS: Ht 182.9 cm; Wt 90.9 kg
[~2019-05-16 17:19] MED LIST changes: -CARV-50 PO; +CARV6.253 PO; -CEFD300C3 PO; +HYDR-3972 PO; +IPRA3AMP31 PO; -IPRA3AMP9 NEB; +MAGN400O6 PO; -OXYC-511 PO; -PANT40SU2 PO; -ROPI0.2540 PO; +atropine 0.1mg/ml 10ml syringe ONE; +calcium chloride 100 MG/1 ML inj IV ONE; +epiNEPHrine 0.1mg/ml 10ml syringe ONE; +rocuronium 10mg/ml inj IV ONE; +sodium bicarbonate (8.4%) 1 mEq/ml syringe ONE
[2019-05-16] MEDS ORDERED: normal saline 1000ML IV soln IV ONE (17:50)
[2019-05-16 18:22] LABS: BASOPHILS # (AUTO) 0.1 X10'3 (0-0.2); BASOPHILS % (AUTO) 1.3 % (0-1); EOSINOPHILS % (AUTO) 0.3 % (0-6); HEMATOCRIT 33.8 % (42.0-52.0); HEMOGLOBIN 10.4 g/dl (14.0-17.9); LYMPHOCYTES # (AUTO) 0.7 X10'3 (1.1-4.8); LYMPHOCYTES % (AUTO) 8.4 % (21-51); MEAN CORPUSCULAR HGB CONC 30.7 g/dL (33.0-36.5); MEAN CORPUSCULAR VOLUME 81.4 FL (78-98); MEAN PLATELET VOLUME 7.5 FL (7.4-10.4); MONOCYTES # (AUTO) 1.8 X10'3 (0-0.9); NEUTROPHILS # (AUTO) 5.6 X10'3 (1.8-7.7); PLATELET COUNT 197 X10'3 (140-440); RED BLOOD COUNT 4.15 X10'6 (4.70-6.10); RED CELL DISTRIBUTION WIDTH 19.9 % (11.5-14.5); WHITE BLOOD COUNT 8.2 X10'3 (4.5-11.0)
[2019-05-16 18:34] LABS: ALANINE AMINOTRANSFERASE 19 U/L (12-78); ALBUMIN 3.5 G/DL (3.4-5.0); ALBUMIN/GLOBULIN RATIO 1.2 (1.1-1.5); ALKALINE PHOSPHATASE 75 IU/L (46-116); ANION GAP 3 (8-16); ASPARTATE AMINO TRANSFERASE 16 U/L (10-37); BILIRUBIN,TOTAL 0.7 MG/DL (0.1-1.0); BLOOD UREA NITROGEN 44 MG/DL (7-18); BUN/CREATININE RATIO 18.6 (5.4-32.0); CALCIUM 8.7 MG/DL (8.5-10.1); CHLORIDE 101 MMOL/L (99-107); CREATININE 2.36 MG/DL (0.60-1.10); GLUCOSE 82 MG/DL (70-104); PARTIAL THROMBOPLASTIN TIME 34 SECONDS (22-32); POTASSIUM 5.9 MMOL/L (3.5-5.1); SODIUM 139 MMOL/L (135-145); TOTAL CARBON DIOXIDE 34.6 MMOL/L (24-32); TOTAL PROTEIN 6.4 G/DL (6.4-8.2); eGFR 27 ML/MIN
[2019-05-16 18:43] LABS: MAGNESIUM 2.7 MG/DL (1.5-2.4); TROPONIN I < 0.04 NG/ML (0.0-0.05)
[2019-05-16] MEDS ORDERED: normal saline 1000ML IV soln IVB ONE (18:50)
[2019-05-16] MEDS ORDERED: morphine 4 MG/ML inj SYRINge IV ONE (18:50)
[2019-05-16] MEDS ORDERED: CefTRIAXone 2gm/D5W 50ml 50 ML IV ONE (18:50)
[2019-05-16] MEDS ORDERED: dextrose 50%-water 50ml dispensing syringe IV ONE ×2 (18:55→21:01)
[2019-05-16] MEDS ORDERED: ipratropium/albuterol 3ml nebule NEB ONE (18:55)
[2019-05-16] MEDS ORDERED: insulin regular, human 10 units/0.1 ml syringe IV ONE ×2 (18:55→19:45)
[2019-05-16] MEDS ORDERED: magnesium hydroxide 30ml (MOM) UD suspension PO PRN (19:25)
[2019-05-16] MEDS ORDERED: mag hydrox/Alum hydrox/simeth 30ml oral suspension PO PRN (19:25)
[2019-05-16] MEDS ORDERED: morphine 2 MG/ML inj. syringe IV PRN (19:25)
[2019-05-16] MEDS ORDERED: acetaminophen 325mg tablet PO PRN ×2 (19:25)
[2019-05-16] MEDS ORDERED: ondansetron/PF 4mg/2ml inj IV PRN (19:25)
[2019-05-16] MEDS ORDERED: HYDROcodone/acetaminophen 5mg/325mg tablet PO PRN (19:25)
[2019-05-16] MEDS: heparin, porcine 5000 units/ml vial SQ SCH (19:53)
--- NOTE | 2019-05-16 20:00 | NUR ---
PT POTASSIUM 5.9. DEXTROSE AND 5 UNITS INSULIN ORDERED FOR BG OF 62 TO DECREASE [K]. MD AWARE.
[2019-05-16] MEDS ORDERED: PRED20TA PO (20:23)
[2019-05-16] MEDS ORDERED: ONDA4TAB12 PO (20:23)
[2019-05-16] MEDS ORDERED: BUSP5TAB3 PO (20:23)
[2019-05-16] MEDS ORDERED: ESCI5TAB12 PO (20:23)
[2019-05-16] MEDS ORDERED: FLUT1BLS4 PO (20:23)
--- NOTE | 2019-05-16 20:27 | NUR ---
BG 94
[2019-05-16 20:39] LABS: ANISOCYTOSIS 2+; PLATELET ESTIMATE NORMAL; TOTAL CELLS COUNTED 100
[2019-05-16 20:40] LABS: ELLIPTOCYTES 1+; HYPOCHROMASIA 1+
[2019-05-16 20:41] LABS: LARGE PLATELETS FEW
--- NOTE | 2019-05-16 21:19 | NUR ---
PT BLOOD GLUCOSE 54. DEX [address] ER A[address] RICHARD AT BEDSIDE, ORDERED D5 1/2 NS AT 75 ML.HR.
[2019-05-16] MEDS ORDERED: dextrose 5%-1/2 normal saline 1,000 ML IV SCH (21:20)
[2019-05-16] MEDS ORDERED: dextrose 50%-water 50ml dispensing syringe IV STA (21:20)
--- NOTE | 2019-05-16 21:39 | NUR ---
BG 121
--- NOTE | 2019-05-16 21:45 | NUR ---
Received report from ZOE Hughes, in ED. Pt presented with RENAN, SOB, and abdominal pain. His blood sugar were as follow: 94, 57, and 121. Pt is receiving D5-NS at 75/ml hr. and got a 2 mg morphine. Upon arrival to the PCU unit the pt is alert and oriented X3 due to pain which patient rated at 8/10. He is mouth breathing and wearing a simple mask receiving 8L of oxygen. Pt medical history: A-Fib, CAD, HTN, MO, bronchitis, COPD, Emphysema, pneumonia, GERD, Peptic Ulcer, bowel obstruction
[2019-05-16 22:00] VITALS: BP 98/67
[2019-05-16] MEDS: morphine 2 MG/ML inj. syringe IV PRN (22:16)
[2019-05-17] VITALS (14 sets, daily range): BP systolic 99–144; BP diastolic 62–94
[2019-05-17] MEDS: HYDROcodone/acetaminophen 10/325mg tab PO PRN ×3 (00:30→11:51)
[2019-05-17] MEDS: morphine 2 MG/ML inj. syringe IV PRN (03:03)
[2019-05-17 05:23] LABS: BASOPHILS % (AUTO) 0.4 % (0-1); EOSINOPHILS % (AUTO) 0.1 % (0-6); HEMATOCRIT 35.1 % (42.0-52.0); HEMOGLOBIN 10.6 g/dl (14.0-17.9); LYMPHOCYTES # (AUTO) 0.6 X10'3 (1.1-4.8); MEAN CORPUSCULAR HEMOGLOBIN 25.1 PG (27.0-31.0); MEAN CORPUSCULAR HGB CONC 30.3 g/dL (33.0-36.5); MEAN PLATELET VOLUME 7.7 FL (7.4-10.4); MONOCYTES # (AUTO) 1.7 X10'3 (0-0.9); MONOCYTES % (AUTO) 21.4 % (2-12); NEUTROPHILS # (AUTO) 5.7 X10'3 (1.8-7.7); NEUTROPHILS % (AUTO) 70.1 % (42-75); PLATELET COUNT 214 X10'3 (140-440); RED BLOOD COUNT 4.23 X10'6 (4.70-6.10); RED CELL DISTRIBUTION WIDTH 20.2 % (11.5-14.5); WHITE BLOOD COUNT 8.1 X10'3 (4.5-11.0)
[2019-05-17 05:34] LABS: ALBUMIN 3.4 G/DL (3.4-5.0); ANION GAP 3 (8-16); BLOOD UREA NITROGEN 48 MG/DL (7-18); BUN/CREATININE RATIO 19.2 (5.4-32.0); CALCIUM 8.2 MG/DL (8.5-10.1); CHLORIDE 102 MMOL/L (99-107); GLUCOSE 107 MG/DL (70-104); SODIUM 139 MMOL/L (135-145); TOTAL CARBON DIOXIDE 34.4 MMOL/L (24-32); eGFR 25 ML/MIN
--- NOTE | 2019-05-17 05:35 | NUR ---
P attempted to reconcile medication with patient, but patient is not alert at this time. I will try later when patient is alert and oriented
--- NOTE | 2019-05-17 05:47 | NUR ---
Page Sent PAGER ID: [phone] MESSAGE: PEYTON: Elliot Melendez room # 318-B potassium is 6.0 Please advise. Thank you Wali
[2019-05-17] MEDS ORDERED: sodium polystyrene sulfonate 15gm/60ml oral suspension PO ONE (06:05)
[2019-05-17] MEDS ORDERED: insulin regular, human 10 units/0.1 ml syringe IV ONE (06:05)
[2019-05-17] MEDS ORDERED: dextrose 50%-water 50ml dispensing syringe IV ONE (06:05)
[2019-05-17] MEDS ORDERED: calcium gluconate inj. 1 GM in normal saline 100ml IV soln 90 ML IV ONE (06:05)
[2019-05-17] MEDS ORDERED: sodium bicarbonate (8.4%) 1 mEq/ml syringe IV ONE (06:05)
--- NOTE | 2019-05-17 06:18 | NUR ---
Patient in room PCU 3018. I have received report from ZOE Keyes and had the opportunity to ask questions and assume patient care.
[2019-05-17] MEDS ORDERED: sodium bicarbonate (8.4%) inj. 1 MEQ/ML ML IV ONE ×2 (06:20→07:10)
--- NOTE | 2019-05-17 06:30 | NUR ---
Problems reprioritized. Patient report given, questions answered & plan of care reviewed with ZOE Briones. Informed her that patient's potassium was 6.0. Caitlin, sterilizer machine operator, spoke to Dr. Harrison and she placed all orders.
[2019-05-17 07:07] LABS: ANISOCYTOSIS 3+; ELLIPTOCYTES FEW; MICROCYTOSIS 1+; PLATELET ESTIMATE NORMAL; POIKILOCYTOSIS FEW; POLYCHROMASIA FEW
[2019-05-17] MEDS: heparin, porcine 5000 units/ml vial SQ SCH ×2 (08:00→20:00)
[2019-05-17] MEDS ORDERED: NORepinephrine 8 MG in NS 250 ML BAG (32 mcg/ml) IV ONE (08:00)
[2019-05-17] MEDS ORDERED: DOBUTamine-DoBUTrex 500mg/D5W 250 ML IV ONE (08:40)
[2019-05-17] MEDS ORDERED: CISatracurium **Bolus** 2 mg/ml inj IV PRN (08:40)
[2019-05-17 08:51] LABS: ABG BASE EXCESS -4.1 mmol/L (-2.0-3.0); ABG HCO3 24.9 mmol/L (22.0-26.0); ABG OXYGEN SATURATION 82.3 % (95-98); ABG PCO2 (T) 65.5 mmHg (35.0-45.0); ABG PH (T) 7.198 (7.350-7.450); ABG PO2 (T) 53.1 mmHg (83-108); ALLEN'S TEST Positive; FCOHb 0.7 % (0.5-1.5); FMetHb 0.1 % (0.3-1.12); FO2Hb 81.6 % (94-100); MINUTE VOLUME 8 L/min; PEEP 5 cm H2O; RESPIRATORY RATE 18 b/min; RESPIRATORY RATE (OBSERVED) 18 b/min; TIDAL VOLUME 400 mL; TOTAL HEMOGLOBIN 11.8 G/dl (14.0-17.9)
[2019-05-17] MEDS ORDERED: vasopressin inj. 20 UNIT in normal saline 100ml IV soln 39 ML IV SCH (09:05)
--- NOTE | 2019-05-17 09:05 | NUR ---
Aid came and asked for help in room 3018b. Went to bedside and found patient unresponsive with no pulse. Began chest compressions and called code at 0713. Code team arrived to bedside. CPR continued, patient was intubated by ER MD, Central line was placed by ER MD. Patient pulse returned and BP was improved. Patient was transferred to ICU by RN and respiratory.
[2019-05-17] MEDS ORDERED: epiNEPHrine inj 5 MG in normal saline 250ml IV soln 245 ML IV SCH (09:30)
[2019-05-17] MEDS: DOBUTamine-DoBUTrex 500mg/D5W 250 ML IV SCH ×2 (09:30→17:50)
[2019-05-17] MEDS ORDERED: vancomycin/NS 1 GM ADD-VANTAGE 250 ML IV ONE (09:35)
[2019-05-17 09:54] LABS: ALANINE AMINOTRANSFERASE 15 U/L (12-78); ALBUMIN 2.6 G/DL (3.4-5.0); ALBUMIN/GLOBULIN RATIO 1.1 (1.1-1.5); ALKALINE PHOSPHATASE 67 IU/L (46-116); ANION GAP 10 (8-16); ASPARTATE AMINO TRANSFERASE 26 U/L (10-37); BILIRUBIN,TOTAL 0.6 MG/DL (0.1-1.0); BLOOD UREA NITROGEN 45 MG/DL (7-18); BUN/CREATININE RATIO 18.6 (5.4-32.0); CALCIUM 8.3 MG/DL (8.5-10.1); CHLORIDE 106 MMOL/L (99-107); CREATININE 2.42 MG/DL (0.60-1.10); GLUCOSE 83 MG/DL (70-104); MAGNESIUM 2.7 MG/DL (1.5-2.4); PHOSPHORUS 7.8 MG/DL (2.3-4.5); POTASSIUM 5.8 MMOL/L (3.5-5.1); SODIUM 144 MMOL/L (135-145); TOTAL CARBON DIOXIDE 27.6 MMOL/L (24-32); eGFR 26 ML/MIN
[2019-05-17] MEDS ORDERED: heparin 10,000 units/1 ML INJ IV ONE ×2 (10:20→10:30)
[2019-05-17] MEDS ORDERED: sodium bicarbonate (8.4%) inj. 75 MEQ in sodium chloride 0.45% 500ml 500 ML IV SCH (10:30)
[2019-05-17] MEDS: epiNEPHrine inj 5 MG, calcium chloride inj. 1,000 MG in normal saline 250ml IV soln 250 ML IV PRN ×2 (10:54→20:38)
[2019-05-17] MEDS ORDERED: sodium bicarbonate (8.4%) inj. 75 MEQ in dextrose 5% water 500ml 500 ML IV SCH (11:15)
[2019-05-17] MEDS: cefepime 1GM in D5W 50mL 50 ML IV SCH (11:36)
[2019-05-17 11:42] LABS: PARTIAL THROMBOPLASTIN TIME 36 SECONDS (22-32)
[2019-05-17 11:50] LABS: BASOPHILS # (AUTO) 0.1 X10'3 (0-0.2); BASOPHILS % (AUTO) 0.3 % (0-1); EOSINOPHILS % (AUTO) 0.1 % (0-6); HEMOGLOBIN 10.6 g/dl (14.0-17.9); LYMPHOCYTES # (AUTO) 0.8 X10'3 (1.1-4.8); LYMPHOCYTES % (AUTO) 3.5 % (21-51); MEAN CORPUSCULAR HEMOGLOBIN 24.7 PG (27.0-31.0); MEAN CORPUSCULAR HGB CONC 29.3 g/dL (33.0-36.5); MEAN CORPUSCULAR VOLUME 84.3 FL (78-98); MEAN PLATELET VOLUME 7.8 FL (7.4-10.4); MONOCYTES # (AUTO) 1.5 X10'3 (0-0.9); MONOCYTES % (AUTO) 6.5 % (2-12); NEUTROPHILS # (AUTO) 20.4 X10'3 (1.8-7.7); NEUTROPHILS % (AUTO) 89.6 % (42-75); PLATELET COUNT 241 X10'3 (140-440); RED BLOOD COUNT 4.27 X10'6 (4.70-6.10); RED CELL DISTRIBUTION WIDTH 20.2 % (11.5-14.5); WHITE BLOOD COUNT 22.7 X10'3 (4.5-11.0)
[2019-05-17] MEDS ORDERED: sodium bicarbonate (8.4%) inj. 50 MEQ in dextrose 5%-water 1,000 ML IV SCH (12:05)
[2019-05-17] MEDS: midazolam 100mg in NS 100ml 100 ML IV PRN (12:17)
[2019-05-17] MEDS: FENTANYL-0.9 % NACL/PF 100 ML IV PRN (12:19)
[2019-05-17] MEDS: sodium bicarbonate (8.4%) inj. 100 MEQ in dextrose 5%-water 1,000 ML IV SCH ×2 (12:21→12:47)
[2019-05-17] MEDS: NORepinephrine 8mg/ 250ml NS 250 ML IV SCH (12:30)
[2019-05-17] MEDS: pantoprazole 40 MG vial IV SCH (12:35)
[2019-05-17] MEDS: levoFLOXACIN-Levaquin 250mg/D5 50 ML IV SCH (13:12)
[2019-05-17] MEDS ORDERED: HYDR-4353 PO (13:28)
[2019-05-17] MEDS ORDERED: FURO40TA4 PO (13:28)
[2019-05-17] MEDS ORDERED: POTA20TA10 PO (13:31)
[2019-05-17] MEDS ORDERED: LISI2.5T2 PO (13:31)
[2019-05-17 13:44] LABS: ANISOCYTOSIS 3+; HYPOCHROMASIA 2+; PLATELET ESTIMATE NORMAL; POLYCHROMASIA 1+
[2019-05-17 13:45] LABS: ACANTHOCYTES FEW; BURR CELLS FEW; ELLIPTOCYTES 1+; SCHISTOCYTES FEW; TEAR DROP CELLS FEW
[2019-05-17] MEDS: CISatracurium besylate inj. 100 MG in dextrose 5%-water 50ml 40 ML IV PRN (14:18)
[2019-05-17] MEDS: heparin 25,000 UNIT/250ml bag 250 ML IV SCH (14:31)
[2019-05-17] MEDS ORDERED: dextrose 50%-water 50ml dispensing syringe IV PRN (14:40)
[2019-05-17] MEDS: insulin regular, human inj. 100 UNITS in normal saline 100ml IV soln 100 ML IV SCH ×4 (14:40→21:07)
[2019-05-17 16:04] LABS: CREATINE KINASE 72 U/L (39-308); TROPONIN I 0.06 NG/ML (0.0-0.05)
--- NOTE | 2019-05-17 16:20 | NUR ---
0845 patient arrived, unresponsive, intubated, blood in mouth and ET tube. Central line to right groin, piv to right wrist. cursory assessment, poor color, lungs diminished, MD at bedside. ET tube 03/16 at the teeth [id number] Pt has no palpable heartbeat, CPR initiated, see code sheet. Rosc achieved approx 15 minutes after code started.Art line attempted in left groin, appears venous.Pt on vasopressin, levophed, epical, dobutamine. No response. Family aware of patient status. unable to get an accurate spo2 at this time. On 100 FIO2. 1430- Core temp at 33.0. 24 hour clock started. artic sun cooling in place, nimbex on, sedation in place. Family home, They took all possessions including cell phone and upper dentures. 1500 EKG done, afib, occasional paced beats, RBBB. 1600- Continue to wean levo as able. Levo at 8mcg. Decent wave form to SpO2 achieved currently at 98%.
[2019-05-17] MEDS: insulin Lispro (HumaLOG) vial - multi-dose SQ SCH (18:00)
--- NOTE | 2019-05-17 18:40 | NUR ---
Patient in room ICU 2040. I have received report from ZOE Dunham and had the opportunity to ask questions and assume patient care.
[2019-05-17 19:46] LABS: ABG HCO3 29.7 mmol/L (22.0-26.0); ABG OXYGEN SATURATION 85.7 % (95-98); ABG PCO2 (T) 53.2 mmHg (35.0-45.0); ABG PH (T) 7.347 (7.350-7.450); ABG PO2 (T) 41.8 mmHg (83-108); ALLEN'S TEST Positive; FCOHb 0.4 % (0.5-1.5); FMetHb 0.3 % (0.3-1.12); FO2Hb 85.1 % (94-100); MINUTE VOLUME 8 L/min; PATIENT TEMPERATURE 33.5; PEEP 8 cm H2O; RESPIRATORY RATE 18 b/min; RESPIRATORY RATE (OBSERVED) 18 b/min; TIDAL VOLUME 400 mL; TOTAL HEMOGLOBIN 11.4 G/dl (14.0-17.9)
[2019-05-17 20:52] LABS: ANION GAP 7 (8-16); BLOOD UREA NITROGEN 52 MG/DL (7-18); BUN/CREATININE RATIO 17.9 (5.4-32.0); CALCIUM 9.2 MG/DL (8.5-10.1); CHLORIDE 102 MMOL/L (99-107); CKMB RELATIVE INDEX 15.2 RATIO (0-2.5); CREATINE KINASE 204 U/L (39-308); GLUCOSE 240 MG/DL (70-104); MAGNESIUM 2.5 MG/DL (1.5-2.4); POTASSIUM 4.9 MMOL/L (3.5-5.1); SODIUM 141 MMOL/L (135-145); TOTAL CARBON DIOXIDE 32.1 MMOL/L (24-32); eGFR 21 ML/MIN
[2019-05-17 20:56] LABS: TROPONIN I 2.11 NG/ML (0.0-0.05)
[2019-05-17 21:05] LABS: ABG BASE EXCESS 2.8 mmol/L (-2.0-3.0); ABG HCO3 27.9 mmol/L (22.0-26.0); ABG OXYGEN SATURATION 96.9 % (95-98); ABG PCO2 (T) 38.5 mmHg (35.0-45.0); ABG PH (T) 7.463 (7.350-7.450); ABG PO2 (T) 69.1 mmHg (83-108); ALLEN'S TEST Positive; FCOHb 0.5 % (0.5-1.5); FMetHb 0.3 % (0.3-1.12); FO2Hb 96.1 % (94-100); MINUTE VOLUME 9 L/min; PATIENT TEMPERATURE 33.4; PEEP 8 cm H2O; RESPIRATORY RATE 18 b/min; RESPIRATORY RATE (OBSERVED) 18 b/min; TIDAL VOLUME 500 mL; TOTAL HEMOGLOBIN 11.3 G/dl (14.0-17.9)
[2019-05-17 21:34] LABS: PARTIAL THROMBOPLASTIN TIME 87 SECONDS (22-32)
[2019-05-17 21:39] LABS: PHOSPHORUS 5.7 MG/DL (2.3-4.5)
[2019-05-18] VITALS (24 sets, daily range): BP systolic 78–130; BP diastolic 50–81
[2019-05-18] MEDS: CISatracurium besylate inj. 100 MG in dextrose 5%-water 50ml 40 ML IV PRN ×3 (01:03→17:19)
[2019-05-18] MEDS: FENTANYL-0.9 % NACL/PF 100 ML IV PRN (01:55)
[2019-05-18] MEDS: sodium bicarbonate (8.4%) inj. 100 MEQ in dextrose 5%-water 1,000 ML IV SCH (01:56)
[2019-05-18] MEDS: midazolam 100mg in NS 100ml 100 ML IV PRN (01:56)
[2019-05-18 02:44] LABS: PARTIAL THROMBOPLASTIN TIME 90 SECONDS (22-32)
[2019-05-18 02:55] LABS: ALANINE AMINOTRANSFERASE 30 U/L (12-78); ALBUMIN 2.5 G/DL (3.4-5.0); ALBUMIN/GLOBULIN RATIO 1.1 (1.1-1.5); ALKALINE PHOSPHATASE 62 IU/L (46-116); ANION GAP 5 (8-16); ASPARTATE AMINO TRANSFERASE 46 U/L (10-37); BILIRUBIN,TOTAL 1.5 MG/DL (0.1-1.0); BLOOD UREA NITROGEN 55 MG/DL (7-18); BUN/CREATININE RATIO 19.9 (5.4-32.0); CALCIUM 8.8 MG/DL (8.5-10.1); CHLORIDE 104 MMOL/L (99-107); CKMB RELATIVE INDEX 19.3 RATIO (0-2.5); CREATINE KINASE 139 U/L (39-308); CREATININE 2.77 MG/DL (0.60-1.10); GLUCOSE 186 MG/DL (70-104); MAGNESIUM 2.3 MG/DL (1.5-2.4); PHOSPHORUS 3.7 MG/DL (2.3-4.5); SODIUM 142 MMOL/L (135-145); TOTAL CARBON DIOXIDE 32.6 MMOL/L (24-32); TOTAL PROTEIN 4.8 G/DL (6.4-8.2); eGFR 22 ML/MIN
[2019-05-18 02:56] LABS: BASOPHILS % (AUTO) 0.1 % (0-1); EOSINOPHILS % (AUTO) 0 % (0-6); HEMATOCRIT 29.8 % (42.0-52.0); HEMOGLOBIN 9.2 g/dl (14.0-17.9); LYMPHOCYTES # (AUTO) 0.3 X10'3 (1.1-4.8); LYMPHOCYTES % (AUTO) 2.4 % (21-51); MEAN CORPUSCULAR HEMOGLOBIN 24.6 PG (27.0-31.0); MEAN CORPUSCULAR HGB CONC 30.9 g/dL (33.0-36.5); MEAN CORPUSCULAR VOLUME 79.5 FL (78-98); MEAN PLATELET VOLUME 6.4 FL (7.4-10.4); MONOCYTES # (AUTO) 0.9 X10'3 (0-0.9); MONOCYTES % (AUTO) 6.7 % (2-12); NEUTROPHILS # (AUTO) 12.1 X10'3 (1.8-7.7); NEUTROPHILS % (AUTO) 90.8 % (42-75); PLATELET COUNT 132 X10'3 (140-440); RED BLOOD COUNT 3.74 X10'6 (4.70-6.10); RED CELL DISTRIBUTION WIDTH 19.8 % (11.5-14.5); WHITE BLOOD COUNT 13.3 X10'3 (4.5-11.0)
[2019-05-18 02:57] LABS: TROPONIN I 1.72 NG/ML (0.0-0.05)
[2019-05-18 03:01] LABS: ABG BASE EXCESS 6.7 mmol/L (-2.0-3.0); ABG HCO3 30.5 mmol/L (22.0-26.0); ABG OXYGEN SATURATION 98.9 % (95-98); ABG PCO2 (T) 34.2 mmHg (35.0-45.0); ABG PH (T) 7.554 (7.350-7.450); ABG PO2 (T) 119.6 mmHg (83-108); ALLEN'S TEST Positive; FCOHb 0.3 % (0.5-1.5); FMetHb 0.2 % (0.3-1.12); FO2Hb 98.4 % (94-100); PEEP 8 cm H2O; RESPIRATORY RATE 16 b/min; RESPIRATORY RATE (OBSERVED) 16 b/min; TIDAL VOLUME 500 mL; TOTAL HEMOGLOBIN 10.3 G/dl (14.0-17.9)
[2019-05-18 04:51] LABS: ANISOCYTOSIS 2+; MICROCYTOSIS 1+; PLATELET ESTIMATE DECREASED; POLYCHROMASIA 1+
[2019-05-18 04:52] LABS: ELLIPTOCYTES 1+; TEAR DROP CELLS 1+
--- NOTE | 2019-05-18 06:30 | NUR ---
Problems reprioritized. Patient report given, questions answered & plan of care reviewed with ZOE Dunham.
--- NOTE | 2019-05-18 06:39 | NUR ---
Patient in room ICU 2040. I have received report from Page and had the opportunity to ask questions and assume patient care.
[2019-05-18] MEDS: pantoprazole 40 MG vial IV SCH (07:19)
[2019-05-18] MEDS: levoFLOXACIN-Levaquin 250mg/D5 50 ML IV SCH (07:20)
[2019-05-18] MEDS ORDERED: normal saline 1000ml 1,000 ML IV SCH (07:50)
[2019-05-18] MEDS ORDERED: vancomycin/NS 1 GM ADD-VANTAGE 250 ML IV SCH (08:00)
[2019-05-18] MEDS: heparin, porcine 5000 units/ml vial SQ SCH (08:00)
[2019-05-18 08:35] LABS: ABG BASE EXCESS 8.2 mmol/L (-2.0-3.0); ABG HCO3 32.7 mmol/L (22.0-26.0); ABG OXYGEN SATURATION 93.1 % (95-98); ABG PCO2 (T) 38.2 mmHg (35.0-45.0); ABG PH (T) 7.536 (7.350-7.450); ABG PO2 (T) 49.1 mmHg (83-108); ALLEN'S TEST Positive; FCOHb 0.2 % (0.5-1.5); FMetHb 0.2 % (0.3-1.12); FO2Hb 92.7 % (94-100); MINUTE VOLUME 7 L/min; PATIENT TEMPERATURE 33.2; PEEP 8 cm H2O; RESPIRATORY RATE 14 b/min; RESPIRATORY RATE (OBSERVED) 14 b/min; TIDAL VOLUME 500 mL; TOTAL HEMOGLOBIN 10.6 G/dl (14.0-17.9)
[2019-05-18] MEDS: cefepime 1GM in D5W 50mL 50 ML IV SCH (08:36)
[2019-05-18 08:41] LABS: ALBUMIN 2.5 G/DL (3.4-5.0); ANION GAP 6 (8-16); BLOOD UREA NITROGEN 53 MG/DL (7-18); BUN/CREATININE RATIO 20.1 (5.4-32.0); CALCIUM 8.5 MG/DL (8.5-10.1); CHLORIDE 103 MMOL/L (99-107); CREATININE 2.64 MG/DL (0.60-1.10); GLUCOSE 111 MG/DL (70-104); MAGNESIUM 2.3 MG/DL (1.5-2.4); PHOSPHORUS 3.8 MG/DL (2.3-4.5); SODIUM 142 MMOL/L (135-145); TOTAL CARBON DIOXIDE 33.1 MMOL/L (24-32); eGFR 23 ML/MIN
[2019-05-18 08:54] LABS: CKMB RELATIVE INDEX 21.3 RATIO (0-2.5)
[2019-05-18] MEDS: insulin Lispro (HumaLOG) vial - multi-dose SQ SCH ×3 (09:00→18:00)
[2019-05-18 09:04] LABS: TROPONIN I 1.4 NG/ML (0.0-0.05)
[2019-05-18] MEDS: DOBUTamine-DoBUTrex 500mg/D5W 250 ML IV SCH ×2 (09:04→10:43)
[2019-05-18] MEDS ORDERED: furosemide 20 MG/2 ML vial IV ONE (09:25)
[2019-05-18] MEDS ORDERED: SINCALIDE IV ONE (09:30)
[2019-05-18] MEDS ORDERED: NORMAL SALINE IV ONE (09:30)
[2019-05-18] MEDS: dextrose 5%-water 1,000 ML IV SCH ×2 (09:37→23:12)
[2019-05-18] MEDS: VANCOmycin 1250MG/NS 250ml Bag 250 ML IV SCH (10:26)
[2019-05-18 10:49] LABS: PARTIAL THROMBOPLASTIN TIME 73 SECONDS (22-32)
--- NOTE | 2019-05-18 11:06 | NUR ---
0900-Picc nurse here. Placed 20g PIV to bilat lower arms. 0945- Woc rounded for low huma score, replaced artic sun wraps, padded where needed, optifoam placed to coccyx 1000- Rounds completed- serum HCO3 32.6- switch to D5W at 70hr (need the D5 for blood glucose). Carotid ultrasound today, MD may place arterial line, Rutanet to interrogate patients pacemaker. Plan is for Head CT, HIDA scan (cholecystitis), EEG, possible thoracentesis bilateral for 05/19/19, after patient rewarmed. Troponin trending down, WBC down, vasopressin and epical dc'd, wean pressors as able. FIO2 currently at 100% as last PO2 on ABG was 49. Patient fluid positive, edema present generally speaking and +4 at penis. Lasix TID ordered.
--- NOTE | 2019-05-18 11:17 | NUR ---
1120- Contacted by [facility] (monica) plan is to send out a rep either today or tomorrow am.
[2019-05-18] MEDS ORDERED: acetaminophen 325mg/10.15ml oral unit dose solution OGT PRN (11:21)
[2019-05-18] MEDS ORDERED: mag hydrox/Alum hydrox/simeth 30ml oral suspension OGT PRN (11:23)
[2019-05-18] MEDS ORDERED: magnesium hydroxide 30ml (MOM) UD suspension OGT PRN (11:23)
--- NOTE | 2019-05-18 11:45 | NUR ---
1130- Carotid ultrasound completed, awaiting report. Preliminary showed Left carotid patent. R carotid ICA and vertebral occluded. Last carotid ultrasound in 2016 not occluded.
--- NOTE | 2019-05-18 11:59 | NUR ---
1150- here. States the right carotid became occluded after that 2016 scan, mentions something of a bovine carotid artery graft but she believes it failed.
--- NOTE | 2019-05-18 15:37 | NUR ---
Initial assessment (05/18): Pt is admitted to the unit with dx of SOB, CKD, PNA. According to physical hx, pt has a medical hx of right-sided heart failure, high blood pressure, and COPD. Pt had CT scan couple days ago, showed might be acute cholecystitis.Pt coded twice yesterday, placed on hypothermia protocol rewarming today per MD. Pt is intubated, sedated on pressors. After rewarmed, pt is expected to get HIDA, EEG, CT, and MRI. Pt remains NPO, if prolonged intubation rec. EN as medically indicated. LBM 05/14. Will continue to monitor. Recommendations: 1. Continue NPO until medically indicated to advance po diet. If prolonged intubation, rec. EN. 2. Bowel care routine 3. Weekly wts. 4. If extubated, advance diet as medically indicated to heart healthy Addendum: 05/18/19 at [address] Amended: Links added. Addendum: 05/18/19 at [address] ISABEL Champagne
[2019-05-18] MEDS: furosemide 20 MG/2 ML vial IV SCH (16:04)
[2019-05-18] MEDS: heparin 25,000 UNIT/250ml bag 250 ML IV SCH (16:06)
[2019-05-18 17:09] LABS: CREATINE KINASE 74 U/L (39-308)
[2019-05-18 17:13] LABS: TROPONIN I 1.04 NG/ML (0.0-0.05)
--- NOTE | 2019-05-18 18:30 | NUR ---
Patient in room ICU 2040. I have received report from ZOE Dunham and had the opportunity to ask questions and assume patient care.
--- NOTE | 2019-05-18 18:36 | NUR ---
Problems reprioritized. Patient report given, questions answered & plan of care reviewed with Page.
[2019-05-18 20:46] LABS: ABG BASE EXCESS 8.4 mmol/L (-2.0-3.0); ABG HCO3 33.1 mmol/L (22.0-26.0); ABG OXYGEN SATURATION 90.6 % (95-98); ABG PCO2 (T) 41.6 mmHg (35.0-45.0); ABG PH (T) 7.508 (7.350-7.450); ABG PO2 (T) 48.8 mmHg (83-108); ALLEN'S TEST Positive; FCOHb 0.3 % (0.5-1.5); FMetHb 0.2 % (0.3-1.12); FO2Hb 90.1 % (94-100); MINUTE VOLUME 7 L/min; PATIENT TEMPERATURE 34.4; PEEP 8 cm H2O; RESPIRATORY RATE 14 b/min; RESPIRATORY RATE (OBSERVED) 14 b/min; TIDAL VOLUME 500 mL; TOTAL HEMOGLOBIN 10.6 G/dl (14.0-17.9)
[2019-05-18] MEDS: lactobacillus rhamnosus 10,000 MMU CELLS/CAPSULE PO SCH (20:50)
[2019-05-18 20:56] LABS: ALBUMIN 2.3 G/DL (3.4-5.0); ANION GAP 1 (8-16); BLOOD UREA NITROGEN 53 MG/DL (7-18); BUN/CREATININE RATIO 20.3 (5.4-32.0); CALCIUM 8.1 MG/DL (8.5-10.1); CHLORIDE 103 MMOL/L (99-107); CREATININE 2.61 MG/DL (0.60-1.10); GLUCOSE 119 MG/DL (70-104); MAGNESIUM 2.1 MG/DL (1.5-2.4); PHOSPHORUS 3.7 MG/DL (2.3-4.5); POTASSIUM 3.8 MMOL/L (3.5-5.1); SODIUM 140 MMOL/L (135-145); TOTAL CARBON DIOXIDE 35.7 MMOL/L (24-32); eGFR 24 ML/MIN
[2019-05-19] VITALS (24 sets, daily range): BP systolic 82–111; BP diastolic 49–73
[2019-05-19] MEDS: furosemide 20 MG/2 ML vial IV SCH ×3 (00:02→16:21)
[2019-05-19] MEDS: NORepinephrine 8mg/ 250ml NS 250 ML IV SCH ×3 (00:03→21:13)
[2019-05-19] MEDS: CISatracurium besylate inj. 100 MG in dextrose 5%-water 50ml 40 ML IV PRN (00:03)
[2019-05-19 02:30] LABS: BASOPHILS % (AUTO) 0 % (0-1); EOSINOPHILS # (AUTO) 0.1 X10'3 (0-0.9); EOSINOPHILS % (AUTO) 0.4 % (0-6); HEMATOCRIT 31.8 % (42.0-52.0); HEMOGLOBIN 9.9 g/dl (14.0-17.9); LYMPHOCYTES # (AUTO) 0.7 X10'3 (1.1-4.8); LYMPHOCYTES % (AUTO) 3.5 % (21-51); MEAN CORPUSCULAR HEMOGLOBIN 24.5 PG (27.0-31.0); MEAN CORPUSCULAR HGB CONC 31.1 g/dL (33.0-36.5); MEAN CORPUSCULAR VOLUME 78.6 FL (78-98); MEAN PLATELET VOLUME 6.5 FL (7.4-10.4); MONOCYTES # (AUTO) 1.7 X10'3 (0-0.9); MONOCYTES % (AUTO) 8.7 % (2-12); NEUTROPHILS # (AUTO) 16.7 X10'3 (1.8-7.7); NEUTROPHILS % (AUTO) 87.4 % (42-75); PLATELET COUNT 174 X10'3 (140-440); RED BLOOD COUNT 4.05 X10'6 (4.70-6.10); WHITE BLOOD COUNT 19.1 X10'3 (4.5-11.0)
[2019-05-19 02:51] LABS: ALANINE AMINOTRANSFERASE 26 U/L (12-78); ALBUMIN 2.4 G/DL (3.4-5.0); ALKALINE PHOSPHATASE 68 IU/L (46-116); ANION GAP 4 (8-16); ASPARTATE AMINO TRANSFERASE 38 U/L (10-37); BILIRUBIN,TOTAL 1.4 MG/DL (0.1-1.0); BLOOD UREA NITROGEN 53 MG/DL (7-18); BUN/CREATININE RATIO 20.3 (5.4-32.0); CALCIUM 8.8 MG/DL (8.5-10.1); CHLORIDE 100 MMOL/L (99-107); CREATINE KINASE 40 U/L (39-308); CREATININE 2.61 MG/DL (0.60-1.10); GLUCOSE 119 MG/DL (70-104); MAGNESIUM 2.2 MG/DL (1.5-2.4); PHOSPHORUS 3.9 MG/DL (2.3-4.5); POTASSIUM 3.9 MMOL/L (3.5-5.1); SODIUM 138 MMOL/L (135-145); TOTAL CARBON DIOXIDE 33.7 MMOL/L (24-32); TOTAL PROTEIN 4.7 G/DL (6.4-8.2); eGFR 24 ML/MIN
[2019-05-19 02:52] LABS: TROPONIN I 0.84 NG/ML (0.0-0.05)
[2019-05-19 02:55] LABS: LARGE PLATELETS FEW; PLATELET ESTIMATE NORMAL
[2019-05-19 02:56] LABS: ANISOCYTOSIS 3+; MICROCYTOSIS 1+; POLYCHROMASIA FEW
[2019-05-19 03:20] LABS: ABG BASE EXCESS 8.1 mmol/L (-2.0-3.0); ABG OXYGEN SATURATION 93.9 % (95-98); ABG PCO2 (T) 51.7 mmHg (35.0-45.0); ABG PH (T) 7.431 (7.350-7.450); ABG PO2 (T) 67.8 mmHg (83-108); ALLEN'S TEST Positive; FCOHb 0.4 % (0.5-1.5); FMetHb 0.2 % (0.3-1.12); FO2Hb 93.3 % (94-100); MINUTE VOLUME 6 L/min; PATIENT TEMPERATURE 36.1; PEEP 10 cm H2O; RESPIRATORY RATE 12 b/min; RESPIRATORY RATE (OBSERVED) 12 b/min; TIDAL VOLUME 500 mL; TOTAL HEMOGLOBIN 11.2 G/dl (14.0-17.9)
[2019-05-19 03:31] LABS: OXYGEN SATURATION (MIXED VEN) 75.8 % (60-80); PO2 MIXED VENOUS (TEMP COR) 40.5 mmHg (35-46)
[2019-05-19] MEDS: heparin 10,000 units/1 ML INJ IV PRN ×2 (04:54→20:14)
--- NOTE | 2019-05-19 06:52 | NUR ---
Patient in room ICU 2040. I have received report from Page ENRIQUEZ and had the opportunity to ask questions and assume patient care.
[2019-05-19] MEDS: levoFLOXACIN-Levaquin 250mg/D5 50 ML IV SCH (07:30)
[2019-05-19] MEDS: pantoprazole 40 MG vial IV SCH (07:30)
[2019-05-19] MEDS: lactobacillus rhamnosus 10,000 MMU CELLS/CAPSULE PO SCH ×2 (07:30→20:07)
[2019-05-19] MEDS: cefepime 1GM in D5W 50mL 50 ML IV SCH (07:31)
--- NOTE | 2019-05-19 07:52 | NUR ---
Call from Radiology; ETT is "2-3cm too far, needs to be pulled back." ETT pulled back to 24cm at the teeth; new CXR ordered.
--- NOTE | 2019-05-19 07:53 | NUR ---
ETT WAS PULLED BACK TO 24CM AT THE TEETH. PER RADIOLOGY, TUBE WAS TOO FAR DOWN. EQUAL BILATERAL BS HEARD.
[2019-05-19] MEDS ORDERED: insulin regular, human inj. 100 UNITS in normal saline 100ml IV soln 100 ML IV SCH ×2 (08:16)
[2019-05-19] MEDS ORDERED: furosemide 40mg/4ml inj IV ONE (08:25)
[2019-05-19] MEDS: insulin Lispro (HumaLOG) vial - multi-dose SQ SCH (08:32)
[2019-05-19] MEDS ORDERED: SINCALIDE IV ONE (09:30)
[2019-05-19] MEDS ORDERED: NORMAL SALINE IV ONE (09:30)
[2019-05-19 09:40] LABS: ABG BASE EXCESS 7.2 mmol/L (-2.0-3.0); ABG HCO3 32.5 mmol/L (22.0-26.0); ABG OXYGEN SATURATION 89.1 % (95-98); ABG PCO2 (T) 48.4 mmHg (35.0-45.0); ABG PH (T) 7.443 (7.350-7.450); ABG PO2 (T) 55.2 mmHg (83-108); ALLEN'S TEST Positive; FCOHb 0.7 % (0.5-1.5); FMetHb 0.3 % (0.3-1.12); FO2Hb 88.2 % (94-100); MINUTE VOLUME 9 L/min; PATIENT TEMPERATURE 36.7; PEEP 10 cm H2O; RESPIRATORY RATE 12 b/min; RESPIRATORY RATE (OBSERVED) 17 b/min; TIDAL VOLUME 500 mL; TOTAL HEMOGLOBIN 11.2 G/dl (14.0-17.9)
[2019-05-19] MEDS: VANCOmycin 1250MG/NS 250ml Bag 250 ML IV SCH (09:41)
[2019-05-19 10:02] LABS: ALBUMIN 2.5 G/DL (3.4-5.0); ANION GAP 3 (8-16); BLOOD UREA NITROGEN 53 MG/DL (7-18); BUN/CREATININE RATIO 20.6 (5.4-32.0); CALCIUM 7.8 MG/DL (8.5-10.1); CHLORIDE 99 MMOL/L (99-107); CREATININE 2.57 MG/DL (0.60-1.10); GLUCOSE 147 MG/DL (70-104); POTASSIUM 4.1 MMOL/L (3.5-5.1); SODIUM 136 MMOL/L (135-145); TOTAL CARBON DIOXIDE 34.1 MMOL/L (24-32); eGFR 24 ML/MIN
[2019-05-19 10:07] LABS: PHOSPHORUS 3.8 MG/DL (2.3-4.5)
[2019-05-19] MEDS ORDERED: insulin regular, human vial - multi-dose SQ SCH ×2 (10:09→16:59)
--- NOTE | 2019-05-19 11:18 | NUR ---
IR evaluated pt for thoracentesis. Pt Heparin drip suspended for two hours so pt can have procedure done.
[2019-05-19] MEDS ORDERED: mineral oil/petrolatum ophthal oint EACHEYE PRN (11:40)
[2019-05-19] MEDS: heparin 25,000 UNIT/250ml bag 250 ML IV SCH ×2 (11:45→20:33)
[2019-05-19] MEDS: dextrose 5%-water 1,000 ML IV SCH (14:06)
--- NOTE | 2019-05-19 14:07 | NUR ---
Report given to Maria Luisa ENRIQUEZ
--- NOTE | 2019-05-19 14:42 | NUR ---
IR NOTE: ULTRASOUND BROUGHT TO ROOM 2040, INFORMED CONSENT OBTAINED FROM . PT IS ON VENTILATOR AT 95% FIO2. PRIMARY RN AT BEDSIDE ASSISTING WITH SUCTION SET UP. VITALS NOTED AND MD AWARE. PT PUT ON 100% FIO2 PER EPHRAIM ENRIQUEZ. PT MOVED TO LEFT POSITION, ULTRASOUND USED TO VISUALIZE PLEURAL FLUID. SITE MARKED PER MD. TIME OUT PERFORMED. LIDOCAINE INFILTRATE INJECTED PER MD, 12.0FR THOMPSON WIGGINS CATHETER PLACED TO LEFT CHEST PER MD. DRAINAGE CATHETER ATTACHED TO ATRIUM AND 400ML CLEAR JENNIFER FLUID IMMEDIATELY DRAINED INTO ATRIUM. CATHETER SECURED TO POSTERIOR CHEST WITH STAYFIX DRESSING. REPORT GIVEN TO PRIMARY RN.
[2019-05-19 15:10] LABS: ABG HCO3 30.4 mmol/L (22.0-26.0); ABG OXYGEN SATURATION 95.3 % (95-98); ABG PCO2 (T) 49.4 mmHg (35.0-45.0); ABG PH (T) 7.408 (7.350-7.450); ABG PO2 (T) 79.7 mmHg (83-108); ALLEN'S TEST Positive; FCOHb 0.4 % (0.5-1.5); FMetHb 0.1 % (0.3-1.12); FO2Hb 94.8 % (94-100); MINUTE VOLUME 7 L/min; PATIENT TEMPERATURE 37.2; PEEP 10 cm H2O; RESPIRATORY RATE 12 b/min; RESPIRATORY RATE (OBSERVED) 15 b/min; TIDAL VOLUME 500 mL; TOTAL HEMOGLOBIN 10.9 G/dl (14.0-17.9)
--- NOTE | 2019-05-19 15:55 | NUR ---
TF Consult (05/19): The pt has a massive pleural effusion left side with completely opacified left lung noted per MD. Pt is at normal thermic temperature per bedside RN. MAP 60. OGTF to start today per MD. Recommend of using Vital High Protein at goal rate 80ml/hr. LBM 05/14 would benefit from bowel care, will discuss with MD. Will monitor TF tolerance. Recommendations: 1. Continuous TF by using Vital High Protein at goal rate of 80ml/hr; to provide 1920ml fluid, 1920kcal, 1613ml free water, and 168g protein. 2. Additional water flushes 185ml Q4 3. Rec. bowel care due to LBM 05/14 4. Daily wts; Prealbumin / 5. Once extubated, advance diet as medically indicated to heart healthy Addendum: 05/19/19 at [address] Amended: Links added. Addendum: 05/19/19 at [address] I have reviewed and agree with note by Yarn Winder. Amparo Iverson RD
[2019-05-19] MEDS: FENTANYL-0.9 % NACL/PF 100 ML IV PRN (16:22)
[2019-05-19 16:28] LABS: ALBUMIN 2.4 G/DL (3.4-5.0); ANION GAP 3 (8-16); BLOOD UREA NITROGEN 52 MG/DL (7-18); BUN/CREATININE RATIO 20.2 (5.4-32.0); CALCIUM 7.9 MG/DL (8.5-10.1); CHLORIDE 99 MMOL/L (99-107); CREATININE 2.58 MG/DL (0.60-1.10); GLUCOSE 117 MG/DL (70-104); MAGNESIUM 1.9 MG/DL (1.5-2.4); PHOSPHORUS 3.7 MG/DL (2.3-4.5); SODIUM 138 MMOL/L (135-145); TOTAL CARBON DIOXIDE 35.8 MMOL/L (24-32); eGFR 24 ML/MIN
[2019-05-19 18:35] LABS: PARTIAL THROMBOPLASTIN TIME 42 SECONDS (22-32)
[2019-05-19] MEDS ORDERED: furosemide 40mg/4ml inj IV SCH (20:00)
[2019-05-19] MEDS: midazolam 100mg in NS 100ml 100 ML IV PRN (21:13)
[2019-05-19 22:43] LABS: ALBUMIN 2.3 G/DL (3.4-5.0); ANION GAP 3 (8-16); BLOOD UREA NITROGEN 51 MG/DL (7-18); BUN/CREATININE RATIO 20.1 (5.4-32.0); CHLORIDE 99 MMOL/L (99-107); CREATININE 2.54 MG/DL (0.60-1.10); GLUCOSE 125 MG/DL (70-104); MAGNESIUM 1.9 MG/DL (1.5-2.4); PHOSPHORUS 3.7 MG/DL (2.3-4.5); POTASSIUM 3.7 MMOL/L (3.5-5.1); SODIUM 138 MMOL/L (135-145); TOTAL CARBON DIOXIDE 36.2 MMOL/L (24-32); eGFR 24 ML/MIN
--- NOTE | 2019-05-19 23:18 | NUR ---
RN Note -Sedation Vacation Versed and Fentanyl off for over an hour. Pt grimacing, opened eyes to voice, moving all extremities, not following commands. Resumed Fentanyl at previous rate.
[2019-05-20] VITALS (24 sets, daily range): BP systolic 90–125; BP diastolic 54–71
[2019-05-20] MEDS: furosemide 20 MG/2 ML vial IV SCH ×3 (02:21→16:44)
[2019-05-20 03:30] LABS: BASOPHILS % (AUTO) 0 % (0-1); EOSINOPHILS % (AUTO) 0.1 % (0-6); HEMATOCRIT 29.1 % (42.0-52.0); HEMOGLOBIN 9.4 g/dl (14.0-17.9); LYMPHOCYTES # (AUTO) 0.9 X10'3 (1.1-4.8); LYMPHOCYTES % (AUTO) 4.8 % (21-51); MEAN CORPUSCULAR HEMOGLOBIN 24.5 PG (27.0-31.0); MEAN CORPUSCULAR HGB CONC 32.1 g/dL (33.0-36.5); MEAN CORPUSCULAR VOLUME 76.4 FL (78-98); MEAN PLATELET VOLUME 6.5 FL (7.4-10.4); MONOCYTES # (AUTO) 2.1 X10'3 (0-0.9); MONOCYTES % (AUTO) 11.2 % (2-12); NEUTROPHILS % (AUTO) 83.9 % (42-75); PLATELET COUNT 146 X10'3 (140-440); RED BLOOD COUNT 3.81 X10'6 (4.70-6.10); RED CELL DISTRIBUTION WIDTH 20.7 % (11.5-14.5); WHITE BLOOD COUNT 19.1 X10'3 (4.5-11.0)
[2019-05-20 03:42] LABS: ALANINE AMINOTRANSFERASE 22 U/L (12-78); ALBUMIN 2.2 G/DL (3.4-5.0); ALBUMIN/GLOBULIN RATIO 0.8 (1.1-1.5); ALKALINE PHOSPHATASE 65 IU/L (46-116); ANION GAP 3 (8-16); ASPARTATE AMINO TRANSFERASE 29 U/L (10-37); BILIRUBIN,TOTAL 1.8 MG/DL (0.1-1.0); BLOOD UREA NITROGEN 50 MG/DL (7-18); BUN/CREATININE RATIO 20.4 (5.4-32.0); CALCIUM 7.9 MG/DL (8.5-10.1); CHLORIDE 99 MMOL/L (99-107); CREATININE 2.45 MG/DL (0.60-1.10); GLUCOSE 126 MG/DL (70-104); MAGNESIUM 1.8 MG/DL (1.5-2.4); PHOSPHORUS 3.5 MG/DL (2.3-4.5); POTASSIUM 3.6 MMOL/L (3.5-5.1); SODIUM 138 MMOL/L (135-145); TOTAL CARBON DIOXIDE 36.4 MMOL/L (24-32); TOTAL PROTEIN 4.9 G/DL (6.4-8.2); eGFR 25 ML/MIN
[2019-05-20 04:16] LABS: ANISOCYTOSIS 3+; MICROCYTOSIS 1+; PLATELET ESTIMATE NORMAL; TOTAL CELLS COUNTED 100
[2019-05-20 04:17] LABS: POLYCHROMASIA FEW; SCHISTOCYTES FEW; TOXIC GRANULATION 2+
[2019-05-20 04:18] LABS: SMUDGE CELLS FEW; TOXIC VACUOLATION FEW
[2019-05-20] MEDS: dextrose 5%-water 1,000 ML IV SCH ×2 (04:24→18:42)
[2019-05-20 05:30] LABS: ABG BASE EXCESS 7.7 mmol/L (-2.0-3.0); ABG HCO3 32.9 mmol/L (22.0-26.0); ABG OXYGEN SATURATION 96.8 % (95-98); ABG PCO2 (T) 50.2 mmHg (35.0-45.0); ABG PH (T) 7.436 (7.350-7.450); ABG PO2 (T) 90.8 mmHg (83-108); ALLEN'S TEST Positive; FCOHb 0.8 % (0.5-1.5); FMetHb 0.1 % (0.3-1.12); FO2Hb 95.9 % (94-100); MINUTE VOLUME 10 L/min; PATIENT TEMPERATURE 37.4; PEEP 10 cm H2O; RESPIRATORY RATE 12 b/min; RESPIRATORY RATE (OBSERVED) 18 b/min; TIDAL VOLUME 500 mL; TOTAL HEMOGLOBIN 10.2 G/dl (14.0-17.9)
[2019-05-20] MEDS: levoFLOXACIN-Levaquin 250mg/D5 50 ML IV SCH (07:50)
[2019-05-20] MEDS: lactobacillus rhamnosus 10,000 MMU CELLS/CAPSULE PO SCH ×2 (07:50→20:41)
[2019-05-20] MEDS: pantoprazole 40 MG vial IV SCH (07:50)
[2019-05-20] MEDS: cefepime 1GM in D5W 50mL 50 ML IV SCH (07:51)
[2019-05-20] MEDS ORDERED: furosemide 40mg/4ml inj IV ONE (08:50)
[2019-05-20] MEDS: VANCOmycin 1250MG/NS 250ml Bag 250 ML IV SCH (09:27)
[2019-05-20] MEDS: methylnaltrexone br 12mg/0.6ml inj***SubQ only SQ SCH (09:28)
--- NOTE | 2019-05-20 10:29 | NUR ---
Family is at bedside visiting with patient.
--- NOTE | 2019-05-20 15:40 | NUR ---
Skin tear to the R-upper arm by PICC line nurse when she was pulling the PICC line dressing. Wound care informed, gel dressing applied per wound care, took pictures and the measurement. Picture placed in the patients chart.
[2019-05-20 16:23] LABS: PARTIAL THROMBOPLASTIN TIME > 139 SECONDS (22-32)
[2019-05-20] MEDS: DOBUTamine-DoBUTrex 500mg/D5W 250 ML IV SCH (17:10)
--- NOTE | 2019-05-20 18:28 | NUR ---
PTT >139 at 1620. Called , No new order, to protocol. Heparin stopped at 1630. Mac (shift stacker RN) updated.
[2019-05-20] MEDS: FENTANYL-0.9 % NACL/PF 100 ML IV PRN (19:12)
[2019-05-20] MEDS: heparin 25,000 UNIT/250ml bag 250 ML IV SCH (19:17)
[2019-05-20 21:17] LABS: PARTIAL THROMBOPLASTIN TIME 42 SECONDS (22-32)
[2019-05-20] MEDS: heparin 10,000 units/1 ML INJ IV PRN (22:02)
--- NOTE | 2019-05-20 23:20 | NUR ---
RN Note -Pupils Pupils unequal, rt larger than than left. Both reactive to light.
[2019-05-21] VITALS (24 sets, daily range): BP systolic 101–168; BP diastolic 34–79
[2019-05-21] MEDS: furosemide 20 MG/2 ML vial IV SCH ×3 (00:51→16:18)
[2019-05-21 03:39] LABS: BASOPHILS % (AUTO) 0.1 % (0-1); EOSINOPHILS % (AUTO) 0.3 % (0-6); HEMATOCRIT 26.6 % (42.0-52.0); HEMOGLOBIN 8.3 g/dl (14.0-17.9); LYMPHOCYTES # (AUTO) 0.5 X10'3 (1.1-4.8); LYMPHOCYTES % (AUTO) 4.4 % (21-51); MEAN CORPUSCULAR HEMOGLOBIN 24.2 PG (27.0-31.0); MEAN CORPUSCULAR HGB CONC 31.3 g/dL (33.0-36.5); MEAN CORPUSCULAR VOLUME 77.2 FL (78-98); MEAN PLATELET VOLUME 8.1 FL (7.4-10.4); MONOCYTES # (AUTO) 1.3 X10'3 (0-0.9); MONOCYTES % (AUTO) 10.8 % (2-12); NEUTROPHILS # (AUTO) 10.4 X10'3 (1.8-7.7); NEUTROPHILS % (AUTO) 84.4 % (42-75); PLATELET COUNT 111 X10'3 (140-440); RED BLOOD COUNT 3.45 X10'6 (4.70-6.10); RED CELL DISTRIBUTION WIDTH 19.9 % (11.5-14.5); WHITE BLOOD COUNT 12.3 X10'3 (4.5-11.0)
[2019-05-21 03:54] LABS: ALANINE AMINOTRANSFERASE 17 U/L (12-78); ALBUMIN/GLOBULIN RATIO 0.7 (1.1-1.5); ALKALINE PHOSPHATASE 62 IU/L (46-116); ANION GAP 2 (8-16); ASPARTATE AMINO TRANSFERASE 16 U/L (10-37); BILIRUBIN,TOTAL 1.2 MG/DL (0.1-1.0); BLOOD UREA NITROGEN 51 MG/DL (7-18); BUN/CREATININE RATIO 23.5 (5.4-32.0); CALCIUM 7.5 MG/DL (8.5-10.1); CHLORIDE 99 MMOL/L (99-107); CREATININE 2.17 MG/DL (0.60-1.10); GLUCOSE 137 MG/DL (70-104); MAGNESIUM 1.6 MG/DL (1.5-2.4); PHOSPHORUS 3.1 MG/DL (2.3-4.5); POTASSIUM 3.2 MMOL/L (3.5-5.1); PREALBUMIN 10.1 MG/DL (19-36); SODIUM 139 MMOL/L (135-145); TOTAL CARBON DIOXIDE 37.7 MMOL/L (24-32); TOTAL PROTEIN 4.9 G/DL (6.4-8.2); eGFR 29 ML/MIN
[2019-05-21 04:25] LABS: ABG BASE EXCESS 11.5 mmol/L (-2.0-3.0); ABG OXYGEN SATURATION 92.9 % (95-98); ABG PCO2 (T) 54.7 mmHg (35.0-45.0); ABG PH (T) 7.448 (7.350-7.450); ABG PO2 (T) 66.5 mmHg (83-108); ALLEN'S TEST Positive; FCOHb 0.5 % (0.5-1.5); FMetHb 0.1 % (0.3-1.12); FO2Hb 92.3 % (94-100); MINUTE VOLUME 7 L/min; PATIENT TEMPERATURE 37.1; PEEP 8 cm H2O; RESPIRATORY RATE 12 b/min; RESPIRATORY RATE (OBSERVED) 13 b/min; TIDAL VOLUME 500 mL; TOTAL HEMOGLOBIN 9.4 G/dl (14.0-17.9)
[2019-05-21 04:34] LABS: PLATELET ESTIMATE DECREASED
[2019-05-21 04:35] LABS: ANISOCYTOSIS 2+; ELLIPTOCYTES FEW; HYPOCHROMASIA 1+; MICROCYTOSIS 1+; SCHISTOCYTES 1+; SPHEROCYTES 1+; TEAR DROP CELLS FEW
--- NOTE | 2019-05-21 05:00 | NUR ---
RN Note -Neuro Status Pt opened eyes spontaneously, and squeezed hands on both sides on command. Pt moving all extremities, coughing and bucking vent. Started Versed drip for pt comfort.
[2019-05-21] MEDS: midazolam 100mg in NS 100ml 100 ML IV PRN (06:28)
[2019-05-21] MEDS: cefepime 1GM in D5W 50mL 50 ML IV SCH (09:04)
[2019-05-21] MEDS: pantoprazole 40 MG vial IV SCH (09:05)
[2019-05-21] MEDS: lactobacillus rhamnosus 10,000 MMU CELLS/CAPSULE PO SCH ×2 (09:05→20:17)
[2019-05-21] MEDS ORDERED: VANCOMYCIN LEVEL IV ONE (09:30)
[2019-05-21] MEDS: NORepinephrine 8mg/ 250ml NS 250 ML IV SCH (09:30)
[2019-05-21] MEDS ORDERED: magnesium 4gm in 100ml NS 100 ML IV PRN (09:35)
[2019-05-21] MEDS ORDERED: magnesium 2GM in 50ml NS 50 ML IV PRN (09:35)
[2019-05-21] MEDS: levoFLOXACIN-Levaquin 250mg/D5 50 ML IV SCH (10:04)
[2019-05-21 10:38] LABS: PARTIAL THROMBOPLASTIN TIME 44 SECONDS (22-32)
[2019-05-21 10:39] LABS: ALBUMIN 2.1 G/DL (3.4-5.0); ANION GAP 4 (8-16); BLOOD UREA NITROGEN 51 MG/DL (7-18); BUN/CREATININE RATIO 24.2 (5.4-32.0); CALCIUM 7.4 MG/DL (8.5-10.1); CHLORIDE 99 MMOL/L (99-107); CREATININE 2.11 MG/DL (0.60-1.10); GLUCOSE 113 MG/DL (70-104); MAGNESIUM 1.8 MG/DL (1.5-2.4); POTASSIUM 3.3 MMOL/L (3.5-5.1); SODIUM 140 MMOL/L (135-145); TOTAL CARBON DIOXIDE 37.4 MMOL/L (24-32); eGFR 30 ML/MIN
[2019-05-21] MEDS ORDERED: apixaban 5mg tablet PO SCH (10:49)
[2019-05-21] MEDS: VANCOmycin 1250MG/NS 250ml Bag 250 ML IV SCH (11:03)
[2019-05-21] MEDS: potassium Cl 20mEq/100mL bag 100 ML IV PRN ×4 (11:03→16:18)
[2019-05-21] MEDS: heparin 10,000 units/1 ML INJ IV PRN (11:08)
--- NOTE | 2019-05-21 12:02 | NUR ---
F/U (05/21): Pt still on on ventilator with Fentanyl noted per MD. Pt is expected to go to MRI today per bedside RN. Pt is tolerating TF well, however, due to renal failure, water flushes change to 300ml Q12H per MD discussed with RN at rounds. LBM 05/14, just started with Relistor yesterday. Will continue to monitor. Recommendations: 1. Continuous TF by using Vital High Protein at goal rate of 80ml/hr; to provide 1920ml fluid, 1920kcal, 1613ml free water, and 168g protein. 2. Additional water flushes 300ml Q12H per MD 3. Bowel care routine 4. Daily wts; Prealbumin qM/ 5. Once extubated, advance diet as medically indicated to heart healthy Addendum: 05/21/19 at [address] Amended: Links added. Addendum: 05/21/19 at [address] I have reviewed and agree with note by Pad Machine Feeder. Amparo Iverson, RD
[2019-05-21 12:10] LABS: VANCOMYCIN,TROUGH 18.9 UG/ML (6.0-14.0)
[2019-05-21] MEDS: FENTANYL-0.9 % NACL/PF 100 ML IV PRN (20:16)
[2019-05-21] MEDS: carvedilol 6.25mg tablet PO SCH (20:17)
--- NOTE | 2019-05-21 21:14 | NUR ---
Pt opens eyes spontaneously, moves lower extremities but does not follow commands. Vitals signs stable, BP@2114:150/45, Sats:100% on 50%FiO2. Pt daughter updated earlier, answered questions,addressed concerns.
--- NOTE | 2019-05-21 21:14 | NUR ---
Late Entry:1830:Patient in room ICU 2040. I have received report from ya ENRIQUEZ and had the opportunity to ask questions and assume patient care.
[2019-05-22] VITALS (27 sets, daily range): BP systolic 77–173; BP diastolic 44–109
[2019-05-22] MEDS: furosemide 20 MG/2 ML vial IV SCH ×3 (01:28→16:49)
[2019-05-22 02:28] LABS: BASOPHILS % (AUTO) 0.2 % (0-1); EOSINOPHILS # (AUTO) 0.1 X10'3 (0-0.9); EOSINOPHILS % (AUTO) 1.1 % (0-6); HEMATOCRIT 26.2 % (42.0-52.0); HEMOGLOBIN 8.3 g/dl (14.0-17.9); LYMPHOCYTES # (AUTO) 0.6 X10'3 (1.1-4.8); LYMPHOCYTES % (AUTO) 5.5 % (21-51); MEAN CORPUSCULAR HEMOGLOBIN 24.6 PG (27.0-31.0); MEAN CORPUSCULAR HGB CONC 31.7 g/dL (33.0-36.5); MEAN CORPUSCULAR VOLUME 77.5 FL (78-98); MEAN PLATELET VOLUME 6.5 FL (7.4-10.4); MONOCYTES # (AUTO) 1.7 X10'3 (0-0.9); MONOCYTES % (AUTO) 17.2 % (2-12); NEUTROPHILS # (AUTO) 7.6 X10'3 (1.8-7.7); PLATELET COUNT 103 X10'3 (140-440); RED BLOOD COUNT 3.38 X10'6 (4.70-6.10); RED CELL DISTRIBUTION WIDTH 20.5 % (11.5-14.5)
[2019-05-22 02:47] LABS: ALANINE AMINOTRANSFERASE 13 U/L (12-78); ALBUMIN 1.9 G/DL (3.4-5.0); ALBUMIN/GLOBULIN RATIO 0.6 (1.1-1.5); ALKALINE PHOSPHATASE 73 IU/L (46-116); ANION GAP 2 (8-16); ASPARTATE AMINO TRANSFERASE 19 U/L (10-37); BILIRUBIN,TOTAL 1.1 MG/DL (0.1-1.0); BLOOD UREA NITROGEN 57 MG/DL (7-18); BUN/CREATININE RATIO 29.4 (5.4-32.0); CALCIUM 7.6 MG/DL (8.5-10.1); CHLORIDE 99 MMOL/L (99-107); CREATININE 1.94 MG/DL (0.60-1.10); GLUCOSE 134 MG/DL (70-104); MAGNESIUM 1.8 MG/DL (1.5-2.4); PHOSPHORUS 2.8 MG/DL (2.3-4.5); POTASSIUM 3.8 MMOL/L (3.5-5.1); SODIUM 138 MMOL/L (135-145); TOTAL CARBON DIOXIDE 36.7 MMOL/L (24-32); TOTAL PROTEIN 5.1 G/DL (6.4-8.2); eGFR 33 ML/MIN
[2019-05-22 02:48] LABS: ANISOCYTOSIS 3+; ELLIPTOCYTES 1+; HYPOCHROMASIA 2+; MICROCYTOSIS 1+; PLATELET ESTIMATE DECREASED
[2019-05-22 03:50] LABS: ABG HCO3 38.5 mmol/L (22.0-26.0); ABG OXYGEN SATURATION 92.4 % (95-98); ABG PCO2 (T) 55.1 mmHg (35.0-45.0); ABG PH (T) 7.461 (7.350-7.450); ABG PO2 (T) 63.8 mmHg (83-108); ALLEN'S TEST Positive; FCOHb 0.7 % (0.5-1.5); FMetHb 0.3 % (0.3-1.12); FO2Hb 91.5 % (94-100); MINUTE VOLUME 7 L/min; PATIENT TEMPERATURE 36.8; PEEP 5 cm H2O; RESPIRATORY RATE 14 b/min; RESPIRATORY RATE (OBSERVED) 14 b/min; TIDAL VOLUME 500 mL
--- NOTE | 2019-05-22 06:37 | NUR ---
Problems reprioritized. Patient report given, questions answered & plan of care reviewed with Tray RN and Art RN.
[2019-05-22] MEDS: cefepime 1GM in D5W 50mL 50 ML IV SCH (08:31)
[2019-05-22] MEDS: lactobacillus rhamnosus 10,000 MMU CELLS/CAPSULE PO SCH ×2 (08:32→21:00)
[2019-05-22] MEDS: pantoprazole 40 MG vial IV SCH (08:32)
[2019-05-22] MEDS: methylnaltrexone br 12mg/0.6ml inj***SubQ only SQ SCH (08:32)
[2019-05-22] MEDS: carvedilol 6.25mg tablet PO SCH ×2 (08:32→21:00)
[2019-05-22] MEDS: levoFLOXACIN-Levaquin 250mg/D5 50 ML IV SCH (08:32)
[2019-05-22] MEDS: VANCOmycin 1250MG/NS 250ml Bag 250 ML IV SCH (10:27)
[2019-05-22] MEDS: FENTANYL-0.9 % NACL/PF 100 ML IV PRN (16:59)
[2019-05-22] MEDS: midazolam 100mg in NS 100ml 100 ML IV PRN (18:17)
--- NOTE | 2019-05-22 18:30 | NUR ---
Patient in room ICU 2040. I have received report from Art RN and had the opportunity to ask questions and assume patient care.
[2019-05-22] MEDS: ipratropium/albuterol 3ml nebule NEB SCH ×2 (19:12→22:52)
[2019-05-22] MEDS: budesonide 0.5mg/2ml UD nebule IH SCH (19:18)
[2019-05-22] MEDS: apixaban 2.5mg tablet PO SCH (21:00)
[2019-05-23] VITALS (30 sets, daily range): BP systolic 15–119; BP diastolic 42–69
--- NOTE | 2019-05-23 00:15 | NUR ---
Pt's called, nothing new to report at this time. States she will call back in the morning. Pt's midnight crys held, BP below parameters. Will continue to monitor.
[2019-05-23 01:55] LABS: BASOPHILS # (AUTO) 0.1 X10'3 (0-0.2); BASOPHILS % (AUTO) 1.3 % (0-1); EOSINOPHILS # (AUTO) 0.1 X10'3 (0-0.9); EOSINOPHILS % (AUTO) 1.3 % (0-6); HEMATOCRIT 24.5 % (42.0-52.0); HEMOGLOBIN 7.8 g/dl (14.0-17.9); LYMPHOCYTES # (AUTO) 0.4 X10'3 (1.1-4.8); LYMPHOCYTES % (AUTO) 4.6 % (21-51); MEAN CORPUSCULAR HEMOGLOBIN 24.5 PG (27.0-31.0); MEAN CORPUSCULAR HGB CONC 31.7 g/dL (33.0-36.5); MEAN CORPUSCULAR VOLUME 77.2 FL (78-98); MEAN PLATELET VOLUME 6.9 FL (7.4-10.4); MONOCYTES # (AUTO) 1.6 X10'3 (0-0.9); MONOCYTES % (AUTO) 19.5 % (2-12); NEUTROPHILS # (AUTO) 6.2 X10'3 (1.8-7.7); NEUTROPHILS % (AUTO) 73.3 % (42-75); PLATELET COUNT 98 X10'3 (140-440); RED BLOOD COUNT 3.18 X10'6 (4.70-6.10); RED CELL DISTRIBUTION WIDTH 20.6 % (11.5-14.5); WHITE BLOOD COUNT 8.4 X10'3 (4.5-11.0)
[2019-05-23 02:17] LABS: ALANINE AMINOTRANSFERASE 13 U/L (12-78); ALBUMIN 1.8 G/DL (3.4-5.0); ALBUMIN/GLOBULIN RATIO 0.6 (1.1-1.5); ALKALINE PHOSPHATASE 84 IU/L (46-116); ANION GAP 3 (8-16); ASPARTATE AMINO TRANSFERASE 17 U/L (10-37); BLOOD UREA NITROGEN 65 MG/DL (7-18); BUN/CREATININE RATIO 35.7 (5.4-32.0); CALCIUM 7.6 MG/DL (8.5-10.1); CHLORIDE 99 MMOL/L (99-107); CREATININE 1.82 MG/DL (0.60-1.10); GLUCOSE 134 MG/DL (70-104); MAGNESIUM 1.7 MG/DL (1.5-2.4); POTASSIUM 3.4 MMOL/L (3.5-5.1); SODIUM 140 MMOL/L (135-145); TOTAL CARBON DIOXIDE 38.4 MMOL/L (24-32); TOTAL PROTEIN 4.9 G/DL (6.4-8.2); eGFR 36 ML/MIN
[2019-05-23] MEDS: ipratropium/albuterol 3ml nebule NEB SCH ×6 (03:06→23:01)
[2019-05-23 03:16] LABS: ABG BASE EXCESS 11.4 mmol/L (-2.0-3.0); ABG HCO3 36.7 mmol/L (22.0-26.0); ABG OXYGEN SATURATION 95.9 % (95-98); ABG PCO2 (T) 51.7 mmHg (35.0-45.0); ABG PH (T) 7.468 (7.350-7.450); ALLEN'S TEST Positive; FCOHb 0.8 % (0.5-1.5); FMetHb 0.2 % (0.3-1.12); FO2Hb 94.9 % (94-100); MINUTE VOLUME 7 L/min; PATIENT TEMPERATURE 36.5; PEEP 6 cm H2O; RESPIRATORY RATE 14 b/min; RESPIRATORY RATE (OBSERVED) 14 b/min; TIDAL VOLUME 500 mL; TOTAL HEMOGLOBIN 9.4 G/dl (14.0-17.9)
--- NOTE | 2019-05-23 06:30 | NUR ---
Patient in room ICU 2040. I have received report from Brigette ENRIQUEZ and had the opportunity to ask questions and assume patient care.
--- NOTE | 2019-05-23 06:40 | NUR ---
Problems reprioritized. Patient report given, questions answered & plan of care reviewed with Tray ENRIQUEZ.
[2019-05-23] MEDS: carvedilol 6.25mg tablet PO SCH ×2 (08:00→20:00)
[2019-05-23] MEDS: furosemide 20 MG/2 ML vial IV SCH ×2 (08:00)
[2019-05-23] MEDS: levoFLOXACIN-Levaquin 250mg/D5 50 ML IV SCH (08:50)
[2019-05-23] MEDS: pantoprazole 40 MG vial IV SCH (08:50)
[2019-05-23] MEDS: lactobacillus rhamnosus 10,000 MMU CELLS/CAPSULE PO SCH ×2 (08:50→20:47)
[2019-05-23] MEDS: cefepime 1GM in D5W 50mL 50 ML IV SCH (08:50)
[2019-05-23] MEDS: apixaban 2.5mg tablet PO SCH ×2 (08:50→20:47)
[2019-05-23] MEDS: VANCOmycin 1250MG/NS 250ml Bag 250 ML IV SCH (11:14)
[2019-05-23] MEDS: budesonide 0.5mg/2ml UD nebule IH SCH ×2 (11:31→19:14)
[2019-05-23] MEDS: FENTANYL-0.9 % NACL/PF 100 ML IV PRN (12:55)
[2019-05-23] MEDS: potassium Cl 20mEq/100mL bag 100 ML IV PRN ×4 (13:44→19:10)
[2019-05-23] MEDS: furosemide 40mg/4ml inj IV SCH ×2 (16:15→20:47)
--- NOTE | 2019-05-23 18:44 | NUR ---
Problems reprioritized. Patient report given, questions answered & plan of care reviewed with Eloina ENRIQUEZ. Addendum: 05/23/19 at 1856 by Tray Dozier RN Problems reprioritized. Patient report given, questions answered & plan of care reviewed with Page ENRIQUEZ.
[2019-05-23 19:15] LABS: ABG BASE EXCESS 8.6 mmol/L (-2.0-3.0); ABG HCO3 32.9 mmol/L (22.0-26.0); ABG OXYGEN SATURATION 89.7 % (95-98); ABG PCO2 (T) 45.8 mmHg (35.0-45.0); ABG PH (T) 7.477 (7.350-7.450); ABG PO2 (T) 57.7 mmHg (83-108); ALLEN'S TEST Positive; FCOHb 1.1 % (0.5-1.5); FMetHb 0.1 % (0.3-1.12); FO2Hb 88.6 % (94-100); MINUTE VOLUME 10 L/min; PATIENT TEMPERATURE 37.9; PEEP 6 cm H2O; RESPIRATORY RATE 14 b/min; RESPIRATORY RATE (OBSERVED) 17 b/min; TIDAL VOLUME 500 mL; TOTAL HEMOGLOBIN 10.5 G/dl (14.0-17.9)
[2019-05-24] VITALS (23 sets, daily range): BP systolic 90–127; BP diastolic 52–76
[2019-05-24 01:16] LABS: BASOPHILS % (AUTO) 0 % (0-1); EOSINOPHILS % (AUTO) 0.3 % (0-6); HEMATOCRIT 30.1 % (42.0-52.0); HEMOGLOBIN 9.6 g/dl (14.0-17.9); LYMPHOCYTES # (AUTO) 0.7 X10'3 (1.1-4.8); LYMPHOCYTES % (AUTO) 5.5 % (21-51); MEAN CORPUSCULAR HEMOGLOBIN 25.1 PG (27.0-31.0); MEAN CORPUSCULAR VOLUME 78.2 FL (78-98); MONOCYTES # (AUTO) 3.4 X10'3 (0-0.9); NEUTROPHILS # (AUTO) 8.5 X10'3 (1.8-7.7); NEUTROPHILS % (AUTO) 67.2 % (42-75); PLATELET COUNT 123 X10'3 (140-440); RED BLOOD COUNT 3.84 X10'6 (4.70-6.10); RED CELL DISTRIBUTION WIDTH 21.1 % (11.5-14.5); WHITE BLOOD COUNT 12.6 X10'3 (4.5-11.0)
[2019-05-24] MEDS: furosemide 40mg/4ml inj IV SCH ×4 (01:20→20:17)
[2019-05-24 01:38] LABS: ALANINE AMINOTRANSFERASE 16 U/L (12-78); ALBUMIN/GLOBULIN RATIO 0.6 (1.1-1.5); ALKALINE PHOSPHATASE 132 IU/L (46-116); ANION GAP 5 (8-16); ASPARTATE AMINO TRANSFERASE 24 U/L (10-37); BILIRUBIN,TOTAL 2.1 MG/DL (0.1-1.0); BLOOD UREA NITROGEN 70 MG/DL (7-18); BUN/CREATININE RATIO 42.2 (5.4-32.0); CHLORIDE 99 MMOL/L (99-107); CREATININE 1.66 MG/DL (0.60-1.10); GLUCOSE 129 MG/DL (70-104); MAGNESIUM 1.8 MG/DL (1.5-2.4); PHOSPHORUS 3.1 MG/DL (2.3-4.5); POTASSIUM 4.5 MMOL/L (3.5-5.1); SODIUM 139 MMOL/L (135-145); TOTAL CARBON DIOXIDE 34.8 MMOL/L (24-32); TOTAL PROTEIN 5.5 G/DL (6.4-8.2); eGFR 40 ML/MIN
[2019-05-24 02:29] LABS: PLATELET ESTIMATE DECREASED; TOTAL CELLS COUNTED 100
[2019-05-24 02:30] LABS: ANISOCYTOSIS 3+; ELLIPTOCYTES FEW; HYPOCHROMASIA 1+; MICROCYTOSIS 1+; POLYCHROMASIA FEW; TEAR DROP CELLS FEW
[2019-05-24] MEDS: ipratropium/albuterol 3ml nebule NEB SCH ×6 (03:08→22:56)
[2019-05-24 03:21] LABS: ABG BASE EXCESS 11.1 mmol/L (-2.0-3.0); ABG HCO3 35.8 mmol/L (22.0-26.0); ABG OXYGEN SATURATION 91.6 % (95-98); ABG PCO2 (T) 49.5 mmHg (35.0-45.0); ALLEN'S TEST Positive; FCOHb 1.8 % (0.5-1.5); FMetHb 0.1 % (0.3-1.12); FO2Hb 89.9 % (94-100); MINUTE VOLUME 8 L/min; PATIENT TEMPERATURE 37.8; PEEP 6 cm H2O; RESPIRATORY RATE 14 b/min; RESPIRATORY RATE (OBSERVED) 17 b/min; TIDAL VOLUME 500 mL; TOTAL HEMOGLOBIN 11.2 G/dl (14.0-17.9)
[2019-05-24] MEDS: FENTANYL-0.9 % NACL/PF 100 ML IV PRN (05:23)
[2019-05-24] MEDS: budesonide 0.5mg/2ml UD nebule IH SCH ×2 (06:57→19:21)
[2019-05-24] MEDS: pantoprazole 40 MG vial IV SCH (08:18)
[2019-05-24] MEDS: methylnaltrexone br 12mg/0.6ml inj***SubQ only SQ SCH (08:18)
[2019-05-24] MEDS: cefepime 1GM in D5W 50mL 50 ML IV SCH (08:18)
[2019-05-24] MEDS: apixaban 2.5mg tablet PO SCH ×2 (08:19→20:17)
[2019-05-24] MEDS: lactobacillus rhamnosus 10,000 MMU CELLS/CAPSULE PO SCH ×2 (08:19→20:17)
[2019-05-24] MEDS: carvedilol 6.25mg tablet PO SCH ×2 (10:26→20:17)
[2019-05-24] MEDS: VANCOmycin 1250MG/NS 250ml Bag 250 ML IV SCH (10:27)
--- NOTE | 2019-05-24 12:45 | NUR ---
Reassessment: Pt tolerating TF at goal.. LBM 05/22 moderate but also first noted BM since admit 6 days. Severe edema remains present per MD note w/ CT -450ml output noted as well as ~2600ml negative fluid balance past 5 days per I&O. Will continue to monitor. Recommendations: 1. Continuous TF by using Vital High Protein at goal rate of 80ml/hr; to provide 1920ml fluid, 1920kcal, 1613ml free water, and 168g protein. 2. Additional water flushes 300ml Q12H per MD 3. Bowel care routine 4. Daily wts; Prealbumin qM/Th 5. Once extubated, advance diet as medically indicated to heart healthy Addendum: 05/24/19 at [address] Amended: Links added.
--- NOTE | 2019-05-24 14:50 | NUR ---
0600 Received report from mendez Abel care of patient. 0815- sedation off, patient smiled at me, squeezes hands, alert, + gag with oral care and suctioning. Placed on spontaneous, tolerating well, increased respirations to 30. Poor participation with weaning parameters. Continue to monitor. 1115- Squeezes hand yes to pain, respiration 36, resumed fent at 25 and versed at 1. Patient back to resting comfortably, respiration 11 still maintaining spontaneous. 1500- Complete bed change as tube feed leaked, changed dressing to right arm. Open area where skin tear is at upper arm is actively bleeding, no gel dressing available, covered with optilock and rewrapped with gauze from wrist to armpit.
--- NOTE | 2019-05-24 18:27 | NUR ---
Problems reprioritized. Patient report given, questions answered & plan of care reviewed with Page.
--- NOTE | 2019-05-24 19:50 | NUR ---
Patient in room ICU 2040. I have received report from Page ENRIQUEZ and had the opportunity to ask questions and assume patient care.
--- NOTE | 2019-05-24 21:30 | NUR ---
CHG bath rendered. Linen/gown changed.
[2019-05-25] VITALS (25 sets, daily range): BP systolic 85–130; BP diastolic 56–79
[2019-05-25] MEDS: furosemide 40mg/4ml inj IV SCH ×4 (02:41→20:48)
[2019-05-25 02:58] LABS: BASOPHILS % (AUTO) 0.2 % (0-1); EOSINOPHILS # (AUTO) 0.1 X10'3 (0-0.9); EOSINOPHILS % (AUTO) 0.8 % (0-6); HEMATOCRIT 27.9 % (42.0-52.0); LYMPHOCYTES # (AUTO) 0.6 X10'3 (1.1-4.8); LYMPHOCYTES % (AUTO) 5.8 % (21-51); MEAN CORPUSCULAR HEMOGLOBIN 25.3 PG (27.0-31.0); MEAN CORPUSCULAR HGB CONC 32.2 g/dL (33.0-36.5); MEAN CORPUSCULAR VOLUME 78.6 FL (78-98); MEAN PLATELET VOLUME 7.3 FL (7.4-10.4); MONOCYTES # (AUTO) 2.2 X10'3 (0-0.9); MONOCYTES % (AUTO) 20.1 % (2-12); NEUTROPHILS % (AUTO) 73.1 % (42-75); PLATELET COUNT 132 X10'3 (140-440); RED BLOOD COUNT 3.55 X10'6 (4.70-6.10); RED CELL DISTRIBUTION WIDTH 21.7 % (11.5-14.5)
[2019-05-25 03:06] LABS: ALANINE AMINOTRANSFERASE 18 U/L (12-78); ALBUMIN 1.8 G/DL (3.4-5.0); ALBUMIN/GLOBULIN RATIO 0.5 (1.1-1.5); ALKALINE PHOSPHATASE 144 IU/L (46-116); ANION GAP 4 (8-16); ASPARTATE AMINO TRANSFERASE 27 U/L (10-37); BILIRUBIN,TOTAL 1.4 MG/DL (0.1-1.0); BLOOD UREA NITROGEN 79 MG/DL (7-18); BUN/CREATININE RATIO 44.4 (5.4-32.0); CALCIUM 7.9 MG/DL (8.5-10.1); CHLORIDE 101 MMOL/L (99-107); CREATININE 1.78 MG/DL (0.60-1.10); GLUCOSE 134 MG/DL (70-104); MAGNESIUM 1.8 MG/DL (1.5-2.4); POTASSIUM 3.8 MMOL/L (3.5-5.1); PREALBUMIN 13.8 MG/DL (19-36); SODIUM 140 MMOL/L (135-145); TOTAL CARBON DIOXIDE 35.4 MMOL/L (24-32); TOTAL PROTEIN 5.2 G/DL (6.4-8.2); eGFR 37 ML/MIN
[2019-05-25 03:31] LABS: TOTAL CELLS COUNTED 100
[2019-05-25 03:32] LABS: ANISOCYTOSIS 3+; ELLIPTOCYTES FEW; HYPOCHROMASIA 1+; MICROCYTOSIS 1+; PLATELET ESTIMATE DECREASED; POLYCHROMASIA FEW; TEAR DROP CELLS FEW
[2019-05-25] MEDS: ipratropium/albuterol 3ml nebule NEB SCH ×6 (03:36→23:21)
--- NOTE | 2019-05-25 05:00 | NUR ---
Left F/A saline lock outdated. While removing dressing patient pulled arm and created a skin tear. Xeroform placed & topped with gauze dressing & Coban wrap. Pt is awake & restless constantly moving ETT with tongue. Alert & is able to follow simple commands. Left chest tube with occlusive dressing & drains serous fluid. Pt is tolerating enteric feedings with 10ml residuals. No BM however is passing flatus. Repositioned on Back & awaiting am chest xray.
[2019-05-25 05:21] LABS: ABG BASE EXCESS 10.9 mmol/L (-2.0-3.0); ABG HCO3 35.3 mmol/L (22.0-26.0); ABG OXYGEN SATURATION 89.6 % (95-98); ABG PCO2 (T) 46.5 mmHg (35.0-45.0); ABG PH (T) 7.499 (7.350-7.450); ABG PO2 (T) 55.1 mmHg (83-108); ALLEN'S TEST Positive; FCOHb 1.4 % (0.5-1.5); FMetHb 0.1 % (0.3-1.12); FO2Hb 88.3 % (94-100); MINUTE VOLUME 8 L/min; PATIENT TEMPERATURE 37.2; PEEP 6 cm H2O; TOTAL HEMOGLOBIN 10.5 G/dl (14.0-17.9)
--- NOTE | 2019-05-25 06:15 | NUR ---
Problems reprioritized. Patient report given, questions answered & plan of care reviewed with Sylvain ENRIQUEZ.
--- NOTE | 2019-05-25 06:33 | NUR ---
Patient in room ICU 2040. I have received report from Eloina and had the opportunity to ask questions and assume patient care.
[2019-05-25] MEDS: budesonide 0.5mg/2ml UD nebule IH SCH ×2 (07:23→19:21)
[2019-05-25] MEDS: pantoprazole 40 MG vial IV SCH (07:42)
[2019-05-25] MEDS: midazolam 100mg in NS 100ml 100 ML IV PRN (07:42)
[2019-05-25] MEDS: cefepime 1GM in D5W 50mL 50 ML IV SCH (07:42)
[2019-05-25] MEDS: lactobacillus rhamnosus 10,000 MMU CELLS/CAPSULE PO SCH ×2 (07:43→20:48)
[2019-05-25] MEDS: apixaban 2.5mg tablet PO SCH ×2 (07:43→20:48)
[2019-05-25] MEDS: carvedilol 6.25mg tablet PO SCH ×2 (07:43→20:48)
[2019-05-25] MEDS ORDERED: etomidate 2mg/ml inj. IV ONE (09:05)
[2019-05-25] MEDS: dexmedetomidin/NS 400mcg/100ml 100 ML IV SCH ×3 (09:27→19:34)
[2019-05-25] MEDS ORDERED: thiamine inj. 100 MG in normal saline 100ml IV soln 100 ML IV ONE (11:15)
[2019-05-25] MEDS: VANCOmycin 1250MG/NS 250ml Bag 250 ML IV SCH (11:26)
[2019-05-25] MEDS ORDERED: multivitamins, therapeutics tablet PO SCH (12:00)
--- NOTE | 2019-05-25 12:28 | NUR ---
Temporary TF formula use for today with Glucerna at goal rate of 80ml/hr due to lack of Vital AF in stock; RN notified. Reassessment: Pt tolerating TF at goal.. LBM 05/22 moderate but also first noted BM since admit 6 days. Severe edema remains present per MD note w/ CT -450ml output noted as well as ~2600ml negative fluid balance past 5 days per I&O. Will continue to monitor. Recommendations: 1. Continuous TF by using Vital High Protein at goal rate of 80ml/hr; to provide 1920ml fluid, 1920kcal, 1613ml free water, and 168g protein. 2.If out of Vital AF, TF use Glucerna at goal rate of 80ml/hr. 3. Additional water flushes 300ml Q12H per MD 4. Bowel care routine 5. Daily wts; Prealbumin qM/ 6. Once extubated, advance diet as medically indicated to heart healthy Addendum: 05/25/19 at [address] Amended: Links added. Addendum: 05/25/19 at [address] RD Approves
[2019-05-25] MEDS ORDERED: DOBUTamine-DoBUTrex 500mg/D5W 250 ML IV SCH (12:35)
--- NOTE | 2019-05-25 13:50 | NUR ---
0930 Dr Young consulting, wanting a swan don catheter placed. To be placed by Dr Doe 1000- Rounds with Dr Doe. Family at bedside. Discussed placement of PA catheter to determine pulmonary HTN/ R HF/ L HF. Start etoh multi vits. made aware of inability to give lasix and coreg this am due to low bp. No Dr Clement dictation noted. Dr Doe states Racquel did see patient and to make contact with Dr Clement. 1130 PA catheter placed to Right neck with fluoroscopy by Dr Saab at [address] Doe conversation with [facility]ector, the thought is more of an LV issue. Get full set of hemodynamics and call into [facility] and start dobutamine at 4mcg. Unable to get a CI with room temperature fluid. 1330- Hemodynamics conpleted. PA 70/28, CO 5, CI 2.2 PAWP 32 SV, 64.1, SVR 736, PVR 128. 1345- Attempted call to Dr Young. Left message for a call back.
[2019-05-25] MEDS: folic acid 1mg tablet PO SCH (14:08)
[2019-05-25] MEDS: FENTANYL-0.9 % NACL/PF 100 ML IV PRN (15:42)
[2019-05-25] MEDS: MULTIVIT-MIN/FERROUS GLUCONATE 9 MG/15 ML LIQUID PO SCH (15:45)
--- NOTE | 2019-05-25 16:26 | NUR ---
1600- Spoke with Dr Doe. Reported hemodynamics before and after dobutamine. Orders for hemodynamics is am plus wedge, also am TSH, T4, Cortisol. 1630- MD rounding, reported temp of 38.1, blood cultures x2 ordered.
--- NOTE | 2019-05-25 17:32 | NUR ---
1700- patient exhibiting an increased wob, and resp rate of 33- requested that RT place patient back on a rate. Respirations now 15 on ac/vc
[2019-05-26] VITALS (32 sets, daily range): BP systolic 103–152; BP diastolic 58–86
[2019-05-26 02:50] LABS: BASOPHILS % (AUTO) 0.4 % (0-1); EOSINOPHILS # (AUTO) 0.1 X10'3 (0-0.9); EOSINOPHILS % (AUTO) 0.6 % (0-6); HEMATOCRIT 28.9 % (42.0-52.0); HEMOGLOBIN 9.3 g/dl (14.0-17.9); LYMPHOCYTES # (AUTO) 0.7 X10'3 (1.1-4.8); LYMPHOCYTES % (AUTO) 6.1 % (21-51); MEAN CORPUSCULAR HEMOGLOBIN 25.3 PG (27.0-31.0); MEAN CORPUSCULAR HGB CONC 32.1 g/dL (33.0-36.5); MEAN CORPUSCULAR VOLUME 78.8 FL (78-98); NEUTROPHILS # (AUTO) 9.1 X10'3 (1.8-7.7); NEUTROPHILS % (AUTO) 75.9 % (42-75); PLATELET COUNT 168 X10'3 (140-440); RED BLOOD COUNT 3.67 X10'6 (4.70-6.10); RED CELL DISTRIBUTION WIDTH 21.5 % (11.5-14.5)
[2019-05-26] MEDS: furosemide 40mg/4ml inj IV SCH ×5 (02:56→21:46)
[2019-05-26] MEDS: ipratropium/albuterol 3ml nebule NEB SCH ×6 (03:18→23:05)
[2019-05-26 03:19] LABS: ALANINE AMINOTRANSFERASE 34 U/L (12-78); ALBUMIN 1.8 G/DL (3.4-5.0); ALBUMIN/GLOBULIN RATIO 0.5 (1.1-1.5); ALKALINE PHOSPHATASE 183 IU/L (46-116); ANION GAP 6 (8-16); ASPARTATE AMINO TRANSFERASE 46 U/L (10-37); BILIRUBIN,TOTAL 1.2 MG/DL (0.1-1.0); BLOOD UREA NITROGEN 83 MG/DL (7-18); BUN/CREATININE RATIO 48.8 (5.4-32.0); CALCIUM 8.3 MG/DL (8.5-10.1); CHLORIDE 102 MMOL/L (99-107); GLUCOSE 135 MG/DL (70-104); POTASSIUM 3.7 MMOL/L (3.5-5.1); SODIUM 143 MMOL/L (135-145); TOTAL CARBON DIOXIDE 35.2 MMOL/L (24-32); TOTAL PROTEIN 5.7 G/DL (6.4-8.2); eGFR 39 ML/MIN
[2019-05-26] MEDS: potassium Cl 20mEq/100mL bag 100 ML IV PRN ×3 (03:34→05:30)
[2019-05-26 03:41] LABS: ABG HCO3 33.2 mmol/L (22.0-26.0); ABG OXYGEN SATURATION 89.4 % (95-98); ABG PCO2 (T) 42.7 mmHg (35.0-45.0); ABG PH (T) 7.506 (7.350-7.450); ABG PO2 (T) 52.9 mmHg (83-108); FCOHb 1.2 % (0.5-1.5); FMetHb 0.1 % (0.3-1.12); FO2Hb 88.2 % (94-100); MINUTE VOLUME 10 L/min; PATIENT TEMPERATURE 36.3; PEEP 6 cm H2O; RESPIRATORY RATE 14 b/min; RESPIRATORY RATE (OBSERVED) 18 b/min; TIDAL VOLUME 500 mL; TOTAL HEMOGLOBIN 10.6 G/dl (14.0-17.9)
[2019-05-26 04:00] LABS: TOTAL CELLS COUNTED 100
[2019-05-26 04:01] LABS: PLATELET ESTIMATE NORMAL
[2019-05-26 04:02] LABS: ANISOCYTOSIS 3+; ELLIPTOCYTES FEW; HYPOCHROMASIA 1+; MICROCYTOSIS 1+; POIKILOCYTOSIS 1+; POLYCHROMASIA FEW; TEAR DROP CELLS FEW
[2019-05-26] MEDS: cefepime 1GM in D5W 50mL 50 ML IV SCH (07:34)
[2019-05-26] MEDS: pantoprazole 40 MG vial IV SCH (07:37)
[2019-05-26] MEDS: methylnaltrexone br 12mg/0.6ml inj***SubQ only SQ SCH (07:39)
[2019-05-26] MEDS: thiamine 100mg tablet PO SCH (07:41)
[2019-05-26] MEDS: folic acid 1mg tablet PO SCH (07:41)
[2019-05-26] MEDS: apixaban 2.5mg tablet PO SCH ×2 (07:44→20:15)
[2019-05-26] MEDS: lactobacillus rhamnosus 10,000 MMU CELLS/CAPSULE PO SCH ×2 (07:47→20:15)
[2019-05-26] MEDS: MULTIVIT-MIN/FERROUS GLUCONATE 9 MG/15 ML LIQUID PO SCH (07:48)
[2019-05-26] MEDS: budesonide 0.5mg/2ml UD nebule IH SCH ×2 (08:21→19:09)
[2019-05-26] MEDS: carvedilol 6.25mg tablet PO SCH ×2 (09:18→20:15)
[2019-05-26] MEDS: DOBUTamine-DoBUTrex 500mg/D5W 250 ML IV SCH (09:22)
[2019-05-26] MEDS: VANCOmycin 1250MG/NS 250ml Bag 250 ML IV SCH (11:10)
--- NOTE | 2019-05-26 14:24 | NUR ---
F/U (05/26): Pt is still on ventilator due to biventricular failure, given Lasix hoping to have more fluid off noted per MD. Pt is tolerating TF well with GRV WNL. LBM 05/25. Will continue to monitor. Temporary TF formula use for today with Glucerna at goal rate of 80ml/hr due to lack of Vital AF in stock; RN notified. Recommendations: 1. Continuous TF by using Vital High Protein at goal rate of 80ml/hr; to provide 1920ml fluid, 1920kcal, 1613ml free water, and 168g protein. 2. If out of Vital AF, TF use Glucerna at goal rate of 80ml/hr. 3. Additional water flushes 300ml Q12H per MD 4. Bowel care routine 5. Daily wts; Prealbumin qM/ 6. Once extubated, advance diet as medically indicated to heart healthy Addendum: 05/26/19 at [address] Amended: Links added. Addendum: 05/26/19 at [address] RD agree with internet manager note
[2019-05-26] MEDS: dexmedetomidin/NS 400mcg/100ml 100 ML IV SCH ×2 (14:45→21:38)
[2019-05-26] MEDS: FENTANYL-0.9 % NACL/PF 100 ML IV PRN (16:32)
--- NOTE | 2019-05-26 17:34 | NUR ---
Discussed with Dr. Doe that a hematoma is presentnear PA sight and patient is bleeding from site despite multiple dressing changes. Requested coag panel. Dr. Doe denies due to patient is on eliquis which will not show on coag. Received order to pull PA line. Clarified PA line and no further numbers are needed. He stated no, pull the line. Will continue to monitor.
[2019-05-26] MEDS ORDERED: gelatin sponge, absorbable (Gelfoam 100) sponge TP ONE (17:45)
--- NOTE | 2019-05-26 18:14 | NUR ---
Patient in room ICU 2040. I have received report and had the opportunity to ask questions and assume patient care. swan line D/C'd. Gel foam placed. Hematoma is present & Dr Doe is aware. Pt remains in afib HR 79 paced beats occasionaly noted. Remains on vent A/C VC mode FIO2 40% pt is saturating 94%. ETT secure with anchorfast. OGT taped to ETT. PICC line left upper arm. Pt is on IV sedation Fentanyl/versed & precedex. Sedation is light.Tube feedings at goal rate 80ml/hr. Left pigtail chest tube drains serous fluid & is connected to [place] [facility] drain system with 20 cm suction. Dressing to chest tube is occlusive & intact. No distress.
--- NOTE | 2019-05-26 18:26 | NUR ---
Pa line and introducer discontinued. Gel foam applied, manual pressure held 10 mins. Gauze and tagaderm placed. Approximately 5 cm hematoma present at time of line discontinuation. Manual pressure reduced size, unable to assess hematoma at this time without interrupting hemostasis.
--- NOTE | 2019-05-26 18:29 | NUR ---
Problems reprioritized. Patient report given, questions answered & plan of care reviewed with Eloina ENRIQUEZ.
--- NOTE | 2019-05-26 18:29 | NUR ---
Patient in room ICU 2040. I have received report from Osvaldo ENRIQUEZ and had the opportunity to ask questions and assume patient care. Pt remains orally intubated ETT secure with anchorfast. OGT taped to ETT. Pt is on ACVC mode FIO2 40% Rate 14TV 500 +6 PEEP. Observed RR 16/min with oxygen saturation 94-97%. Rhythm is afib with occasional paced beats. Dobutamine drip at 4 mcg/kg/min. Left chest tube pigtail drains serous fluid. Chest tube to [place] atrium with 20 cm suction. Pt is on IV sedation Fentanyl & precedex. Right IJ with occlusive dressing & gel foam. Drainage is bloody. Left upper arm PICC line is intact. White port is occluded. Enteric feedings with Glucerna at goal rate 80ml/hr. York cath drains clear yellow urine. No distress at shift change.
--- NOTE | 2019-05-26 21:00 | NUR ---
PICC line dressing changed. CHG bath rendered, linen/gown changed.
[2019-05-26] MEDS: potassium Cl 20 mEq SR tablet PO PRN (21:46)
[2019-05-26] MEDS ORDERED: tPA-cathflo 2 MG/2 ml IV flush IVF ONE (22:45)
[2019-05-27] VITALS (24 sets, daily range): BP systolic 94–153; BP diastolic 54–96
[2019-05-27] MEDS: dexmedetomidin/NS 400mcg/100ml 100 ML IV SCH ×4 (01:58→11:16)
[2019-05-27 02:49] LABS: BASOPHILS # (AUTO) 0.1 X10'3 (0-0.2); BASOPHILS % (AUTO) 0.5 % (0-1); EOSINOPHILS # (AUTO) 0.2 X10'3 (0-0.9); EOSINOPHILS % (AUTO) 1.4 % (0-6); HEMATOCRIT 29.9 % (42.0-52.0); HEMOGLOBIN 9.3 g/dl (14.0-17.9); LYMPHOCYTES # (AUTO) 0.7 X10'3 (1.1-4.8); LYMPHOCYTES % (AUTO) 5.5 % (21-51); MEAN CORPUSCULAR HEMOGLOBIN 24.9 PG (27.0-31.0); MEAN CORPUSCULAR HGB CONC 30.9 g/dL (33.0-36.5); MEAN CORPUSCULAR VOLUME 80.5 FL (78-98); MEAN PLATELET VOLUME 7.6 FL (7.4-10.4); MONOCYTES # (AUTO) 1.8 X10'3 (0-0.9); MONOCYTES % (AUTO) 14.1 % (2-12); NEUTROPHILS % (AUTO) 78.5 % (42-75); PLATELET COUNT 188 X10'3 (140-440); RED BLOOD COUNT 3.72 X10'6 (4.70-6.10); WHITE BLOOD COUNT 12.8 X10'3 (4.5-11.0)
[2019-05-27 03:02] LABS: ALBUMIN 1.9 G/DL (3.4-5.0); ANION GAP 3 (8-16); BLOOD UREA NITROGEN 82 MG/DL (7-18); BUN/CREATININE RATIO 49.7 (5.4-32.0); CALCIUM 8.8 MG/DL (8.5-10.1); CHLORIDE 103 MMOL/L (99-107); CREATININE 1.65 MG/DL (0.60-1.10); GLUCOSE 132 MG/DL (70-104); PHOSPHORUS 4.4 MG/DL (2.3-4.5); POTASSIUM 4.3 MMOL/L (3.5-5.1); SODIUM 144 MMOL/L (135-145); TOTAL CARBON DIOXIDE 37.9 MMOL/L (24-32); eGFR 40 ML/MIN
[2019-05-27] MEDS: ipratropium/albuterol 3ml nebule NEB SCH ×6 (03:02→22:57)
[2019-05-27] MEDS: DOBUTamine-DoBUTrex 500mg/D5W 250 ML IV SCH ×2 (03:28→19:07)
[2019-05-27 03:29] LABS: PLATELET ESTIMATE NORMAL
[2019-05-27 03:30] LABS: ANISOCYTOSIS 3+; ELLIPTOCYTES FEW; HYPOCHROMASIA 1+; POLYCHROMASIA FEW
[2019-05-27 03:30] LABS: ABG BASE EXCESS 10.4 mmol/L (-2.0-3.0); ABG HCO3 35.2 mmol/L (22.0-26.0); ABG OXYGEN SATURATION 92.1 % (95-98); ABG PCO2 (T) 46.8 mmHg (35.0-45.0); ABG PH (T) 7.491 (7.350-7.450); ABG PO2 (T) 57.5 mmHg (83-108); FCOHb 0.9 % (0.5-1.5); FMetHb 0.3 % (0.3-1.12); MINUTE VOLUME 10 L/min; PATIENT TEMPERATURE 36.3; PEEP 6 cm H2O; RESPIRATORY RATE 14 b/min; RESPIRATORY RATE (OBSERVED) 21 b/min; TIDAL VOLUME 500 mL; TOTAL HEMOGLOBIN 10.6 G/dl (14.0-17.9)
[2019-05-27] MEDS: furosemide 40mg/4ml inj IV SCH ×4 (03:31→20:02)
[2019-05-27] MEDS: potassium Cl 20 mEq SR tablet PO PRN (03:36)
[2019-05-27] MEDS ORDERED: POTASSIUM BICARB 20meq eff tab 20 MEQ TABLET.EFF PO PRN (03:56)
[2019-05-27] MEDS: POTASSIUM BICARB 20meq eff tab 20 MEQ TABLET.EFF OGT PRN (04:14)
[2019-05-27] MEDS: FENTANYL-0.9 % NACL/PF 100 ML IV PRN ×3 (04:47→18:53)
--- NOTE | 2019-05-27 06:37 | NUR ---
Problems reprioritized. Patient report given, questions answered & plan of care reviewed with Marva ENRIQUEZ.
[2019-05-27] MEDS: lactobacillus rhamnosus 10,000 MMU CELLS/CAPSULE PO SCH ×2 (07:50→20:01)
[2019-05-27] MEDS: budesonide 0.5mg/2ml UD nebule IH SCH ×2 (07:50→19:24)
[2019-05-27] MEDS: pantoprazole 40 MG vial IV SCH (07:51)
[2019-05-27] MEDS: cefepime 1GM in D5W 50mL 50 ML IV SCH (07:51)
[2019-05-27] MEDS: thiamine 100mg tablet PO SCH (07:51)
[2019-05-27] MEDS: HYDROcodone/acetaminophen 10/325mg tab PO PRN (07:51)
[2019-05-27] MEDS: carvedilol 6.25mg tablet PO SCH ×2 (07:52→19:57)
[2019-05-27] MEDS: apixaban 2.5mg tablet PO SCH ×2 (07:52→20:02)
[2019-05-27] MEDS: folic acid 1mg tablet PO SCH (07:52)
[2019-05-27] MEDS: MULTIVIT-MIN/FERROUS GLUCONATE 9 MG/15 ML LIQUID PO SCH (08:00)
[2019-05-27] MEDS: VANCOmycin 1250MG/NS 250ml Bag 250 ML IV SCH (11:16)
--- NOTE | 2019-05-27 12:39 | NUR ---
REVIEWED POC DURING ROUNDS WITH DR LACY, DISCUSSED VENT SETTINGS AND CONTINUOUS LOW P02 ON THE ABG AND THAT CHEST XRAY SHOWS BILATERAL STABLE INFILTRATES, NEW ORDER RECEIVED FOR INCREASED PEEP TO 8 AND FIO2 TO 50%. SUGGESTED ALBUMIN DUE TO ALBUMIN OF 1.9 AND NO NEW ORDER RECEIVED. URINE OUTPUT HAS BEEN ADEQUATE ON LASIX AND NO NEED FOR ADJUSTMENT AT THIS TIME. PATIENTS VITALS ARE STABLE AND REMAINS ON FIXED RATE OF DOBUTAMINE AT 4MCG. PATIENTS PAIN IS ADDRESSED WITH FENTANYL AND PRN NORCO. PATIENT REMAINS ALERT AND ORIENTATED AND TENDS TO GET ANXIOUS WITH FAMILY IN THE ROOM BUT, CALM WHEN LEFT ALONE. IN VIEW OF RN AND WILL CONTINUE TO MONITOR.
[2019-05-27 17:37] LABS: ALANINE AMINOTRANSFERASE 39 U/L (12-78); ALBUMIN 1.8 G/DL (3.4-5.0); ALBUMIN/GLOBULIN RATIO 0.5 (1.1-1.5); ALKALINE PHOSPHATASE 177 IU/L (46-116); ANION GAP 4 (8-16); ASPARTATE AMINO TRANSFERASE 39 U/L (10-37); BILIRUBIN,TOTAL 0.9 MG/DL (0.1-1.0); BLOOD UREA NITROGEN 79 MG/DL (7-18); BUN/CREATININE RATIO 53.4 (5.4-32.0); CALCIUM 8.2 MG/DL (8.5-10.1); CHLORIDE 106 MMOL/L (99-107); CREATININE 1.48 MG/DL (0.60-1.10); GLUCOSE 102 MG/DL (70-104); POTASSIUM 4.3 MMOL/L (3.5-5.1); SODIUM 146 MMOL/L (135-145); TOTAL PROTEIN 5.4 G/DL (6.4-8.2); eGFR 46 ML/MIN
--- NOTE | 2019-05-27 18:20 | NUR ---
Patient in room ICU 2040. I have received report from marilou amato and had the opportunity to ask questions and assume patient care.
[2019-05-28] VITALS (24 sets, daily range): BP systolic 118–153; BP diastolic 13–87
[2019-05-28] MEDS: dexmedetomidin/NS 400mcg/100ml 100 ML IV SCH ×7 (00:15→20:48)
[2019-05-28] MEDS: furosemide 40mg/4ml inj IV SCH ×4 (02:05→20:15)
[2019-05-28 02:39] LABS: BASOPHILS # (AUTO) 0.1 X10'3 (0-0.2); BASOPHILS % (AUTO) 0.7 % (0-1); EOSINOPHILS # (AUTO) 0.2 X10'3 (0-0.9); EOSINOPHILS % (AUTO) 1.2 % (0-6); HEMATOCRIT 28.3 % (42.0-52.0); HEMOGLOBIN 8.9 g/dl (14.0-17.9); LYMPHOCYTES # (AUTO) 0.8 X10'3 (1.1-4.8); LYMPHOCYTES % (AUTO) 5.8 % (21-51); MEAN CORPUSCULAR HEMOGLOBIN 25.2 PG (27.0-31.0); MEAN CORPUSCULAR HGB CONC 31.4 g/dL (33.0-36.5); MEAN CORPUSCULAR VOLUME 80.1 FL (78-98); MEAN PLATELET VOLUME 7.4 FL (7.4-10.4); MONOCYTES # (AUTO) 1.6 X10'3 (0-0.9); MONOCYTES % (AUTO) 12.4 % (2-12); NEUTROPHILS # (AUTO) 10.6 X10'3 (1.8-7.7); NEUTROPHILS % (AUTO) 79.9 % (42-75); PLATELET COUNT 200 X10'3 (140-440); RED BLOOD COUNT 3.53 X10'6 (4.70-6.10); RED CELL DISTRIBUTION WIDTH 22.1 % (11.5-14.5); WHITE BLOOD COUNT 13.2 X10'3 (4.5-11.0)
[2019-05-28 02:52] LABS: ANION GAP 2 (8-16); BLOOD UREA NITROGEN 81 MG/DL (7-18); BUN/CREATININE RATIO 49.4 (5.4-32.0); CALCIUM 8.6 MG/DL (8.5-10.1); CHLORIDE 104 MMOL/L (99-107); CREATININE 1.64 MG/DL (0.60-1.10); GLUCOSE 116 MG/DL (70-104); MAGNESIUM 1.9 MG/DL (1.5-2.4); PHOSPHORUS 4.4 MG/DL (2.3-4.5); POTASSIUM 4.2 MMOL/L (3.5-5.1); PREALBUMIN 17.1 MG/DL (19-36); SODIUM 144 MMOL/L (135-145); TOTAL CARBON DIOXIDE 38.3 MMOL/L (24-32); eGFR 41 ML/MIN
[2019-05-28] MEDS: ipratropium/albuterol 3ml nebule NEB SCH ×6 (03:08→23:12)
[2019-05-28 03:15] LABS: PLATELET ESTIMATE NORMAL
[2019-05-28 03:16] LABS: ANISOCYTOSIS 3+
[2019-05-28 03:17] LABS: ELLIPTOCYTES FEW; HYPOCHROMASIA 1+; SCHISTOCYTES FEW
[2019-05-28 03:18] LABS: GIANT PLATELET FEW; LARGE PLATELETS FEW
[2019-05-28] MEDS: FENTANYL-0.9 % NACL/PF 100 ML IV PRN ×4 (03:21→23:08)
[2019-05-28 03:26] LABS: ABG BASE EXCESS 9.7 mmol/L (-2.0-3.0); ABG HCO3 34.2 mmol/L (22.0-26.0); ABG OXYGEN SATURATION 96.9 % (95-98); ABG PCO2 (T) 47.8 mmHg (35.0-45.0); ABG PH (T) 7.474 (7.350-7.450); ALLEN'S TEST Positive; FMetHb 0.1 % (0.3-1.12); FO2Hb 95.8 % (94-100); PATIENT TEMPERATURE 37.7; PEEP 8 cm H2O; RESPIRATORY RATE 14 b/min; RESPIRATORY RATE (OBSERVED) 15 b/min; TIDAL VOLUME 500 mL; TOTAL HEMOGLOBIN 9.7 G/dl (14.0-17.9)
[2019-05-28] MEDS: pantoprazole 40 MG vial IV SCH (07:52)
[2019-05-28] MEDS: cefepime 1GM in D5W 50mL 50 ML IV SCH (07:52)
[2019-05-28] MEDS: carvedilol 6.25mg tablet PO SCH ×2 (07:53→20:15)
[2019-05-28] MEDS: lactobacillus rhamnosus 10,000 MMU CELLS/CAPSULE PO SCH ×2 (07:53→20:15)
[2019-05-28] MEDS: apixaban 2.5mg tablet PO SCH ×2 (07:53→20:15)
[2019-05-28] MEDS: MULTIVIT-MIN/FERROUS GLUCONATE 9 MG/15 ML LIQUID PO SCH (07:53)
[2019-05-28] MEDS: HYDROcodone/acetaminophen 10/325mg tab PO PRN (07:54)
[2019-05-28] MEDS: folic acid 1mg tablet PO SCH (07:54)
[2019-05-28] MEDS: methylnaltrexone br 12mg/0.6ml inj***SubQ only SQ SCH (07:55)
[2019-05-28] MEDS: thiamine 100mg tablet PO SCH (07:55)
[2019-05-28] MEDS ORDERED: VANCOMYCIN LEVEL IV ONE (09:30)
[2019-05-28] MEDS: budesonide 0.5mg/2ml UD nebule IH SCH ×2 (11:08→19:20)
--- NOTE | 2019-05-28 12:23 | NUR ---
F/U (05/28):Pt remains intubated, persistent pleural effusion and pulm edema and slight worsening of right pleural effusion per MD note. Pt's wt fluctuating, currently -7.8kg since admit likely related to fluid on Lasix and with -8,893ml the last 5 days per I/O's. Pt is tolerating TF at goal with GRV WNL. LBM 05/27. Will continue to monitor. Recommendations: 1. Continuous TF by using Vital High Protein at goal rate of 80ml/hr; to provide 1920ml fluid, 1920kcal, 1613ml free water, and 168g protein. 2. Additional water flushes 300ml Q12H per MD 3. Bowel care routine 4. Daily wts; Prealbumin / 5. Once extubated, advance diet as medically indicated to heart healthy Addendum: 05/28/19 at [address] Amended: Links added. Addendum: 05/28/19 at [address] I have reviewed and agree with note by Desk Sergeant. Amparo Iverson RD
--- NOTE | 2019-05-28 12:30 | NUR ---
I have reviewed and agree with all medications administered and interventions performed by [facility] Student(glenn baer)
[2019-05-28] MEDS: acetaminophen 325mg/10.15ml oral unit dose solution OGT PRN (15:41)
[2019-05-28 18:21] LABS: CLARITY,URINE SLIGHTLY CLOUDY (Clear); COLOR,URINE YELLOW (Yellow); GLUCOSE, URINE NEGATIVE (Neg); KETONES,URINE NEGATIVE (Neg); LEUKOCYTE ESTERASE ,URINE NEGATIVE (Neg); NITRITES, URINE NEGATIVE (Neg); OCCULT BLOOD,URINE LARGE (Neg); PROTEIN,URINE NEGATIVE (Neg)
[2019-05-28 18:23] LABS: UA COLLECTION TYPE FOLEY CATH
[2019-05-28 18:32] LABS: WBC,URINE 0-4 /HPF (0-4)
[2019-05-28 18:33] LABS: BACTERIA,URINE NONE SEEN /HPF (Neg); HYALINE CASTS 0-3 /LPF (NEGATIVE); MUCUS STRANDS FEW /LPF (Neg); RBC,URINE 50-100 /HPF (0-2); SQUAMOUS EPITHELIAL CELL,UR FEW /LPF (FEW)
[2019-05-28] MEDS: DOBUTamine-DoBUTrex 500mg/D5W 250 ML IV SCH (18:59)
[2019-05-29] VITALS (24 sets, daily range): BP systolic 94–145; BP diastolic 50–75
[2019-05-29 01:04] LABS: BASOPHILS # (AUTO) 0.1 X10'3 (0-0.2); EOSINOPHILS # (AUTO) 0.2 X10'3 (0-0.9); HEMATOCRIT 28.1 % (42.0-52.0); HEMOGLOBIN 8.9 g/dl (14.0-17.9); LYMPHOCYTES # (AUTO) 0.9 X10'3 (1.1-4.8); LYMPHOCYTES % (AUTO) 5.9 % (21-51); MEAN CORPUSCULAR HEMOGLOBIN 25.3 PG (27.0-31.0); MEAN CORPUSCULAR HGB CONC 31.6 g/dL (33.0-36.5); MEAN CORPUSCULAR VOLUME 79.9 FL (78-98); MEAN PLATELET VOLUME 7.3 FL (7.4-10.4); MONOCYTES # (AUTO) 1.8 X10'3 (0-0.9); MONOCYTES % (AUTO) 12.4 % (2-12); NEUTROPHILS # (AUTO) 11.9 X10'3 (1.8-7.7); NEUTROPHILS % (AUTO) 79.7 % (42-75); PLATELET COUNT 213 X10'3 (140-440); RED BLOOD COUNT 3.51 X10'6 (4.70-6.10); RED CELL DISTRIBUTION WIDTH 21.7 % (11.5-14.5); WHITE BLOOD COUNT 14.9 X10'3 (4.5-11.0)
[2019-05-29 01:16] LABS: ANION GAP 5 (8-16); BLOOD UREA NITROGEN 85 MG/DL (7-18); BUN/CREATININE RATIO 53.1 (5.4-32.0); CALCIUM 8.3 MG/DL (8.5-10.1); CHLORIDE 107 MMOL/L (99-107); GLUCOSE 146 MG/DL (70-104); MAGNESIUM 1.9 MG/DL (1.5-2.4); PHOSPHORUS 4.5 MG/DL (2.3-4.5); POTASSIUM 3.6 MMOL/L (3.5-5.1); SODIUM 148 MMOL/L (135-145); TOTAL CARBON DIOXIDE 35.8 MMOL/L (24-32); eGFR 42 ML/MIN
[2019-05-29] MEDS: dexmedetomidin/NS 400mcg/100ml 100 ML IV SCH ×3 (01:32→07:46)
[2019-05-29] MEDS: furosemide 40mg/4ml inj IV SCH ×4 (02:30→20:13)
[2019-05-29] MEDS: potassium Cl 20mEq/100mL bag 100 ML IV PRN (02:31)
[2019-05-29] MEDS: POTASSIUM BICARB 20meq eff tab 20 MEQ TABLET.EFF OGT PRN ×4 (02:32→22:56)
[2019-05-29 02:37] LABS: PLATELET ESTIMATE NORMAL; POLYCHROMASIA FEW
[2019-05-29 02:38] LABS: ANISOCYTOSIS 3+; HYPOCHROMASIA 1+; MICROCYTOSIS 1+; SCHISTOCYTES 1+
[2019-05-29 03:31] LABS: ABG BASE EXCESS 10.6 mmol/L (-2.0-3.0); ABG HCO3 35.1 mmol/L (22.0-26.0); ABG OXYGEN SATURATION 90.3 % (95-98); ABG PCO2 (T) 47.9 mmHg (35.0-45.0); ABG PH (T) 7.484 (7.350-7.450); ABG PO2 (T) 59.5 mmHg (83-108); ALLEN'S TEST Positive; FCOHb 1.3 % (0.5-1.5); FMetHb 0.1 % (0.3-1.12); MINUTE VOLUME 7 L/min; PATIENT TEMPERATURE 37.5; PEEP 5 cm H2O; RESPIRATORY RATE 14 b/min; RESPIRATORY RATE (OBSERVED) 15 b/min; TIDAL VOLUME 500 mL; TOTAL HEMOGLOBIN 10.3 G/dl (14.0-17.9)
[2019-05-29] MEDS: FENTANYL-0.9 % NACL/PF 100 ML IV PRN ×4 (04:42→22:56)
--- NOTE | 2019-05-29 06:30 | NUR ---
Report received from ZOE Broussard
--- NOTE | 2019-05-29 06:43 | NUR ---
Problems reprioritized. Patient report given, questions answered & plan of care reviewed with RACHELL ENRIQUEZ.
[2019-05-29] MEDS: budesonide 0.5mg/2ml UD nebule IH SCH ×2 (06:48→19:29)
[2019-05-29] MEDS: ipratropium/albuterol 3ml nebule NEB SCH ×4 (06:48→19:28)
[2019-05-29] MEDS: pantoprazole 40 MG vial IV SCH (08:04)
[2019-05-29] MEDS: cefepime 1GM in D5W 50mL 50 ML IV SCH (08:05)
[2019-05-29] MEDS: lactobacillus rhamnosus 10,000 MMU CELLS/CAPSULE PO SCH ×2 (08:06→20:13)
[2019-05-29] MEDS: apixaban 2.5mg tablet PO SCH ×2 (08:06→20:13)
[2019-05-29] MEDS: carvedilol 6.25mg tablet PO SCH ×2 (08:06→20:13)
[2019-05-29] MEDS: MULTIVIT-MIN/FERROUS GLUCONATE 9 MG/15 ML LIQUID PO SCH (08:06)
[2019-05-29] MEDS: folic acid 1mg tablet PO SCH (08:06)
[2019-05-29] MEDS: thiamine 100mg tablet PO SCH (08:07)
--- NOTE | 2019-05-29 09:30 | NUR ---
Pt. self extubated, Nasal canula placed on patient, work of breathing increased, Dr. Doe notified.
[2019-05-29] MEDS ORDERED: midazolam 2 mg/2 ml injection ONE (09:53)
[2019-05-29] MEDS ORDERED: etomidate 2mg/ml inj. IV ONE (10:25)
[2019-05-29] MEDS: midazolam 100mg in NS 100ml 100 ML IV PRN ×2 (11:01→18:13)
[2019-05-29] MEDS: VANCOMYCIN 750MG IV in NS 250 ML IV SCH (11:12)
[2019-05-29] MEDS: DOBUTamine-DoBUTrex 500mg/D5W 250 ML IV SCH (15:09)
--- NOTE | 2019-05-29 18:45 | NUR ---
Patient in room ICU 2040. I have received report from Damaris ENRIQUEZ, and had the opportunity to ask questions and assume patient care.
--- NOTE | 2019-05-29 19:08 | NUR ---
Report given to ZOE Chavez
--- NOTE | 2019-05-29 19:45 | NUR ---
PT intubated and mechanically vented, tolerating settings well, O2 sat >94%. PT sedated with Fentanyl and Versed, tolerating well, resting comfortably. CT to LT chest with serous drainage noted in tubing. PT has Corpak to RT nare with TF running @ goal rate. York in place and draining to gravity. Bed is locked and low. Bilat soft wrist restraints in place and secure. Will continue to monitor.
--- NOTE | 2019-05-29 22:30 | NUR ---
PT resting with no s/s of distress noted at this time. VSS. Bed is locked and low. Bilat soft wrist restraints remain in place and secure. Will continue to monitor.
[2019-05-30] VITALS (24 sets, daily range): BP systolic 94–131; BP diastolic 53–84
[2019-05-30] MEDS: ipratropium/albuterol 3ml nebule NEB SCH ×7 (00:23→23:07)
[2019-05-30] MEDS: POTASSIUM BICARB 20meq eff tab 20 MEQ TABLET.EFF OGT PRN ×3 (00:30→14:25)
[2019-05-30] MEDS: furosemide 40mg/4ml inj IV SCH ×4 (02:38→19:58)
--- NOTE | 2019-05-30 03:00 | NUR ---
PT continues to rest with no s/s of distress noted at this time. VSS. Bed is locked and low. Bilat soft wrist restraints remain in place and secure. Will continue to monitor.
[2019-05-30 03:20] LABS: BASOPHILS # (AUTO) 0.1 X10'3 (0-0.2); BASOPHILS % (AUTO) 0.7 % (0-1); EOSINOPHILS # (AUTO) 0.2 X10'3 (0-0.9); EOSINOPHILS % (AUTO) 1.5 % (0-6); HEMATOCRIT 26.1 % (42.0-52.0); HEMOGLOBIN 8.2 g/dl (14.0-17.9); LYMPHOCYTES # (AUTO) 0.8 X10'3 (1.1-4.8); LYMPHOCYTES % (AUTO) 6.5 % (21-51); MEAN CORPUSCULAR HEMOGLOBIN 25.4 PG (27.0-31.0); MEAN CORPUSCULAR HGB CONC 31.4 g/dL (33.0-36.5); MEAN CORPUSCULAR VOLUME 80.7 FL (78-98); MEAN PLATELET VOLUME 7.5 FL (7.4-10.4); MONOCYTES # (AUTO) 1.5 X10'3 (0-0.9); MONOCYTES % (AUTO) 11.5 % (2-12); NEUTROPHILS # (AUTO) 10.3 X10'3 (1.8-7.7); NEUTROPHILS % (AUTO) 79.8 % (42-75); PLATELET COUNT 221 X10'3 (140-440); RED BLOOD COUNT 3.24 X10'6 (4.70-6.10); RED CELL DISTRIBUTION WIDTH 21.8 % (11.5-14.5); WHITE BLOOD COUNT 12.9 X10'3 (4.5-11.0)
[2019-05-30] MEDS: FENTANYL-0.9 % NACL/PF 100 ML IV PRN ×4 (03:20→20:10)
[2019-05-30 03:36] LABS: ALBUMIN 1.9 G/DL (3.4-5.0); ANION GAP 3 (8-16); BLOOD UREA NITROGEN 88 MG/DL (7-18); BUN/CREATININE RATIO 50.6 (5.4-32.0); CALCIUM 8.3 MG/DL (8.5-10.1); CHLORIDE 107 MMOL/L (99-107); CREATININE 1.74 MG/DL (0.60-1.10); GLUCOSE 131 MG/DL (70-104); MAGNESIUM 2.6 MG/DL (1.5-2.4); PHOSPHORUS 3.9 MG/DL (2.3-4.5); POTASSIUM 3.9 MMOL/L (3.5-5.1); SODIUM 148 MMOL/L (135-145); eGFR 38 ML/MIN
[2019-05-30] MEDS: midazolam 100mg in NS 100ml 100 ML IV PRN ×2 (04:59→15:52)
[2019-05-30 06:10] LABS: ABG HCO3 38.9 mmol/L (22.0-26.0); ABG OXYGEN SATURATION 91.8 % (95-98); ABG PCO2 (T) 52.5 mmHg (35.0-45.0); ABG PH (T) 7.489 (7.350-7.450); ABG PO2 (T) 64.4 mmHg (83-108); ALLEN'S TEST Positive; FCOHb 1.1 % (0.5-1.5); FMetHb 0.1 % (0.3-1.12); FO2Hb 90.7 % (94-100); MINUTE VOLUME 8 L/min; PATIENT TEMPERATURE 37.3; PEEP 5 cm H2O; RESPIRATORY RATE 14 b/min; RESPIRATORY RATE (OBSERVED) 14 b/min; TIDAL VOLUME 500 mL; TOTAL HEMOGLOBIN 9.5 G/dl (14.0-17.9)
[2019-05-30 06:21] LABS: ANISOCYTOSIS 3+; PLATELET ESTIMATE NORMAL
[2019-05-30 06:22] LABS: MICROCYTOSIS 1+; SCHISTOCYTES 1+
--- NOTE | 2019-05-30 06:44 | NUR ---
Problems reprioritized. Patient report given, questions answered & plan of care reviewed with Marilyn ENRIQUEZ.
[2019-05-30] MEDS: budesonide 0.5mg/2ml UD nebule IH SCH ×2 (07:15→18:57)
--- NOTE | 2019-05-30 07:45 | NUR ---
After head to toe assessment at 0719 pt. noted to not be moving right upper extreme to painful stimuli although slight right shoulder movement. Pt following commands in all other extremes, cough, gag, pupil reflexes present, yet no grasp or intentional movement noted in right extreme distal to shoulder. head stock transfer clerk notified, Stroke RN Dee called and updated regarding pt.'s status and course through hospital stay. Per Dee, she will follow up with barrel line operator when he arrives, yet doesn't believe the pt. will be a candidate for MRI or tPA considering other comorbidities. Pacemaker will be evaluated for MRI compatibility just in case
[2019-05-30] MEDS ORDERED: etomidate 2mg/ml inj. ONE (08:00)
[2019-05-30] MEDS: methylnaltrexone br 12mg/0.6ml inj***SubQ only SQ SCH (08:00)
[2019-05-30] MEDS: DOBUTamine-DoBUTrex 500mg/D5W 250 ML IV SCH (10:00)
[2019-05-30] MEDS: dexmedetomidin/NS 400mcg/100ml 100 ML IV SCH ×2 (10:07→19:31)
[2019-05-30] MEDS: apixaban 2.5mg tablet PO SCH ×2 (11:04→19:58)
[2019-05-30] MEDS: thiamine 100mg tablet PO SCH (11:05)
[2019-05-30] MEDS: lactobacillus rhamnosus 10,000 MMU CELLS/CAPSULE PO SCH ×2 (11:05→19:57)
[2019-05-30] MEDS: folic acid 1mg tablet PO SCH (11:05)
[2019-05-30] MEDS: MULTIVIT-MIN/FERROUS GLUCONATE 9 MG/15 ML LIQUID PO SCH (11:05)
[2019-05-30] MEDS: carvedilol 6.25mg tablet PO SCH ×2 (11:05→19:58)
[2019-05-30] MEDS: cefepime 1GM in D5W 50mL 50 ML IV SCH (11:06)
[2019-05-30] MEDS: pantoprazole 40 MG vial IV SCH (11:13)
[2019-05-30] MEDS: VANCOMYCIN 750MG IV in NS 250 ML IV SCH (11:46)
[2019-05-30] MEDS: potassium Cl 20mEq/100mL bag 100 ML IV PRN (18:02)
--- NOTE | 2019-05-30 18:30 | NUR ---
Patient in room ICU 2040. I have received report from ZOE Sanders and had the opportunity to ask questions and assume patient care.
[2019-05-31] VITALS (23 sets, daily range): BP systolic 90–111; BP diastolic 49–74
[2019-05-31] MEDS: furosemide 40mg/4ml inj IV SCH ×4 (02:00→20:00)
[2019-05-31] MEDS: FENTANYL-0.9 % NACL/PF 100 ML IV PRN ×4 (02:27→21:17)
[2019-05-31 03:22] LABS: ALBUMIN 1.9 G/DL (3.4-5.0); ANION GAP 7 (8-16); BLOOD UREA NITROGEN 97 MG/DL (7-18); BUN/CREATININE RATIO 52.2 (5.4-32.0); CALCIUM 8.2 MG/DL (8.5-10.1); CHLORIDE 106 MMOL/L (99-107); CREATININE 1.86 MG/DL (0.60-1.10); GLUCOSE 149 MG/DL (70-104); MAGNESIUM 2.3 MG/DL (1.5-2.4); PHOSPHORUS 3.9 MG/DL (2.3-4.5); POTASSIUM 4.3 MMOL/L (3.5-5.1); SODIUM 150 MMOL/L (135-145); TOTAL CARBON DIOXIDE 37.2 MMOL/L (24-32); eGFR 35 ML/MIN
[2019-05-31 03:35] LABS: BASOPHILS # (AUTO) 0.1 X10'3 (0-0.2); BASOPHILS % (AUTO) 0.4 % (0-1); EOSINOPHILS # (AUTO) 0.2 X10'3 (0-0.9); HEMOGLOBIN 8.4 g/dl (14.0-17.9); LYMPHOCYTES # (AUTO) 0.6 X10'3 (1.1-4.8); LYMPHOCYTES % (AUTO) 3.8 % (21-51); MEAN CORPUSCULAR HEMOGLOBIN 25.2 PG (27.0-31.0); MEAN CORPUSCULAR HGB CONC 31.1 g/dL (33.0-36.5); MEAN CORPUSCULAR VOLUME 81.1 FL (78-98); MEAN PLATELET VOLUME 7.7 FL (7.4-10.4); MONOCYTES # (AUTO) 1.6 X10'3 (0-0.9); MONOCYTES % (AUTO) 9.9 % (2-12); NEUTROPHILS # (AUTO) 13.7 X10'3 (1.8-7.7); NEUTROPHILS % (AUTO) 84.9 % (42-75); PLATELET COUNT 243 X10'3 (140-440); RED BLOOD COUNT 3.33 X10'6 (4.70-6.10); RED CELL DISTRIBUTION WIDTH 21.7 % (11.5-14.5); WHITE BLOOD COUNT 16.2 X10'3 (4.5-11.0)
[2019-05-31] MEDS: ipratropium/albuterol 3ml nebule NEB SCH ×6 (03:58→23:08)
[2019-05-31] MEDS: potassium Cl 20mEq/100mL bag 100 ML IV PRN ×2 (04:19→05:16)
[2019-05-31] MEDS: dexmedetomidin/NS 400mcg/100ml 100 ML IV SCH ×3 (04:24→22:40)
[2019-05-31] MEDS: DOBUTamine-DoBUTrex 500mg/D5W 250 ML IV SCH (04:24)
[2019-05-31 05:06] LABS: ABG BASE EXCESS 14.3 mmol/L (-2.0-3.0); ABG HCO3 39.8 mmol/L (22.0-26.0); ABG OXYGEN SATURATION 91.6 % (95-98); ABG PCO2 (T) 58.6 mmHg (35.0-45.0); ABG PH (T) 7.454 (7.350-7.450); ALLEN'S TEST Positive; FCOHb 1.5 % (0.5-1.5); FMetHb 0.1 % (0.3-1.12); FO2Hb 90.1 % (94-100); MINUTE VOLUME 8 L/min; PEEP 5 cm H2O; RESPIRATORY RATE 14 b/min; RESPIRATORY RATE (OBSERVED) 14 b/min; TIDAL VOLUME 500 mL; TOTAL HEMOGLOBIN 9.2 G/dl (14.0-17.9)
[2019-05-31] MEDS: midazolam 100mg in NS 100ml 100 ML IV PRN ×2 (05:16→23:21)
--- NOTE | 2019-05-31 06:19 | NUR ---
Problems reprioritized. Patient report given, questions answered & plan of care reviewed with ZOE Mabry.
--- NOTE | 2019-05-31 06:33 | NUR ---
Patient in room ICU 2040. I have received report from Neida ENRIQUEZ and had the opportunity to ask questions and assume patient care. Patient laying in bed with eyes closed, on ventilator mode of a/c vc fio2 40% peep of 5 sating 100%, Afib and occasionally paced, patient is sedated, fentanyl and versed infusing to L Picc, L chest tube in place, mraroquin draining to gravity, vital signs stable will continue to monitor
[2019-05-31 06:51] LABS: ANISOCYTOSIS 3+; ELLIPTOCYTES 1+; PLATELET ESTIMATE NORMAL; SCHISTOCYTES FEW
--- NOTE | 2019-05-31 07:05 | NUR ---
Patient in room ICU 2040. I have received report from Neida ENRIQUEZ and had the opportunity to ask questions and assume patient care with Clotilde Brunson RN. Addendum: 05/31/19 at 0705 by Luzma Mcdaniels RN Amended: Links added.
[2019-05-31] MEDS: budesonide 0.5mg/2ml UD nebule IH SCH ×2 (07:15→18:53)
[2019-05-31] MEDS: pantoprazole 40 MG vial IV SCH (07:34)
[2019-05-31] MEDS: carvedilol 6.25mg tablet PO SCH ×2 (07:35→20:00)
[2019-05-31] MEDS: lactobacillus rhamnosus 10,000 MMU CELLS/CAPSULE PO SCH ×2 (07:35→20:08)
[2019-05-31] MEDS: folic acid 1mg tablet PO SCH (07:35)
[2019-05-31] MEDS: thiamine 100mg tablet PO SCH (07:35)
[2019-05-31] MEDS: apixaban 2.5mg tablet PO SCH (07:35)
[2019-05-31] MEDS: MULTIVIT-MIN/FERROUS GLUCONATE 9 MG/15 ML LIQUID PO SCH (07:44)
[2019-05-31] MEDS: cefepime 1GM in D5W 50mL 50 ML IV SCH (08:48)
--- NOTE | 2019-05-31 09:02 | NUR ---
Per Dr. Doe the Dobutamine gtt is not titratable he wants a fixed rate of 4mg, will update order. No other new orders at this time
--- NOTE | 2019-05-31 09:29 | NUR ---
Dr. Doe stated pt. does need a bronch today by Dr. Ramos asa CXR is improved.
[2019-05-31] MEDS: VANCOMYCIN 750MG IV in NS 250 ML IV SCH (09:57)
--- NOTE | 2019-05-31 10:33 | NUR ---
Reassessment: Pt with a low Davin of 12, skin intact other than some skin tears to bilat arms per [facility] notes. Pt continues tolerating TF at goal rate with GRV WNL. Pt possibly to get trach and PEG per MD notes. Wt continues to fluctuate likely r/t changes in fluid status as pt receiving Lasix and with a negative fluid balance. LBM 05/31 documented as a smear however Relistor not administered 05/30 d/t pt with diarrhea per med list. Will continue to follow closely. Recommendations: 1. Continuous TF by using Vital High Protein at goal rate of 80ml/hr; to provide 1920ml total volume/day, 1920kcal, 1613ml free water, and 168g protein. 2. Additional water flushes 300ml Q12H per MD 3. Bowel care routine 4. Daily wts; Prealbumin qM/ 5. Once extubated, advance diet as medically indicated to heart healthy Addendum: 05/31/19 at [address] Amended: Links added.
--- NOTE | 2019-05-31 15:49 | NUR ---
Spoke with Annette ENRIQUEZ in Angio/IR. Annette placed orders for PEG placement for tomorrow. Stated to keep pt. NPO at 0200 since pt. should be NPO 6 hours prior to procedure. Eliquis will be held tonight and tomorrow am. Contrast will be administered through corpak at 2200 tonight.
--- NOTE | 2019-05-31 18:30 | NUR ---
Patient in room ICU 2040. I have received report from ZOE Mabry and had the opportunity to ask questions and assume patient care.
[2019-05-31] MEDS ORDERED: diatr meglu/diatrizoate 30ml oral sol.-(3 dose) bottle NG ONE (22:00)
[2019-06-01] VITALS (28 sets, daily range): BP systolic 95–126; BP diastolic 7–81
[2019-06-01] MEDS: DOBUTamine-DoBUTrex 500mg/D5W 250 ML IV SCH ×3 (01:08→22:20)
--- NOTE | 2019-06-01 02:00 | NUR ---
Tube feedings turned off at this time. Patient now NPO for trach and peg later today.
[2019-06-01 02:10] LABS: BASOPHILS # (AUTO) 0.1 X10'3 (0-0.2); BASOPHILS % (AUTO) 0.6 % (0-1); EOSINOPHILS # (AUTO) 0.2 X10'3 (0-0.9); EOSINOPHILS % (AUTO) 1.2 % (0-6); HEMATOCRIT 25.9 % (42.0-52.0); HEMOGLOBIN 8.1 g/dl (14.0-17.9); LYMPHOCYTES # (AUTO) 0.9 X10'3 (1.1-4.8); LYMPHOCYTES % (AUTO) 7.2 % (21-51); MEAN CORPUSCULAR HEMOGLOBIN 25.4 PG (27.0-31.0); MEAN CORPUSCULAR HGB CONC 31.2 g/dL (33.0-36.5); MEAN CORPUSCULAR VOLUME 81.5 FL (78-98); MEAN PLATELET VOLUME 7.1 FL (7.4-10.4); MONOCYTES # (AUTO) 1.5 X10'3 (0-0.9); PLATELET COUNT 301 X10'3 (140-440); RED BLOOD COUNT 3.17 X10'6 (4.70-6.10); RED CELL DISTRIBUTION WIDTH 21.4 % (11.5-14.5); WHITE BLOOD COUNT 12.7 X10'3 (4.5-11.0)
--- NOTE | 2019-06-01 02:20 | NUR ---
Wound pictures taken of all wounds and placed in chart. New wound found to right hip, picture taken and placed in chart. Charge nurse aware. Patient has been predominately on right side per MD orders.
[2019-06-01 02:34] LABS: ALANINE AMINOTRANSFERASE 32 U/L (12-78); ALBUMIN 1.9 G/DL (3.4-5.0); ALBUMIN/GLOBULIN RATIO 0.5 (1.1-1.5); ALKALINE PHOSPHATASE 230 IU/L (46-116); ANION GAP 7 (8-16); ASPARTATE AMINO TRANSFERASE 37 U/L (10-37); BLOOD UREA NITROGEN 100 MG/DL (7-18); BUN/CREATININE RATIO 48.1 (5.4-32.0); CALCIUM 8.6 MG/DL (8.5-10.1); CHLORIDE 110 MMOL/L (99-107); CREATININE 2.08 MG/DL (0.60-1.10); GLUCOSE 150 MG/DL (70-104); MAGNESIUM 2.7 MG/DL (1.5-2.4); POTASSIUM 4.1 MMOL/L (3.5-5.1); PREALBUMIN 17.3 MG/DL (19-36); SODIUM 151 MMOL/L (135-145); TOTAL CARBON DIOXIDE 34.4 MMOL/L (24-32); eGFR 31 ML/MIN
[2019-06-01] MEDS: furosemide 40mg/4ml inj IV SCH ×4 (02:53→19:53)
[2019-06-01] MEDS: FENTANYL-0.9 % NACL/PF 100 ML IV PRN ×3 (03:25→22:35)
[2019-06-01] MEDS: ipratropium/albuterol 3ml nebule NEB SCH ×6 (03:47→23:13)
[2019-06-01] MEDS: potassium Cl 20mEq/100mL bag 100 ML IV PRN ×2 (04:58→10:30)
[2019-06-01 05:16] LABS: ABG HCO3 35.4 mmol/L (22.0-26.0); ABG OXYGEN SATURATION 89.1 % (95-98); ABG PCO2 (T) 41.6 mmHg (35.0-45.0); ABG PH (T) 7.549 (7.350-7.450); ABG PO2 (T) 52.8 mmHg (83-108); ALLEN'S TEST Positive; FCOHb 1.1 % (0.5-1.5); FMetHb 0.3 % (0.3-1.12); FO2Hb 87.9 % (94-100); MINUTE VOLUME 9 L/min; PATIENT TEMPERATURE 37.2; PEEP 5 cm H2O; RESPIRATORY RATE 18 b/min; RESPIRATORY RATE (OBSERVED) 18 b/min; TIDAL VOLUME 500 mL; TOTAL HEMOGLOBIN 9.5 G/dl (14.0-17.9)
[2019-06-01 06:11] LABS: ANISOCYTOSIS 3+; HYPOCHROMASIA 1+; PLATELET ESTIMATE NORMAL
[2019-06-01 06:12] LABS: ELLIPTOCYTES FEW; SCHISTOCYTES FEW
--- NOTE | 2019-06-01 06:27 | NUR ---
Problems reprioritized. Patient report given, questions answered & plan of care reviewed with ZOE Briones.
--- NOTE | 2019-06-01 06:45 | NUR ---
Patient in room ICU 2040. I have received report from ZOE Carrasquillo and had the opportunity to ask questions and assume patient care.
[2019-06-01] MEDS: budesonide 0.5mg/2ml UD nebule IH SCH ×2 (06:53→18:54)
[2019-06-01] MEDS: pantoprazole 40 MG vial IV SCH (07:40)
[2019-06-01] MEDS: cefepime 1GM in D5W 50mL 50 ML IV SCH (07:47)
[2019-06-01] MEDS: folic acid 1mg tablet PO SCH (08:00)
[2019-06-01] MEDS: carvedilol 6.25mg tablet PO SCH ×2 (08:00→18:55)
[2019-06-01] MEDS: lactobacillus rhamnosus 10,000 MMU CELLS/CAPSULE PO SCH ×2 (08:00→18:55)
[2019-06-01] MEDS: MULTIVIT-MIN/FERROUS GLUCONATE 9 MG/15 ML LIQUID PO SCH (08:00)
[2019-06-01] MEDS: thiamine 100mg tablet PO SCH (08:00)
[2019-06-01] MEDS: methylnaltrexone br 12mg/0.6ml inj***SubQ only SQ SCH (09:16)
[2019-06-01] MEDS ORDERED: VANCOMYCIN LEVEL IV ONE (09:30)
--- NOTE | 2019-06-01 11:48 | NUR ---
, family and traffic worker at the bedside. Patient has been repositioned with pillows.
--- NOTE | 2019-06-01 13:42 | NUR ---
Pt originally presented to ED with shortness of breath. He had recently been discharged after being treated for CHF exacerbation. He has hx of right sided HF, HTN, COPD and chronic hypoxemic respiratory failure. He was admitted to the floor and then coded requiring emergent intubation and after pulse was restored pt was taken to ICU. He has been agitated and self extubated on 05/29 and WOB increased requiring pt to again be intubated. Notes from the volunteer services manager indicate poor prognosis but family is hoping for transfer to [facility] to initiate meaningful pulmonary recovery. Over the weekend it was noted that the pt was not moving his right side while able to follow commands to move left side. Stroke alert was initiated but the pt is not a candidate for MRI or tPA due to comorbidities. Prealbumin was 10.1 mg/dl on admit. Renal function is poor with BUN 100 mg/dl, creatinine of 2.08 mg/dl and estimated GFR of 31 ml/min. See TOM for further lab review as most labs are out of normal ranges. Pt has a persistent left pleural effusion with CT in place. Arrived at bedside for assessment with RW. New DTI noted to the right lateral malleolus. Heels floated with area remaining free of any pressure. Right hip presents with new onset skin tear. Pt with multiple skin tears due to generalized edema with thin, frail skin that is greatly compromised by immobility and poor nutritional status at this time. Will monitor pt closely for any other changes. Addendum: 06/01/19 at 1342 by Jack Hernandez RN Amended: Links added.
[2019-06-01] MEDS ORDERED: LIDOcaine 1%/PF 5ML 10 MG/ML VIAL SQ ONE (14:00)
[2019-06-01] MEDS ORDERED: glucagon, human recombinant 1mg kit IV ONE (14:00)
[2019-06-01] MEDS ORDERED: fentaNYL/PF 50MCG/1 ML 2ML syringe IV PRN (14:00)
[2019-06-01] MEDS ORDERED: midazolam 2 mg/2 ml injection IV PRN (14:00)
[2019-06-01] MEDS ORDERED: LIDOcaine 1% (10mg/ml) 2ml vial SQ ONE (14:20)
[2019-06-01] MEDS ORDERED: LIDOcaine 1%/PF 5ML 10 MG/ML VIAL ONE (14:23)
[2019-06-01] MEDS ORDERED: iohexol 300 MG/1 ML 50ml polymer ONE (14:23)
--- NOTE | 2019-06-01 14:26 | NUR ---
Patient has been transferred to angio via bed. ZOE Cornejo; Arabella RN; Kee, RT. Will await patients return. has been notified via telephone.
[2019-06-01] MEDS ORDERED: glucagon, human recombinant 1mg kit ONE (14:46)
[2019-06-01] MEDS ORDERED: midazolam 2 mg/2 ml injection ONE (15:01)
[2019-06-01] MEDS ORDERED: zinc oxide ointment 30gm tube TP PRN (15:10)
--- NOTE | 2019-06-01 17:40 | NUR ---
Dr. Young at the bedside and has called the patients to inform her that the patients trach procedure will be in the morning at approx. 0800. Patient is resting comfortably. Will continue to monitor patient.
[2019-06-01] MEDS: dexmedetomidin/NS 400mcg/100ml 100 ML IV SCH (17:52)
--- NOTE | 2019-06-01 18:21 | NUR ---
Problems reprioritized. Patient report given, questions answered & plan of care reviewed with ZOE Carrasquillo.
--- NOTE | 2019-06-01 18:30 | NUR ---
Patient in room ICU 2040. I have received report from ZOE Briones and had the opportunity to ask questions and assume patient care.
[2019-06-01] MEDS: midazolam 100mg in NS 100ml 100 ML IV PRN (18:54)
[2019-06-01] MEDS: apixaban 2.5mg tablet PO SCH (20:00)
[2019-06-02] VITALS (24 sets, daily range): BP systolic 95–142; BP diastolic 51–85
[2019-06-02] MEDS: dexmedetomidin/NS 400mcg/100ml 100 ML IV SCH ×3 (00:25→21:25)
[2019-06-02] MEDS: furosemide 40mg/4ml inj IV SCH ×4 (02:00→20:49)
[2019-06-02 03:16] LABS: BASOPHILS # (AUTO) 0.1 X10'3 (0-0.2); BASOPHILS % (AUTO) 0.7 % (0-1); EOSINOPHILS # (AUTO) 0.2 X10'3 (0-0.9); EOSINOPHILS % (AUTO) 1.4 % (0-6); HEMATOCRIT 28.1 % (42.0-52.0); HEMOGLOBIN 8.9 g/dl (14.0-17.9); MEAN CORPUSCULAR HEMOGLOBIN 25.6 PG (27.0-31.0); MEAN CORPUSCULAR HGB CONC 31.8 g/dL (33.0-36.5); MEAN CORPUSCULAR VOLUME 80.6 FL (78-98); MEAN PLATELET VOLUME 7.4 FL (7.4-10.4); MONOCYTES # (AUTO) 1.5 X10'3 (0-0.9); MONOCYTES % (AUTO) 13.3 % (2-12); NEUTROPHILS # (AUTO) 8.4 X10'3 (1.8-7.7); NEUTROPHILS % (AUTO) 75.6 % (42-75); PLATELET COUNT 399 X10'3 (140-440); RED BLOOD COUNT 3.48 X10'6 (4.70-6.10); RED CELL DISTRIBUTION WIDTH 21.6 % (11.5-14.5); WHITE BLOOD COUNT 11.2 X10'3 (4.5-11.0)
[2019-06-02] MEDS: ipratropium/albuterol 3ml nebule NEB SCH ×6 (03:26→23:14)
[2019-06-02 03:31] LABS: ALANINE AMINOTRANSFERASE 30 U/L (12-78); ALBUMIN 1.9 G/DL (3.4-5.0); ALBUMIN/GLOBULIN RATIO 0.5 (1.1-1.5); ALKALINE PHOSPHATASE 205 IU/L (46-116); ANION GAP 7 (8-16); ASPARTATE AMINO TRANSFERASE 46 U/L (10-37); BILIRUBIN,TOTAL 1.3 MG/DL (0.1-1.0); BLOOD UREA NITROGEN 95 MG/DL (7-18); BUN/CREATININE RATIO 46.8 (5.4-32.0); CALCIUM 8.8 MG/DL (8.5-10.1); CHLORIDE 112 MMOL/L (99-107); CREATININE 2.03 MG/DL (0.60-1.10); GLUCOSE 98 MG/DL (70-104); MAGNESIUM 2.7 MG/DL (1.5-2.4); PHOSPHORUS 4.6 MG/DL (2.3-4.5); POTASSIUM 3.9 MMOL/L (3.5-5.1); SODIUM 154 MMOL/L (135-145); TOTAL CARBON DIOXIDE 34.8 MMOL/L (24-32); eGFR 32 ML/MIN
[2019-06-02] MEDS: potassium Cl 20mEq/100mL bag 100 ML IV PRN ×2 (03:49→04:58)
[2019-06-02 04:10] LABS: PLATELET ESTIMATE NORMAL
[2019-06-02 04:12] LABS: ANISOCYTOSIS 3+; POLYCHROMASIA FEW
[2019-06-02 04:13] LABS: ROULEAUX 1+; TEAR DROP CELLS FEW
[2019-06-02 04:14] LABS: GIANT PLATELET FEW; SCHISTOCYTES FEW
[2019-06-02 04:15] LABS: HYPOCHROMASIA 1+
[2019-06-02 05:26] LABS: ABG BASE EXCESS 8.4 mmol/L (-2.0-3.0); ABG HCO3 30.3 mmol/L (22.0-26.0); ABG PCO2 (T) 31.9 mmHg (35.0-45.0); ABG PH (T) 7.596 (7.350-7.450); ABG PO2 (T) 58.9 mmHg (83-108); ALLEN'S TEST Positive; FCOHb 0.9 % (0.5-1.5); FO2Hb 90.2 % (94-100); MINUTE VOLUME 8 L/min; PATIENT TEMPERATURE 37.2; PEEP 5 cm H2O; RESPIRATORY RATE 16 b/min; RESPIRATORY RATE (OBSERVED) 16 b/min; TIDAL VOLUME 500 mL; TOTAL HEMOGLOBIN 9.3 G/dl (14.0-17.9)
--- NOTE | 2019-06-02 06:31 | NUR ---
Problems reprioritized. Patient report given, questions answered & plan of care reviewed with ZOE Riley.
[2019-06-02] MEDS: lactobacillus rhamnosus 10,000 MMU CELLS/CAPSULE PO SCH ×2 (07:11→20:50)
[2019-06-02] MEDS: carvedilol 6.25mg tablet PO SCH ×2 (07:11→20:49)
[2019-06-02] MEDS: MULTIVIT-MIN/FERROUS GLUCONATE 9 MG/15 ML LIQUID PO SCH (07:11)
[2019-06-02] MEDS: thiamine 100mg tablet PO SCH (07:11)
[2019-06-02] MEDS: folic acid 1mg tablet PO SCH (07:11)
[2019-06-02] MEDS: cefepime 1GM in D5W 50mL 50 ML IV SCH (07:11)
[2019-06-02] MEDS: pantoprazole 40 MG vial IV SCH (07:11)
[2019-06-02] MEDS: apixaban 2.5mg tablet PO SCH ×2 (07:13→20:49)
[2019-06-02] MEDS: budesonide 0.5mg/2ml UD nebule IH SCH ×2 (07:30→18:52)
--- NOTE | 2019-06-02 09:00 | NUR ---
Atrium for left chest tube tipped during tracheostomy procedure, new atrium placed totals adjusted back to 0. Will continue to monitor.
[2019-06-02] MEDS: FENTANYL-0.9 % NACL/PF 100 ML IV PRN (09:13)
--- NOTE | 2019-06-02 14:40 | NUR ---
TF consult: Pt s/p PEG placement not to be used until 6 hours after placement. Per RN pt had PEG placed yesterday. Pt remains intubated with trach. TF recommendations below remain in place to meet patient's nutrient needs. Patient's serum Na 154 today which has been steadily increasing, fluid flushes to be 150 mL Q4H per MD. LBM 06/01, receiving routine Relistor. Will continue to follow closely. Recommendations: 1. Continuous TF via PEG using Vital High Protein at goal rate of 80ml/hr; to provide 1920ml total volume/day, 1920kcal, 1613ml free water, and 168g protein. 2. Additional water flushes 150 mL Q4H per MD; monitor Na and adjust per hydration needs; Na 154 today 3. Bowel care routine 4. Daily wts; Prealbumin qM/ 5. Once extubated, advance diet as medically indicated to heart healthy Addendum: 06/02/19 at [address] Amended: Links added.
--- NOTE | 2019-06-02 16:00 | NUR ---
Changed Left Upper PICC dressing and provided wound care to right upper arm. Cleansed site with NS patted dry with gauze, applied xeroform, optilock, kerlix and medipore. PAtient tolerated well, will continue to monitor.
[2019-06-02] MEDS: DOBUTamine-DoBUTrex 500mg/D5W 250 ML IV SCH (17:41)
--- NOTE | 2019-06-02 18:30 | NUR ---
Patient in room ICU 2040. I have received report from Osvaldo ENRIQUEZ and had the opportunity to ask questions and assume patient care.
[2019-06-03] VITALS (23 sets, daily range): BP systolic 94–138; BP diastolic 61–98
[2019-06-03] MEDS: furosemide 40mg/4ml inj IV SCH ×3 (01:35→14:00)
[2019-06-03] MEDS: dexmedetomidin/NS 400mcg/100ml 100 ML IV SCH ×2 (01:35→12:59)
[2019-06-03 02:48] LABS: BASOPHILS # (AUTO) 0.1 X10'3 (0-0.2); BASOPHILS % (AUTO) 0.7 % (0-1); EOSINOPHILS # (AUTO) 0.2 X10'3 (0-0.9); EOSINOPHILS % (AUTO) 1.9 % (0-6); HEMATOCRIT 27.6 % (42.0-52.0); HEMOGLOBIN 8.9 g/dl (14.0-17.9); LYMPHOCYTES # (AUTO) 0.9 X10'3 (1.1-4.8); LYMPHOCYTES % (AUTO) 8.2 % (21-51); MEAN CORPUSCULAR HEMOGLOBIN 26.1 PG (27.0-31.0); MEAN CORPUSCULAR HGB CONC 32.2 g/dL (33.0-36.5); MEAN PLATELET VOLUME 6.8 FL (7.4-10.4); MONOCYTES # (AUTO) 1.5 X10'3 (0-0.9); MONOCYTES % (AUTO) 14.2 % (2-12); NEUTROPHILS # (AUTO) 8.1 X10'3 (1.8-7.7); PLATELET COUNT 471 X10'3 (140-440); RED CELL DISTRIBUTION WIDTH 21.6 % (11.5-14.5); WHITE BLOOD COUNT 10.9 X10'3 (4.5-11.0)
[2019-06-03 03:11] LABS: ALANINE AMINOTRANSFERASE 25 U/L (12-78); ALBUMIN 1.9 G/DL (3.4-5.0); ALBUMIN/GLOBULIN RATIO 0.4 (1.1-1.5); ALKALINE PHOSPHATASE 197 IU/L (46-116); ANION GAP 8 (8-16); ASPARTATE AMINO TRANSFERASE 41 U/L (10-37); BILIRUBIN,TOTAL 1.4 MG/DL (0.1-1.0); BLOOD UREA NITROGEN 91 MG/DL (7-18); BUN/CREATININE RATIO 40.6 (5.4-32.0); CALCIUM 8.7 MG/DL (8.5-10.1); CHLORIDE 112 MMOL/L (99-107); CREATININE 2.24 MG/DL (0.60-1.10); GLUCOSE 136 MG/DL (70-104); MAGNESIUM 2.5 MG/DL (1.5-2.4); PHOSPHORUS 5.9 MG/DL (2.3-4.5); POTASSIUM 3.7 MMOL/L (3.5-5.1); SODIUM 152 MMOL/L (135-145); TOTAL CARBON DIOXIDE 32.5 MMOL/L (24-32); TOTAL PROTEIN 6.5 G/DL (6.4-8.2); eGFR 28 ML/MIN
[2019-06-03 03:25] LABS: PLATELET ESTIMATE INCREASED
[2019-06-03 03:27] LABS: ANISOCYTOSIS 3+
[2019-06-03 03:29] LABS: HYPOCHROMASIA 1+; POLYCHROMASIA FEW; ROULEAUX 1+; SCHISTOCYTES 1+
[2019-06-03 03:30] LABS: LARGE PLATELETS FEW; TEAR DROP CELLS FEW
[2019-06-03] MEDS: ipratropium/albuterol 3ml nebule NEB SCH ×6 (03:36→23:52)
[2019-06-03 05:16] LABS: ABG BASE EXCESS 6.8 mmol/L (-2.0-3.0); ABG HCO3 30.8 mmol/L (22.0-26.0); ABG OXYGEN SATURATION 93.4 % (95-98); ABG PCO2 (T) 42.1 mmHg (35.0-45.0); ABG PH (T) 7.483 (7.350-7.450); ABG PO2 (T) 69.5 mmHg (83-108); ALLEN'S TEST Positive; FCOHb 1.1 % (0.5-1.5); FMetHb 0.1 % (0.3-1.12); FO2Hb 92.3 % (94-100); MINUTE VOLUME 10 L/min; PATIENT TEMPERATURE 37.4; PEEP 5 cm H2O; RESPIRATORY RATE 14 b/min; RESPIRATORY RATE (OBSERVED) 14 b/min; TIDAL VOLUME 500 mL; TOTAL HEMOGLOBIN 9.9 G/dl (14.0-17.9)
--- NOTE | 2019-06-03 06:39 | NUR ---
Problems reprioritized. Patient report given, questions answered & plan of care reviewed with José Miguel/Art RN.
[2019-06-03] MEDS: budesonide 0.5mg/2ml UD nebule IH SCH ×2 (07:17→19:46)
--- NOTE | 2019-06-03 07:35 | NUR ---
tube feed increased to 60 per orders
[2019-06-03] MEDS: methylnaltrexone br 12mg/0.6ml inj***SubQ only SQ SCH (08:00)
[2019-06-03] MEDS: lactobacillus rhamnosus 10,000 MMU CELLS/CAPSULE PO SCH (08:53)
[2019-06-03] MEDS: carvedilol 6.25mg tablet PO SCH (08:53)
[2019-06-03] MEDS: apixaban 2.5mg tablet PO SCH (08:54)
[2019-06-03] MEDS: folic acid 1mg tablet PO SCH (08:55)
[2019-06-03] MEDS: thiamine 100mg tablet PO SCH (08:55)
[2019-06-03] MEDS: pantoprazole 40 MG vial IV SCH (08:55)
[2019-06-03] MEDS: MULTIVIT-MIN/FERROUS GLUCONATE 9 MG/15 ML LIQUID PO SCH (08:55)
[2019-06-03] MEDS: cefepime 1GM in D5W 50mL 50 ML IV SCH (08:58)
--- NOTE | 2019-06-03 11:00 | NUR ---
Chest tube pulled by PA at bedside. Patient tolerated well
[2019-06-03] MEDS ORDERED: folic acid 1mg tablet PEG SCH (11:14)
[2019-06-03] MEDS ORDERED: MULTIVIT-MIN/FERROUS GLUCONATE 9 MG/15 ML LIQUID PEG SCH (11:15)
[2019-06-03] MEDS ORDERED: thiamine 100mg tablet PEG SCH (11:16)
[2019-06-03] MEDS: DOBUTamine-DoBUTrex 500mg/D5W 250 ML IV SCH (12:57)
--- NOTE | 2019-06-03 18:30 | NUR ---
Patient in room ICU 2040. I have received report from Brian ENRIQUEZ and had the opportunity to ask questions and assume patient care.
[2019-06-03] MEDS: POTASSIUM BICARB 20meq eff tab 20 MEQ TABLET.EFF OGT PRN ×2 (19:00→20:25)
[2019-06-03] MEDS: carvedilol 6.25mg tablet PEG SCH (20:25)
[2019-06-03] MEDS: apixaban 2.5mg tablet PEG SCH (20:26)
[2019-06-03] MEDS: lactobacillus rhamnosus 10,000 MMU CELLS/CAPSULE PEG SCH (20:26)
[2019-06-03] MEDS: acetaminophen 325mg/10.15ml oral unit dose solution OGT PRN (20:27)
[2019-06-03] MEDS ORDERED: risperiDONE 0.5mg tablet PEG SCH (21:00)
[2019-06-04] VITALS (14 sets, daily range): BP systolic 106–136; BP diastolic 55–86
[2019-06-04 02:45] LABS: BASOPHILS # (AUTO) 0.1 X10'3 (0-0.2); BASOPHILS % (AUTO) 0.6 % (0-1); EOSINOPHILS # (AUTO) 0.2 X10'3 (0-0.9); EOSINOPHILS % (AUTO) 1.6 % (0-6); HEMATOCRIT 26.6 % (42.0-52.0); HEMOGLOBIN 8.3 g/dl (14.0-17.9); LYMPHOCYTES # (AUTO) 0.9 X10'3 (1.1-4.8); LYMPHOCYTES % (AUTO) 6.8 % (21-51); MEAN CORPUSCULAR HEMOGLOBIN 25.3 PG (27.0-31.0); MEAN CORPUSCULAR HGB CONC 31.1 g/dL (33.0-36.5); MEAN CORPUSCULAR VOLUME 81.5 FL (78-98); MONOCYTES # (AUTO) 1.9 X10'3 (0-0.9); NEUTROPHILS # (AUTO) 10.3 X10'3 (1.8-7.7); PLATELET COUNT 491 X10'3 (140-440); RED BLOOD COUNT 3.27 X10'6 (4.70-6.10); RED CELL DISTRIBUTION WIDTH 21.2 % (11.5-14.5); WHITE BLOOD COUNT 13.4 X10'3 (4.5-11.0)
[2019-06-04 03:10] LABS: PLATELET ESTIMATE INCREASED
[2019-06-04 03:11] LABS: ANISOCYTOSIS 3+; SCHISTOCYTES FEW
[2019-06-04 03:12] LABS: ELLIPTOCYTES FEW; POLYCHROMASIA 1+
[2019-06-04 03:13] LABS: ALANINE AMINOTRANSFERASE 26 U/L (12-78); ALBUMIN 1.9 G/DL (3.4-5.0); ALBUMIN/GLOBULIN RATIO 0.4 (1.1-1.5); ALKALINE PHOSPHATASE 220 IU/L (46-116); ANION GAP 9 (8-16); ASPARTATE AMINO TRANSFERASE 33 U/L (10-37); BILIRUBIN,TOTAL 1.3 MG/DL (0.1-1.0); BLOOD UREA NITROGEN 86 MG/DL (7-18); BUN/CREATININE RATIO 41.3 (5.4-32.0); CALCIUM 8.4 MG/DL (8.5-10.1); CHLORIDE 111 MMOL/L (99-107); CREATININE 2.08 MG/DL (0.60-1.10); GLUCOSE 158 MG/DL (70-104); MAGNESIUM 2.4 MG/DL (1.5-2.4); PHOSPHORUS 3.8 MG/DL (2.3-4.5); POTASSIUM 3.3 MMOL/L (3.5-5.1); SODIUM 151 MMOL/L (135-145); TOTAL CARBON DIOXIDE 31.4 MMOL/L (24-32); TOTAL PROTEIN 6.4 G/DL (6.4-8.2); eGFR 31 ML/MIN
[2019-06-04] MEDS: ipratropium/albuterol 3ml nebule NEB SCH ×3 (03:25→12:01)
[2019-06-04] MEDS: potassium Cl 20mEq/100mL bag 100 ML IV PRN ×4 (03:44→06:41)
[2019-06-04 05:26] LABS: ABG OXYGEN SATURATION 91.2 % (95-98); ABG PCO2 (T) 42.6 mmHg (35.0-45.0); ABG PH (T) 7.481 (7.350-7.450); ABG PO2 (T) 63.8 mmHg (83-108); ALLEN'S TEST Positive; FCOHb 0.3 % (0.5-1.5); FMetHb 0.2 % (0.3-1.12); FO2Hb 90.7 % (94-100); MINUTE VOLUME 9 L/min; PATIENT TEMPERATURE 37.5; PEEP 5 cm H2O; RESPIRATORY RATE 14 b/min; RESPIRATORY RATE (OBSERVED) 18 b/min; TIDAL VOLUME 500 mL; TOTAL HEMOGLOBIN 9.4 G/dl (14.0-17.9)
--- NOTE | 2019-06-04 06:31 | NUR ---
Patient in room ICU 2040. I have received report from José Miguel ENRIQUEZ and had the opportunity to ask questions and assume patient care. Addendum: 06/04/19 at 0631 by Kenisha Lopez RN Problems reprioritized. Patient report given, questions answered & plan of care reviewed with José Miguel ENRIQUEZ.
[2019-06-04] MEDS: budesonide 0.5mg/2ml UD nebule IH SCH (07:44)
[2019-06-04] MEDS: cefepime 1GM in D5W 50mL 50 ML IV SCH (08:38)
[2019-06-04] MEDS: DOBUTamine-DoBUTrex 500mg/D5W 250 ML IV SCH (08:40)
[2019-06-04] MEDS: pantoprazole 40 MG vial IV SCH (08:40)
[2019-06-04] MEDS: lactobacillus rhamnosus 10,000 MMU CELLS/CAPSULE PEG SCH (08:41)
[2019-06-04] MEDS: apixaban 2.5mg tablet PEG SCH (08:41)
[2019-06-04] MEDS: carvedilol 6.25mg tablet PEG SCH (08:42)
--- NOTE | 2019-06-04 13:12 | NUR ---
Pt discharged to [facility] via paramedics. Report called to ZOE Quintero. All questions answered, and no concerns noted. VSS upon discharge. All belongings sent with pt. Will continue to monitor. Addendum: 06/04/19 at 1325 by Clayton Raymond RN Pt noted to be missing top dentures. Pt with full lower dentures in place. Full upper dentures not found in room.
== END 2019-06-04 13:13 | DRG 4 ==
LOC: ER 17:19 → ED HOLD 19:49 → EDBEDREQ 20:09 → PCU 3S 21:52 → ICU 2S 05-17 08:25
PROVIDERS: ADMIT Internal Medicine; ATTEND Hospitalist
PROC: 5A1955Z Respiratory Ventilation, Greater than 96 Consecutive Hours (ICD-10-PCS; principal; 2019-05-17)
PROC: 0BH17EZ Insertion of Endotracheal Airway into Trachea, Via Natural or Artificial Opening (ICD-10-PCS; 2019-05-17)
PROC: 04HY32Z Insertion of Monitoring Device into Lower Artery, Percutaneous Approach (ICD-10-PCS; 2019-05-17)
PROC: 4A133B1 Monitoring of Arterial Pressure, Peripheral, Percutaneous Approach (ICD-10-PCS; 2019-05-17)
PROC: 4A133J1 Monitoring of Arterial Pulse, Peripheral, Percutaneous Approach (ICD-10-PCS; 2019-05-17)
PROC: 5A12012 Performance of Cardiac Output, Single, Manual (ICD-10-PCS; 2019-05-18)
PROC: 02HV33Z Insertion of Infusion Device into Superior Vena Cava, Percutaneous Approach (ICD-10-PCS; 2019-05-18)
PROC: 0W9B30Z Drainage of Left Pleural Cavity with Drainage Device, Percutaneous Approach (ICD-10-PCS; 2019-05-19)
PROC: 4A10X4Z Monitoring of Central Nervous Electrical Activity, External Approach (ICD-10-PCS; 2019-05-19)
PROC: 02HV33Z Insertion of Infusion Device into Superior Vena Cava, Percutaneous Approach (ICD-10-PCS; 2019-05-20)
PROC: B548ZZA Ultrasonography of Superior Vena Cava, Guidance (ICD-10-PCS; 2019-05-20)
PROC: 0W993ZZ Drainage of Right Pleural Cavity, Percutaneous Approach (ICD-10-PCS; 2019-05-22)
PROC: 30233N1 Transfusion of Nonautologous Red Blood Cells into Peripheral Vein, Percutaneous Approach (ICD-10-PCS; 2019-05-23)
PROC: 0D9630Z Drainage of Stomach with Drainage Device, Percutaneous Approach (ICD-10-PCS; 2019-06-01)
PROC: 0B113F4 Bypass Trachea to Cutaneous with Tracheostomy Device, Percutaneous Approach (ICD-10-PCS; 2019-06-02)
DX: J96.21 Acute and chronic respiratory failure with hypoxia (principal); J18.1 Lobar pneumonia, unspecified organism; I46.9 Cardiac arrest, cause unspecified; E87.3 Alkalosis; I13.0 Hypertensive heart and chronic kidney disease with heart failure and stage 1 through stage 4 chronic kidney disease, or unspecified chronic kidney disease; I48.20 Chronic atrial fibrillation, unspecified; J91.8 Pleural effusion in other conditions classified elsewhere; N17.9 Acute kidney failure, unspecified; E87.5 Hyperkalemia; N18.3 Chronic kidney disease, stage 3 (moderate); E16.2 Hypoglycemia, unspecified; R68.0 Hypothermia, not associated with low environmental temperature; I95.9 Hypotension, unspecified; I27.29 Other secondary pulmonary hypertension; Z96.649 Presence of unspecified artificial hip joint; G89.29 Other chronic pain; K21.9 Gastro-esophageal reflux disease without esophagitis; M54.9 Dorsalgia, unspecified; I25.10 Atherosclerotic heart disease of native coronary artery without angina pectoris; I50.82 Biventricular heart failure; J43.9 Emphysema, unspecified; Z87.11 Personal history of peptic ulcer disease; I25.2 Old myocardial infarction; Z87.891 Personal history of nicotine dependence; Z95.0 Presence of cardiac pacemaker; Z79.899 Other long term (current) drug therapy
CPT/HCPCS: 31645; 32555; 32557; 36415; 36569; 36600; 49440; 70450; 71045; 71250; 74018; 74176; 76000; 76937; 80048; 80053; 80202; 81001; 82550; 82553; 82570; 82803; 82810; 82948; 83605; 83735; 83880; 84100; 84132; 84134; 84145; 84300; 84439; 84443; 84484; 85018; 85025; 85610; 85730; 86885; 86900; 86901; 86920; 87040; 87070; 87077; 87081; 87088; 87186; 92950; 93005; 93306; 93880; 93971; 94002; 94003; 94640; 94760; 95816; 96361; 96365; 96375; 97110; 97161; 97530; 97535; 99285; B4087; C1713; C9113; G0378; J0171; J0461; J0610; J0692; J0696; J1250; J1610; J1644; J1815; J1940; J1956; J2212; J2250; J2270; J2805; J2997; J3010; J3370; J3411; J3475; J3480; J3490; J7050; J7060; J7070; J7626; P9016; Q9963; Q9967

== ENCOUNTER 2019-08-13 10:30 | Outpatient (CLI) | payer OTHER, BC ==
[~2019-08-13 10:30] MED LIST changes: +BUSP5TAB3 PO; +ESCI5TAB12 PO; +FLUT1BLS4 PO; -HYDR-3972 PO; +HYDR-4353 PO; +ONDA4TAB12 PO; +PRED20TA PO; -atropine 0.1mg/ml 10ml syringe ONE; -calcium chloride 100 MG/1 ML inj IV ONE; -epiNEPHrine 0.1mg/ml 10ml syringe ONE; -rocuronium 10mg/ml inj IV ONE; -sodium bicarbonate (8.4%) 1 mEq/ml syringe ONE
== END 2019-08-13 23:59 | disposition home or self-care (01) ==
LOC: 64 CT 10:30
PROVIDERS: ATTEND Internal Medicine Critical Care Medicine
DX: J98.11 Atelectasis (principal); J96.90 Respiratory failure, unspecified, unspecified whether with hypoxia or hypercapnia
CPT/HCPCS: 71250